=== PATIENT | male | born 1945 | race Caucasian/White ===

== ENCOUNTER → 2019-03-21 09:21 | Outpatient (CLI) | payer MEDICARE, OTHER, SELFPAY ==
--- NOTE | 2019-03-21 09:25 | DI.CT.S_ITS ---
PROCEDURE: CT CHEST ABD PEL W CON INDICATIONS: right testicular seminoma pT3 pNx pMx, right. TECHNIQUE: After the administration of oral and intravenous contrast, 5 mm thick sections acquired from the lung apices to the symphysis. 5 mm coronal and sagittal reformats were performed, with additional 7 mm coronal MIP reformats through the lungs. For radiation dose reduction, the following was used: automated exposure control, adjustment of mA and/or kV according to patient size. COMPARISON: CT abdomen pelvis 01/25/2019, 11/28/2015. FINDINGS: Image quality: Excellent. CHEST: Lungs and pleura: No acute airspace opacities. No mass or significant pulmonary nodule perigastric granuloma in the right middle lobe. No pleural effusions or pneumothorax. Central and peripheral airways appear patent and normal in caliber. Mediastinum: Heart size is normal. Three-vessel coronary artery calcifications. No pericardial effusion. No mediastinal or hilar adenopathy by size criteria. Thoracic aorta and central pulmonary arteries are normal in size. Esophagus is normal in caliber. No hiatal hernia. Chest wall: No axillary or supraclavicular adenopathy by size criteria. Thyroid gland is unremarkable. Cervical spine ACDF. ABDOMEN: Solid organs: Liver is normal in size and enhancement. Small hypodensity in segment 4 which is unchanged since 2016 and most likely represents a cyst or hemangioma. No suspicious focal lesion. Gallbladder is unremarkable. Biliary system is non dilated. Pancreas enhances normally. Spleen is normal in size and enhancement. No adrenal nodules. Kidneys demonstrate normal size and enhancement, without hydronephrosis. Peritoneum and bowel: Bowel loops demonstrate normal wall thickness and caliber. No free fluid or air. Nodes and vessels: -Aortocaval lymph node measuring 2 x 1.8 cm, (2/72), previously remeasured 1.4 x 1.2 cm. -There may be a nonenlarged lymph node immediately superior. Aorta and inferior vena cava are normal in size. Miscellaneous: No ventral hernias. PELVIS: Genitourinary: Bladder wall thickness is normal. Miscellaneous: There is a small volume of fluid in the right inguinal canal with surrounding enhancement. As measures approximately 4.8 x 2.5 cm, (coronal 4/20). Minimal inflammatory change in the subcutaneous tissues. This is at the site of presumed right orchiectomy. Bones: No suspicious bony lesions. No vertebral body compression fractures. IMPRESSION: 1. Enlarging aortocaval lymph node highly suspicious for metastatic disease. 2. Small fluid collection in the right inguinal canal with rim enhancement. This may be due to abscess or postoperative seroma. 3. No metastatic disease in the chest. Comment: Findings were discussed with Nora at [facility] on behalf of Adonis Fox MD at the time of dictation. Dictated by: Carlitos Almonte M.D. on 03/21/2019 at 10:31 Approved by: Carlitos Almonte M.D. on 03/21/2019 at 10:50
== END ==
PROVIDERS: PCP Family Medicine; Visit Provider Internal Medicine Hematology & Oncology
DX: C62.11 Malignant neoplasm of descended right testis (principal); R59.0 Localized enlarged lymph nodes
CPT/HCPCS: 71260; 74177; Q9967

== ENCOUNTER → 2019-04-20 06:27 | Outpatient (CLI) | payer MEDICARE, OTHER, SELFPAY ==
--- NOTE | 2019-04-20 06:28 | DI.ECHO.S_ITS ---
[facility] +---------+ : : [address] : : : : [id number] : : : : Phone: [phone]+ Echocardiogram Report + + :Name: TUNDE BELLO Study Date: 04/20/2019 Height: 69 in : :[facility] Weight: 178 lb : : Gender: Male BSA: 2.0 m2 : :: 1945 Age: 73 yrs BP: 152/74 mmHg: :Reason For Study: PRE CHEMO : : Performed By: [facility] Staff : :Referring: BETHANY BROWN : + + Interpretation Summary The left ventricle is normal in size. The ejection fraction is estimated to be 60-65%. The right ventricle is normal in size and function. There is moderate to severe mitral regurgitation. The IVC is of normal diameter and collapses greater than 50% with a sniff. This suggests a low right atrial pressure of 3 mm Hg. Procedure: A two-dimensional transthoracic echocardiogram with color flow and Doppler was performed. The study quality was technically adequate. There is no prior echocardiogram noted for this patient. The patient was in normal sinus rhythm during the exam. Left Ventricle: The left ventricle is normal in size. Proximal septal thickening is noted. There is no echo evidence for significant left ventricular outflow tract obstruction. There is no thrombus. Left ventricular systolic function is normal. The ejection fraction is estimated to be 60-65%. There are no focal wall motion abnormalities. MV E/A: 1.3 Med Peak E' Zach: 6.9 cm/sec E/E' med: 15.2. Right Ventricle: The right ventricle is normal in size and function. Atria: The left atrium is moderately dilated. Right atrial size is normal. The interatrial septum is intact with no evidence for an atrial septal defect. Mitral Valve: There is mild mitral annular calcification. The mitral valve leaflets appear borderline thickened, but open well. There is moderate to severe mitral regurgitation. Aortic Valve: The aortic valve is trileaflet. The aortic valve opens well. There is mild aortic valve sclerosis. There is no aortic valve stenosis. No aortic regurgitation is present. Tricuspid Valve: The tricuspid valve is normal in structure and function. There is trace tricuspid regurgitation. Pulmonary artery pressures cannot be estimated because of the lack of a measurable TR jet velocity. Pulmonic Valve: The pulmonic valve leaflets are thin and pliable; valve motion is normal. There is trace pulmonic regurgitation. Great Vessels: The aortic root is normal size. The dimensions of the ascending aorta are normal. The pulmonary artery is normal size. The IVC is of normal diameter and collapses greater than 50% with a sniff. This suggests a low right atrial pressure of 3 mm Hg. Pericardium/ Pleura There is no pericardial effusion. There is no pleural effusion. MMode/2D Measurements & Calculations LVIDd: 4.2 cm LVOT diam: 2.0 cm LVIDs: 2.8 cm Ao root diam: 3.5 cm FS: 35.1 % Aortic Jxn: 2.6 cm EPSS: 0.48 cm IVSd: 1.1 cm LVPWd: 1.0 cm LV landaverde. diameter/BSA (cm/m^2): 2.2 LV sys. diameter/BSA (cm/m^2): 1.4 LA A2 area: 23.0 cm2 RA long axis: 4.9 cm LA A4 area: 26.5 cm2 RA area: 16.1 cm2 LA length (vol): 6.2 cm RA vol: 45.0 ml LA vol: 84.1 ml RA : 22.9 ml/m2 LA vol index: 42.8 ml/m2 TAPSE: 1.9 cm Doppler Measurements & Calculations Ao V2 max: 118.6 cm/sec LVOT Max Zach: 96.7 cm/sec Ao V2 mean: 80.1 cm/sec LV V1 max P.7 mmHg Ao max P.6 mmHg LV V1 VTI: 25.4 cm Ao mean P.0 mmHg AMRCIAL(I,D): 3.0 cm2 Ao V2 VTI: 25.8 cm MARCIAL(V,D): 2.5 cm2 sev ratio: 0.98 MARCIAL indexed to BSA (cm^2/m^2): 1.5 MV E max zach: 104.9 cm/sec PA V2 max: 49.3 cm/sec MV A max zach: 80.2 cm/sec PA V2 mean: 39.3 cm/sec MV E/A: 1.3 PA mean P.68 mmHg Med Peak E' Zach: 6.9 cm/sec PA Accel Time: 0.13 sec E/E' med: 15.2 Lat Peak E' Zach: 9.6 cm/sec E/E' lat: 10.9 E/e' average: 13.0 MV dec time: 0.21 sec SV([facility]): 76.7 ml Reading Physician:06:14 PM
== END ==
PROVIDERS: PCP Family Medicine; Visit Provider Internal Medicine Hematology & Oncology
DX: Z01.818 Encounter for other preprocedural examination (principal); C62.11 Malignant neoplasm of descended right testis; I08.0 Rheumatic disorders of both mitral and aortic valves
CPT/HCPCS: 93306

== ENCOUNTER → 2019-04-24 13:05 | Day surgery (SDC) | payer MEDICARE, OTHER, SELFPAY | END | disposition home or self-care (01) | LOC: OR 13:09 | PROVIDERS: PCP Family Medicine; Visit Provider Specialist | DX: C62.91 Malignant neoplasm of right testis, unspecified whether descended or undescended (principal); Z53.9 Procedure and treatment not carried out, unspecified reason | CPT/HCPCS: 36561; J2405; J2704; J3010 ==

== ENCOUNTER 2019-04-26 10:39 | Day surgery (SDC) | payer MEDICARE, OTHER, SELFPAY ==
[2019-04-26] VITALS (7 sets, daily range): BP systolic 120–164; BP diastolic 69–84; PULSE 65–81; RESP 8–20; TEMP 36.1–36.3; O2SAT 96–100; BMI 25.0
--- NOTE | 2019-04-26 | DI.RAD.S_ITS ---
PROCEDURE: XR CHEST 1V INDICATIONS: port placement TECHNIQUE: One view of the chest was acquired. COMPARISON: None. FINDINGS: Surgical changes and devices: Left chest wall Port-A-Cath tip is in SVC. Lungs and pleura: Lungs are clear. No pleural effusions or pneumothorax. Mediastinum: Mediastinal contours appear normal. Heart size is enlarged. Bones and chest wall: No suspicious bony lesions. Overlying soft tissues appear unremarkable. IMPRESSION: Left chest wall Port-A-Cath tip is in SVC. No gross pneumothorax. Dictated by: Ac Greene M.D. on 04/26/2019 at 15:22 Approved by: Ac Greene M.D. on 04/26/2019 at 15:23
[2019-04-26] MEDS: LACTATED RINGERS 1,000 ML 100 ML IV (12:56)
--- NOTE | 2019-04-26 13:26 | PM.PREOP ---
Pre-operative Note Interval Note History & Physical reviewed/Exam performed by Physician: Yes Changes to H&P: No
--- NOTE | 2019-04-26 13:38 | SUR.OPER ---
Supine on padded OR bed, head on pillow, arms secured on padded arm boards at <90 degrees abduction, legs uncrossed, safety belt at thigh, tape over blanket over lower legs.
[2019-04-26] MEDS: CEFAZOLIN 2 GM/100 ML FROZ.PIGGY IV (14:00)
[2019-04-26] MEDS: BUPIVACAINE 0.25% W/ EPI (PF) 10 ML VIAL 20 ML INJ (14:16)
[2019-04-26] MEDS: HEPARIN 5,000 UNIT, SODIUM CHLORIDE 0.9% 50 ML IV (14:18)
--- NOTE | 2019-04-26 15:13 | PM.OP.1 ---
Operative Date/Time/Diagnoses Date of procedure: 04/26/19 Time of procedure: 15:13 Pre-op diagnosis: Testicular cancer Post-op diagnosis: same Procedure & Clinicians Procedure: portacath placement via left IJ, using US and flouro guidance Same procedure as scheduled: Yes Operative Notes Procedure in detail: Patient was placed supine on the operating room table and underwent general LMA anesthesia. The neck and chest were prepped and draped in the usual fashion except. The patient was positioned in Trendelenburg, and local anesthetic was infiltrated beneath the skin overlying the left IJ. The left neck was examined with ultrasound, and an appropriate position on the internal jugular vein was identified. The left IJ was accessed with a large-bore needle and syringe using simultaneous ultrasound guidance. Dark blood returned indicating venous access, and the guidewire was passed through the needle. Fluoroscopy was used to identify the position of the guidewire, which appeared appropriate. A 3 cm transverse incision was then made in the skin on the left chest wall and a 2 cm x 2 cm pocket was created inferior to the incision. The port was put together and flushed with heparinized saline. It was positioned in the pocket, and the tunneler was used to tunnel the catheter up to the jugular vein. A skin incision was made over top of the guide wire, and the dilator and introducer sheath were passed over the wire using fluoro guidance. The wire and dilator were then removed and the sheath was left in place. The catheter was cut to the appropriate length after evaluating its length using fluoro with the catheter position on the patient's chest. Once it was tapered to appropriate length the catheter was passed through the introducer and then the sheath was peeled away. Again using fluoro guidance, the catheter tip appeared to be in good position within the superior vena cava at the cavoatrial junction. The port was fixed to the chest wall using 3 0 silk suture. The skin was closed with 3 0 Vicryl and 4 0 Monocryl, and the skin incisions were sealed with Dermabond. The port was then accessed using a zuniga needle and syringe. I was able to draw back blood easily and flush with 5mL heparanized saline. This concluded the procedure and the patient was awakened from anesthesia and transferred to the postanesthesia care unit in stable condition. Needle sponge and instrument counts were correct x2 at the end of the case. The patient tolerated the procedure well and was transferred to the PACU in stable condition. In the PACU of follow-up chest x-ray was done which showed no pneumothorax and good positioning of the catheter. Complications: none Post-operative Condition: stable Disposition: PACU
--- NOTE | 2019-04-26 15:48 | SUR.PHASEI ---
Discharged patient home with [id number]. RX given for PO narcotic. Ice bag given for operative site. VSS at discharge.
== END 2019-04-26 15:56 | disposition home or self-care (01) ==
PROVIDERS: PCP Family Medicine; Visit Provider Surgery
PROC: (CPT 36561; principal; 2019-04-26 12:45)
DX: C62.91 Malignant neoplasm of right testis, unspecified whether descended or undescended (principal); Z45.2 Encounter for adjustment and management of vascular access device; I10 Essential (primary) hypertension; E03.9 Hypothyroidism, unspecified
CPT/HCPCS: 36561; 71045; 76000; C1788; J0690; J1644

== ENCOUNTER → 2019-05-01 12:09 | Outpatient (CLI) | payer MEDICARE, OTHER, SELFPAY ==
--- NOTE | 2019-05-05 08:34 | PM.PFT.1 ---
Pulmonary Function Test Referral & Results Date Patient Seen: 05/01/19 Requesting provider: Adonis Fox Indication: Cancer Results: The spirometry demonstrates an FVC of 2.68 L which is 62% of predicted. The FEV1 was measured at 2.66 L which is 84% of predicted. The FEV1/FVC ratio was 99 which is 136% of predicted. No bronchodilator was administered Lung volumes show an SVC of 3.87 L which is 85% of predicted. The diffusing capacity was measured at 22.15 which is 68% of predicted. No hemoglobin value was provided, so no correction for potential anemia could be made, if appropriate. The maximum voluntary ventilation was normal Interpretation: This study demonstrates mild obstructive lung disease based on slight reduction in FEV1 although this is not supported by shape of flow volume loop There also may be mild restrictive lung disease based on slight reduction SVC There is a more significant reduction in diffusing capacity (unless patient is anemic) is suggest more significant disease at the capillary alveolar level Overall this study seems to show some element of pulmonary vascular disease that evidence of any truly significant parenchymal disease
== END ==
PROVIDERS: PCP Family Medicine; Visit Provider Internal Medicine Hematology & Oncology
DX: Z01.818 Encounter for other preprocedural examination (principal)
CPT/HCPCS: 94060; 94726; 94729

== ENCOUNTER 2019-05-05 08:07 | Outpatient (RCR) | payer MEDICARE, OTHER, SELFPAY ==
[2019-05-05 08:15] VITALS: BP 141/66; PULSE 50; RESP 20; TEMP 36.3; O2SAT 100
[2019-05-05] MEDS: SODIUM CHLORIDE 0.9% 1,000 ML 500 ML IV (08:16)
[2019-05-05] MEDS: ONDANSETRON 16 MG in SODIUM CHLORIDE 0.9% 50 ML 232 ML IV (08:17)
[2019-05-05] MEDS: LORazepam 0.5 MG TABLET PO (08:39)
[2019-05-05] MEDS: MANNITOL IV (09:49)
[2019-05-05] MEDS: [UNRECOGNIZED DRUG - OTHER] IV (09:49)
[2019-05-05] MEDS: CISPLATIN IV (09:49)
[2019-05-05] MEDS: MAGNESIUM SULFATE IV (09:49)
[2019-05-05] MEDS: NORMAL SALINE IV (11:13)
[2019-05-05] MEDS: ETOPOSIDE IV (11:13)
== END 2019-05-23 13:36 ==
LOC: INF 08:07
PROVIDERS: PCP Family Medicine; Visit Provider Internal Medicine Hematology & Oncology
DX: Z01.818 Encounter for other preprocedural examination (principal); C62.11 Malignant neoplasm of descended right testis
CPT/HCPCS: J1100; J2405

== ENCOUNTER → 2019-05-15 09:32 | Outpatient (CLI) | payer MEDICARE, OTHER, SELFPAY ==
--- NOTE | 2019-05-15 09:34 | DI.CT.S_ITS ---
PROCEDURE: CT HEAD/BRAIN WO CON INDICATIONS: MULTIPLE FALLS TECHNIQUE: Noncontrast 4.5 mm thick angled axial sections acquired from the foramen magnum to the vertex, with coronal and sagittal reformats. For radiation dose reduction, the following was used: automated exposure control, adjustment of mA and/or kV according to patient size. COMPARISON: None. FINDINGS: Image quality: Excellent. CSF spaces: Basal cisterns are patent. No extra-axial fluid collections. The ventricles are symmetric in size and shape. Brain: No intracranial bleeds or masses. There is cerebral volume loss for age, with resultant ventricular and sulcal prominence. There are periventricular and deep white matter chronic small vessel ischemic changes. There is intracranial internal carotid artery atherosclerosis. Skull and face: Calvarium and visualized facial bones appear intact, without suspicious lesions. Sinuses: Visualized sinuses and mastoids are clear. IMPRESSION: No acute intracranial hemorrhage is seen. No acute intracranial process is seen. Note is made of age-appropriate brain parenchymal volume loss and chronic small vessel ischemic changes. Dictated by: Matt Kang M.D. on 05/15/2019 at 8:48 Approved by: Matt Kang M.D. on 05/15/2019 at 8:49
== END ==
PROVIDERS: PCP Family Medicine; Visit Provider Internal Medicine Hematology & Oncology
DX: R29.6 Repeated falls (principal); C62.11 Malignant neoplasm of descended right testis
CPT/HCPCS: 70450

== ENCOUNTER 2019-05-15 09:44 | Emergency (ER) | payer MEDICARE, OTHER, SELFPAY ==
[2019-05-15] VITALS (20 sets, daily range): BP systolic 76–139; BP diastolic 48–84; PULSE 69–151; RESP 13–24; TEMP 36.4; O2SAT 90–100
--- NOTE | 2019-05-15 10:01 | DI.RAD.S_ITS ---
PROCEDURE: XR CHEST 1V INDICATIONS: chest pain TECHNIQUE: One view of the chest was acquired. COMPARISON: [facility], CT, CT CHEST ABD PEL W CON, 03/21/2019, 10:08. [facility], CR, XR CHEST 1V, 04/26/2019, 15:04. FINDINGS: Surgical changes and devices: Left chest wall henrietta catheter, tip of which projects over the upper SVC. Lungs and pleura: Lungs are clear. No pleural effusions or pneumothorax. Body fold artifact projects over the left upper chest. Mediastinum: Mediastinal contours appear normal. Heart size is normal. Bones and chest wall: No suspicious bony lesions. Overlying soft tissues appear unremarkable. IMPRESSION: No acute process. Dictated by: Lakisha Moreno M.D. on 05/15/2019 at 10:52 Approved by: Lakisha Moreno M.D. on 05/15/2019 at 10:54
--- NOTE | 2019-05-15 10:03 | ED_ITS ---
HPI - Arrhythmia/Palpitations General Chief Complaint: Arrhythmia/Palpitations Stated Complaint: Having a hard time walking. 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 He was at the infusion oncology clinic for an infusion today when they noted his heart rate to be in the 150s and blood pressure in the 80s along with abnormal blood work. His creatinine is 5.1 it was previously normal, and a potassium at 2.6. He was dizzy and lightheaded over the weekend he almost passed out but he continues to drink fluids. He can't continues to urinate he has felt nauseous but no vomiting. He has about 6 episodes of diarrhea a day but he said it's not actually too bad. He gets short of breath with exertion which is not abnormal for him. Related Data Home Medications Medication Instructions Recorded Confirmed acetaminophen [Tylenol Extra 500 mg PO Q4H PRN 03/20/19 05/15/19 Strength] diphenhydramine-acetaminophen 1 tab PO BEDTIME PRN 03/20/19 05/15/19 [Tylenol PM Extra Strength] levothyroxine [Synthroid] 150 mcg PO DAILY 03/20/19 05/15/19 lisinopril 20 mg PO BID 03/20/19 05/15/19 loratadine 10 mg PO DAILY 03/20/19 05/15/19 multivitamin 1 cap PO DAILY 03/20/19 05/15/19 vitamin B complex 1 tab PO DAILY 03/20/19 05/15/19 atorvastatin 40 mg PO DAILY 04/20/19 05/15/19 Previous Rx's Medication Instructions Recorded docusate sodium 100 mg PO BID #20 cap 04/26/19 ondansetron HCl [Zofran] 4 mg PO Q6H 60 Days #240 tab 05/01/19 Allergies Allergy/AdvReac Type Severity Reaction Status Date / Time No Known Drug Allergies Allergy Verified 05/15/19 10:01 Review of Systems Review of Systems ROS Unobtainable: All systems reviewed & are unremarkable except as noted in HPI and below Constitutional Constitutional: Denies chills, Denies fever(s), Denies lethargy and Denies weakness Cardiovascular Cardiovascular: Reports rapid heart rate and Reports lightheadedness Gastrointestinal Gastrointestinal: Denies abdominal pain, Denies change in bowel habits, Denies diarrhea, Denies nausea and Denies vomiting Genitourinary Genitourinary: Reports as per HPI, Denies hematuria, Denies flank pain, Denies urinary incontinence and Denies urinary urgency Musculoskeletal Musculoskeletal: Denies back pain, Denies muscle weakness, Denies numbness and Denies tingling Integumentary/Breasts Skin/Breast: Denies pruritus, Denies erythema, Denies rash and Denies wounds Neurologic Neurologic: Denies numbness, Denies tingling and Denies weakness Patient History Medical History Hyperlipidemia (Acute) Hypertension (Acute) Hypothyroidism (Acute) Stroke (Acute) Testicular cancer (Acute) Surgical History History of neck surgery (Acute ~1986) Hx of unilateral orchiectomy (Acute 02/23/19) Family History Mother Alzheimer disease Father Heart disease Social History household members: other occupational status: previously employed Smoking Status: Former smoker alcohol intake: never substance use type: does not use Smoking Status: Former smoker alcohol intake frequency: 0-2 drinks per day Substance Use Type: does not use Exam Initial Vital Signs Initial Vital Signs: Vital Signs Temperature 97.6 F 05/15/19 09:45 Pulse Rate 151 H 05/15/19 09:45 Respiratory Rate 24 05/15/19 09:45 Blood Pressure 139/84 05/15/19 09:45 Pulse Oximetry 100 05/15/19 09:45 GENERAL: Chronically ill male and in no acute distress. HEENT: Head atraumatic,EOMI, pupils reactive, CARDIOVASCULAR: Tachycardic irregularly irregular RESPIRATORY: Breath sounds equal bilaterally, no wheezes rales or rhonchi. ABDOMEN: Soft, nontender. Normoactive bowel sounds all 4 quadrants. No guarding or rebound. EXTREMITIES: Normal range of motion, no clubbing or edema. Neurovascularly intact NEUROLOGICAL: Alert and oriented x4.Normal gait and speech. Cranial nerves II t hrough XII grossly intact. SKIN: Warm, dry, no laceration, no petechiae, no rashes or lesions. Course Orders Ordered: ED Orders 05/15/19 10:01 XR chest 1V Stat EKG-12 Lead Stat 05/15/19 10:09 Complete Blood Count AUTO DIFF Stat Comprehensive Metabolic Panel Stat Lipase Stat Magnesium Stat Partial Thromboplastin Time Stat Prothrombin Time INR Stat Troponin & CK Cardiac Panel Stat 05/15/19 13:35 Troponin I Stat 05/15/19 14:54 US renal complete Stat DILTIAZEM (Diltiazem 125 Mg/125 Ml-D5w) 125 mg in 125 mls @ 5 mls/hr IV TITRATE DAE; Protocol Last Titration: 05/15/19 16:22 Dose: 0 mg/hr, 0 mls/hr Documented by: Titration: 05/15/19 14:05 Dose: 0 mg/hr, 0 mls/hr Documented by: Admin: 05/15/19 11:32 Dose: 5 mg/hr, 5 mls/hr Documented by: COREY Discontinued Medications Aspirin (Aspirin Chew) 324 mg PO NOW ONE Stop: 05/15/19 11:14 Last Admin: 05/15/19 11:26 Dose: 324 mg Documented by: COREY Diltiazem HCl (Cardizem) 10 mg IV NOW ONE Stop: 05/15/19 10:15 Last Admin: 05/15/19 10:34 Dose: 10 mg Documented by: MARYELLEN Sodium Chloride (Normal Saline 0.9%) 1,000 mls @ 1,000 mls/hr IV BOLUS ONE Stop: 05/15/19 11:09 Last Infusion: 05/15/19 11:10 Dose: 0 mls/hr Documented by: Admin: 05/15/19 10:10 Dose: 1,000 mls/hr Documented by: MARYELLEN Potassium Chloride 40 meq/ (Sodium Chloride) 520 mls @ 130 mls/hr IV NOW ONE Stop: 05/15/19 15:11 Last Infusion: 05/15/19 16:19 Dose: 0 mls/hr Documented by: MARYELLEN Cosigned by: COREY Admin: 05/15/19 11:39 Dose: 130 mls/hr Documented by: COREY Cosigned by: TERRIE Sodium Chloride (Normal Saline 0.9%) 1,000 mls @ 150 mls/hr IV BOLUS ONE Stop: 05/15/19 18:04 Last Infusion: 05/15/19 16:23 Dose: 0 mls/hr Documented by: Admin: 05/15/19 11:27 Dose: 150 mls/hr Documented by: MARYELLEN Metoprolol Tartrate (Lopressor) 5 mg IV NOW ONE Stop: 05/15/19 14:42 Last Admin: 05/15/19 14:49 Dose: 5 mg Documented by: CPRUITT Consultations Consultation #1: Dr. Nicholson Time: 11:48 Vital Signs Vital signs: Vital Signs - 8 hr 05/15/19 10:45 05/15/19 10:55 05/15/19 11:10 Pulse Rate 116 H 117 H 124 H Respiratory Rate 18 20 15 Blood Pressure [Left Arm] 95/49 L 76/55 L 100/48 L Pulse Oximetry 99 99 05/15/19 11:25 05/15/19 11:55 05/15/19 12:05 Pulse Rate 69 110 H 110 H Respiratory Rate 20 17 17 Blood Pressure [Left Arm] 83/56 L 95/52 L 82/52 L Pulse Oximetry 100 100 100 05/15/19 12:15 05/15/19 12:30 05/15/19 13:10 Pulse Rate 115 H 119 H 120 H Respiratory Rate 18 18 17 Blood Pressure [Left Arm] 84/64 L 79/54 L 99/51 L Pulse Oximetry 94 94 99 05/15/19 14:48 05/15/19 14:57 05/15/19 15:05 Pulse Rate 116 H 111 H 107 H Respiratory Rate 15 13 14 Blood Pressure [Left Arm] 95/59 L 92/64 94/57 L Pulse Oximetry 100 100 96 05/15/19 16:00 Pulse Rate 107 H Respiratory Rate 16 Blood Pressure [Left Arm] 101/66 Pulse Oximetry 90 L MDM - Arrhythmia/Palpitations Lab Data Attestation: I reviewed the patient's lab results. Result diagrams: 05/15/19 10:09 05/15/19 10:09 Labs: Lab Results 05/15/19 05/15/19 05/15/19 Range/Units 10:09 10:09 10:09 WBC 2.5 L (4.5-11.0) X10^3/uL RBC 3.77 L (4.5-5.9) X10^6/uL Hgb 11.6 L (13.5-17.5) g/dL Hct 34.0 L (41-53) % MCV 90.1 (80-100) fL MCH 30.9 (26-34) PG MCHC 34.3 (30-36) % RDW 12.7 (11.6-14.8) % Plt Count 182 (150-400) X10^3/uL Neut % (Auto) Not Reportable Lymph % (Auto) Not Reportable Orange % (Auto) Not Reportable Eos % (Auto) Not Reportable Baso % (Auto) Not Reportable Lymph # (Auto) Not Reportable Orange # (Auto) Not Reportable Baso # (Auto) Not Reportable Total Counted 100 Seg Neutrophils % 33.0 L (38-70) % Band Neutrophils % 10.0 H (3-7) % Lymphocytes % (Manual) 16.0 L (25-45) % Atypical Lymphs % 2.0 H ( - 0) % Monocytes % (Manual) 35.0 H (2-11) % Metamyelocytes % 2.0 H (-0) % Myelocytes % 2.0 H (-0) % Neutrophils # (Manual) 1075 L (0703-8804) /uL RBC Morphology See below [employer] Cells 1+ H PT 15.7 H (10.1-12.7) SECONDS INR 1.4 H (0.9-1.3) APTT 27 (26.4-36.2) SECONDS Sodium 133 L (137-145) mmol/L Potassium 2.2 L* (3.4-5.1) mmol/L Chloride 100 (98-107) mmol/L Carbon Dioxide 15 L (22-32) mmol/L BUN 81 H (9-20) mg/dL Creatinine 4.70 H (0.66-1.25) mg/dL Estimated GFR 12.3 L (>60) mL/min BUN/Creatinine Ratio 17.2 (6-22) Glucose 121 H (80-110) mg/dL Calcium 8.1 L (8.4-10.2) mg/dL Magnesium (1.6-2.3) mg/dL Total Bilirubin 0.5 (0.2-1.3) mg/dL AST 43 (17-59) IU/L ALT 86 H (<50) IU/L Alkaline Phosphatase 72 (38-126) U/L Total Creatine Kinase 210 H (55-170) U/L CK-MB (CK-2) 10.80 H (<2.37) ng/mL CK-MB (CK-2) Rel Index 5.1 H (1.5-5.0) % Troponin I 0.272 H* (0.01-0.034) ng/mL Total Protein 5.6 L (6.3-8.2) g/dL Albumin 3.0 L (3.5-5.0) g/dL Globulin 2.6 (1.7-4.1) g/dL Albumin/Globulin Ratio 1.2 (1.0-2.8) Lipase 25 (23-300) U/L 05/15/19 05/15/19 Range/Units 10:09 13:35 WBC (4.5-11.0) X10^3/uL RBC (4.5-5.9) X10^6/uL Hgb (13.5-17.5) g/dL Hct (41-53) % MCV (80-100) fL MCH (26-34) PG MCHC (30-36) % RDW (11.6-14.8) % Plt Count (150-400) X10^3/uL Neut % (Auto) Lymph % (Auto) Orange % (Auto) Eos % (Auto) Baso % (Auto) Lymph # (Auto) Orange # (Auto) Baso # (Auto) Total Counted Seg Neutrophils % (38-70) % Band Neutrophils % (3-7) % Lymphocytes % (Manual) (25-45) % Atypical Lymphs % ( - 0) % Monocytes % (Manual) (2-11) % Metamyelocytes % (-0) % Myelocytes % (-0) % Neutrophils # (Manual) (3232-6675) /uL RBC Morphology Cristy Cells PT (10.1-12.7) SECONDS INR (0.9-1.3) APTT (26.4-36.2) SECONDS Sodium (137-145) mmol/L Potassium (3.4-5.1) mmol/L Chloride (98-107) mmol/L Carbon Dioxide (22-32) mmol/L BUN (9-20) mg/dL Creatinine (0.66-1.25) mg/dL Estimated GFR (>60) mL/min BUN/Creatinine Ratio (6-22) Glucose (80-110) mg/dL Calcium (8.4-10.2) mg/dL Magnesium 2.1 (1.6-2.3) mg/dL Total Bilirubin (0.2-1.3) mg/dL AST (17-59) IU/L ALT (<50) IU/L Alkaline Phosphatase (38-126) U/L Total Creatine Kinase (55-170) U/L CK-MB (CK-2) (<2.37) ng/mL CK-MB (CK-2) Rel Index (1.5-5.0) % Troponin I 0.210 H* (0.01-0.034) ng/mL Total Protein (6.3-8.2) g/dL Albumin (3.5-5.0) g/dL Globulin (1.7-4.1) g/dL Albumin/Globulin Ratio (1.0-2.8) Lipase (23-300) U/L Imaging Data Chest x-ray: Radiologist's Impresson: PROCEDURE: XR CHEST 1V INDICATIONS: chest pain TECHNIQUE: One view of the chest was acquired. COMPARISON: [facility], CT, CT CHEST ABD PEL W CON, 03/21/2019, 10:08. [facility], CR, XR CHEST 1V, 04/26/2019, 15:04. FINDINGS: Surgical changes and devices: Left chest wall henrietta catheter, tip of which projects over the upper SVC. Lungs and pleura: Lungs are clear. No pleural effusions or pneumothorax. Body fold artifact projects over the left upper chest. Mediastinum: Mediastinal contours appear normal. Heart size is normal. Bones and chest wall: No suspicious bony lesions. Overlying soft tissues appe ar unremarkable. IMPRESSION: No acute process. Dictated by: Lakisha Moreno M.D. on 05/15/2019 at 10:52 CT scan - head: My Impression: Outpatient CT head Radiologist's Impresson: [address] [address] [address] Scan Report Signed Patient: [place] Jr WMR#: [id number] : 1946Acct:[id number] Age/Sex: 73 / MDate of Service: 05/15/19 Loc: CT Accession Number: [id number] Procedure: CT head/brain wo con Ordering Provider: Adonis Fox MD PROCEDURE: CT HEAD/BRAIN WO CON INDICATIONS: MULTIPLE FALLS TECHNIQUE: Noncontrast 4.5 mm thick angled axial sections acquired from the foramen magnum to the vertex, with coronal and sagittal reformats. For radiation dose reduction, the following was used: automated exposure control, adjustment of mA and/or kV according to patient size. COMPARISON: None. FINDINGS: Image quality: Excellent. CSF spaces: Basal cisterns are patent. No extra-axial fluid collections. The ventricles are symmetric in size and shape. Brain: No intracranial bleeds or masses. There is cerebral volume loss for age, with resultant ventricular and sulcal prominence. There are periventricular and deep white matter chronic small vessel ischemic changes. There is intracranial internal carotid artery atherosclerosis. Skull and face: Calvarium and visualized facial bones appear intact, without suspicious lesions. Sinuses: Visualized sinuses and mastoids are clear. IMPRESSION: No acute intracranial hemorrhage is seen. No acute intracranial process is seen. Note is made of age-appropriate brain parenchymal volume loss and chronic small vessel ischemic changes. Dictated by: Matt Kang M.D. on 05/15/2019 at 8:48 ECG Data Attestation: I personally reviewed and interpreted this ECG as follows: Prior ECG tracings: not available for review Interpretation: Atrial fibrillation rate [address] elevation depression or T- wave inversion no priors to compare MDM Narrative Medical decision making narrative: Patient is noted to have acute kidney injury with significant increasing creatinine although it has improved a little with some IV fluids. Potassium still seems to be low at 2.2 he is in new onset AFib with RVR with low blood pressure. Blood pressure does improve with IV fluids and heart rate control slightly. Due to patient's significant increase in creatinine will need to be transferred to facility with his nephrology available if needed. Troponin is also noted to be elevated this is likely due to AFib with RVR and acute kidney injury. Patient denies chest pain. He is given an aspirin. Repeat troponin has decreased some. Dr. nicholson at [facility] has accepted patient, Critical Care Time Critical Care Time Critical Care Time: Yes Total Critical Care Time: 45 Attestation: The high probability of a clinically significant, sudden or life threatening deterioration of the [cardiovascular] system(s) required my full and direct attention, intervention and personal management. The aggregate critical care time was [45] minutes. This time is in addition to time spent performing reported procedures but includes the following: [x] Data Review and interpretation [x] Patient assessment and monitoring of vital signs [x] Documentation [x] Medication orders and management Discharge Plan Departure Patient Disposition: [facility]fer [facility] Prescriptions: No Action lisinopril 20 mg Tablet 20 mg PO BID RF: 0 acetaminophen [Tylenol Extra Strength] 500 mg Tablet 500 mg PO Q4H PRN (Reason: Pain (Scale Score 1-3)) RF: 0 levothyroxine [Synthroid] 150 mcg Tablet 150 mcg PO DAILY RF: 0 vitamin B complex Tablet 1 tab PO DAILY RF: 0 diphenhydramine-acetaminophen [Tylenol PM Extra Strength] 25-500 mg Tablet 1 tab PO BEDTIME PRN (Reason: Insomnia) RF: 0 multivitamin Capsule 1 cap PO DAILY RF: 0 loratadine 10 mg Tablet 10 mg PO DAILY RF: 0 ondansetron HCl [Zofran] 4 mg Tablet 4 mg PO Q6H 60 Days Qty: 240 RF: 3 atorvastatin 40 mg Tablet 40 mg PO DAILY RF: 0 docusate sodium 100 mg capsule 100 mg PO BID Qty: 20 RF: 0
[2019-05-15] MEDS: SODIUM CHLORIDE 0.9% 1,000 ML 1000 ML IV (10:10)
[2019-05-15 10:22] LABS: Hemoglobin 11.6 g/dL (13.5-17.5); Mean Corpuscular HGB Conc 34.3 % (30-36); Mean Corpuscular Hemoglobin 30.9 PG (26-34); Mean Corpuscular Volume 90.1 fL (80-100); Platelet Count 182 X10^3/uL (150-400); Red Blood Cell Count 3.77 X10^6/uL (4.5-5.9); Red Cell Distribution Width 12.7 % (11.6-14.8); White Blood Cell Count 2.5 X10^3/uL (4.5-11.0)
[2019-05-15 10:29] LABS: Add Manual Diff / Slide Review YES
[2019-05-15 10:30] LABS: INR 1.4 (0.9-1.3); Prothrombin Time 15.7 SECONDS (10.1-12.7)
[2019-05-15 10:32] LABS: PTT Partial Thromboplastin Tim 27 SECONDS (26.4-36.2)
[2019-05-15] MEDS: dilTIAZem 5 MG/ML SDV 10 MG IV (10:34)
[2019-05-15 10:36] LABS: Magnesium 2.1 mg/dL (1.6-2.3)
[2019-05-15 10:41] LABS: Alanine Aminotransferase 86 IU/L (<50); Albumin Globulin Ratio 1.2 (1.0-2.8); Alkaline Phosphatase 72 U/L (38-126); Aspartate Aminotransferase 43 IU/L (17-59); BUN Creatinine Ratio 17.2 (6-22); Bilirubin Total 0.5 mg/dL (0.2-1.3); Blood Urea Nitrogen 81 mg/dL (9-20); Calcium 8.1 mg/dL (8.4-10.2); Carbon Dioxide 15 mmol/L (22-32); Chloride 100 mmol/L (98-107); Creatine Kinase 210 U/L (55-170); Estimated Glomerular Filt Rate 12.3 mL/min (>60); Globulin 2.6 g/dL (1.7-4.1); Glucose 121 mg/dL (80-110); HEMOLYSIS < 15 (0-50); Lipase 25 U/L (23-300); Sodium 133 mmol/L (137-145); Total Protein 5.6 g/dL (6.3-8.2)
[2019-05-15 10:56] LABS: CKMB % Relative Index 5.1 % (1.5-5.0)
[2019-05-15 11:12] LABS: Neutrophils Absolute Manual 1075 /uL (3000-5900); Total Cells Counted 100
[2019-05-15 11:13] LABS: Burr Cells 1+; Potassium 2.2 mmol/L (3.4-5.1); Troponin I 0.272 ng/mL (0.01-0.034)
[2019-05-15] MEDS: ASPIRIN 81 MG CHEW TAB 324 MG PO (11:26)
[2019-05-15] MEDS: SODIUM CHLORIDE 0.9% 1,000 ML 150 ML IV (11:27)
[2019-05-15] MEDS: DILTIAZEM 125 MG/125 ML PIGGYBACK IV (11:32)
[2019-05-15] MEDS: POTASSIUM CHLORIDE 40 MEQ in SODIUM CHLORIDE 0.9% 500 ML 130 ML IV (11:39)
[2019-05-15] MEDS: METOPROLOL TARTRATE 5 MG/5 ML INJ IV (14:49)
--- NOTE | 2019-05-15 14:54 | DI.US.S_ITS ---
PROCEDURE: US RENAL COMPLETE INDICATIONS: RENAL FAILURE TECHNIQUE: Real-time scanning was performed of the kidneys and bladder, with image documentation. COMPARISON: [facility], CT, CT CHEST ABD PEL W CON, 03/21/2019, 10:08. [facility], CT, CT ABDOMEN PELVIS WITH CONTRAST, 01/25/2019, 8:42. FINDINGS: Kidneys: Kidneys are normal in size. Right kidney measures 9.7 cm long; left kidney measures 10.7 cm long. Right renal cortical thickness is 1.0 cm; left renal cortical thickness is 1.4 cm. mild increased echogenicity of the kidneys is present. No hydronephrosis or shadowing nephrolithiasis. No suspicious solid mass lesions. Bladder: Pre-void bladder volume is 450 mL. The patient was unable to void at the time of this exam. Thickening and slight irregularity of the wall of the urinary bladder is present. The prostate measures at least 3.1 x 3.1 x 4.7 cm. Bilateral ureteral jets were visualized. Miscellaneous: No free pelvic fluid. IMPRESSION: 1. No hydronephrosis or shadowing nephrolithiasis. 2. Increased echogenicity of the kidneys with mild cortical thinning is suggestive of chronic medical renal disease and clinical correlation is recommended. 3. Distended bladder. The patient was unable to void at the time of the exam. Dictated by: David Cleary M.D. on 05/15/2019 at 15:26 Approved by: David lCeary M.D. on 05/15/2019 at 15:29
--- NOTE | 2019-05-15 16:22 | PC.NURSE ---
Report called to Erin SANTA at [facility].
== END 2019-05-15 16:39 | disposition short-term general hospital (02) ==
PROVIDERS: Emergency Provider Emergency Medicine; PCP Family Medicine
DX: N17.9 Acute kidney failure, unspecified (principal); I48.20 Chronic atrial fibrillation, unspecified; I95.9 Hypotension, unspecified; E87.6 Hypokalemia; R29.6 Repeated falls; C62.11 Malignant neoplasm of descended right testis; R42 Dizziness and giddiness
CPT/HCPCS: 36415; 70450; 71045; 76770; 80053; 82550; 82553; 83690; 83735; 84484; 85025; 85610; 85730; 93005; 96361; 96365; 96366; 96368; 96375; 99284; 99291; 99292; J3480

== ENCOUNTER → 2019-05-29 10:13 | Outpatient (CLI) | payer MEDICARE, OTHER, SELFPAY ==
--- NOTE | 2019-05-29 11:03 | DI.US.S_ITS ---
PROCEDURE: US PERIPH VENOUS LOW EXTREM LT INDICATIONS: LEFT LEG SWELLING TECHNIQUE: Real-time imaging, as well as color and pulse Doppler interrogation, were performed of the lower extremity deep veins from the inguinal ligament to the popliteal fossa. COMPARISON: None. FINDINGS: The common femoral, femoral and popliteal veins are normally compressible, and free of intraluminal thrombus. Color and pulse Doppler demonstrate normal phasic intraluminal flow. There is normal augmentation response to distal compression maneuver. Subcutaneous edema about the left lower leg is present. No drainable or loculated fluid collections are evident on the provided images. IMPRESSION: No evidence of left lower extremity deep vein thrombosis. Dictated by: David Cleary M.D. on 05/29/2019 at 11:53 Approved by: David Cleary M.D. on 05/29/2019 at 11:54
== END ==
PROVIDERS: PCP Family Medicine; Visit Provider Internal Medicine Hematology & Oncology
DX: M79.89 Other specified soft tissue disorders (principal); C62.11 Malignant neoplasm of descended right testis
CPT/HCPCS: 93971

== ENCOUNTER → 2019-06-13 13:22 | Outpatient (CLI) | payer MEDICARE, OTHER, SELFPAY ==
--- NOTE | 2019-06-13 13:24 | DI.CT.S_ITS ---
PROCEDURE: CT CHEST WO CON INDICATIONS: hypoxia, on bleomycin treatment, testicular cancer TECHNIQUE: Noncontrast 5 mm thick sections acquired from the pulmonary apices to the posterior costophrenic angles. 1 mm lung window, 5 mm thick coronal and sagittal and 7 mm axial MIP reformats were then acquired. For radiation dose reduction, the following was used: automated exposure control, adjustment of mA and/or kV according to patient size. COMPARISON: [facility], CT, CT CHEST ABD PEL W CON, 03/21/2019, 10:08. FINDINGS: Image quality: Diagnostic. Lungs and pleura: There has been interval development of patchy subpleural airspace disease throughout the lungs, which is predominantly seen within the bilateral lung bases. No larger pulmonary consolidation is evident. Mild bronchiectasis is noted. There is no honeycombing. No effusions or pneumothorax is evident. No lung mass or definite pulmonary nodule is appreciated. Mediastinum: Heart size is enlarged. No pericardial effusion. No mediastinal adenopathy by size criteria. Thoracic aorta and central pulmonary arteries are normal in size. Coronary and aortic atherosclerosis is present. No thoracic aneurysm is identified. There is a left-sided Port-A-Cath central line identified with the tip positioned within the mid superior vena cava. Mild prominence of the wall of the esophagus is present. There is a small moderate-sized hiatal hernia. Bones and chest wall: No suspicious bony lesions. A T12 compression deformity appears grossly unchanged since the prior exam. Prominent degenerative changes of the spine are evident. No axillary or supraclavicular adenopathy by size criteria. Thyroid gland is not adequately evaluated on CT, but does not appear to be enlarged. Abdomen: Included portions of the upper abdomen are essentially unremarkable. Perinephric edema about the upper portions of the kidneys probably senescent. IMPRESSION: 1. Patchy subpleural airspace disease throughout the lungs has developed in the interim, which could potentially represent interval development of an atypical form of pneumonia. However, this appearance is suspicious for either developing organizing pneumonia or pulmonary fibrotic changes, which may be related to bleomycin treatment. Pulmonology consultation may be helpful. Followup CT imaging in 3 months is also recommended. 2. No effusion or pneumothorax. 3. Cardiomegaly without overt heart failure. 4. Small to moderate-sized hiatal hernia. Mild prominence of the wall of the esophagus may be related to chronic reflux. Please correlate clinically. Dictated by: David Cleary M.D. on 06/13/2019 at 12:53 Approved by: David Cleary M.D. on 06/13/2019 at 12:59
== END ==
PROVIDERS: PCP Family Medicine; Visit Provider Internal Medicine Hematology & Oncology
DX: C62.11 Malignant neoplasm of descended right testis (principal); R09.02 Hypoxemia; I51.7 Cardiomegaly; K44.9 Diaphragmatic hernia without obstruction or gangrene; I70.0 Atherosclerosis of aorta; I25.10 Atherosclerotic heart disease of native coronary artery without angina pectoris
CPT/HCPCS: 71250

== ENCOUNTER → 2019-06-15 09:00 | Oncology outpatient (ONC) | payer MEDICARE, OTHER, SELFPAY ==
--- NOTE | 2019-03-20 08:53 | ONC.CONS ---
History of Present Illness - Data of Consult Patient: new to practice Consult date: 03/20/19 Requesting Physician: Dr. De Lamas MD Primary Care Provider: Yaakov Carl MD - Consult Narrative Reason for consult: Right testicular seminoma Narrative: Alexander Zambrano is a 73 year old male. He himself first noticed a painless bump in his right testicle one week before seeing Dr. Aaron Mesa a [facility]. On 01/20/2019, scrotal ultrasound a heterogeneous echogenicity shrunken appearing testis on the right measuring up to 3.2 cm, large right scrotal hydrocele, lobular mass in the right scrotum measuing up to 5.4 cm with heterogenous internal echogenicity. On 01/25/2019, he underwent CT abdomen and pelvis that showed an irregular right scrotal mass with large right hydrocele, interval single 1 cm short axis precaval lymph node, but no other adenopathy or solid visceral metastasis. Mild hepatic steatosis noted. a 1 cm hypodensity in segment 4a of the liver compatible with cyst or hemangioma, and incidental findings of severe atherosclerosis and mild colonic diverticulosis. On 02/13/2019 labs showed AFP 1.8 ng/mL (ref: < 6.1), LDH 220, HCG 7.67 mIU/mL (ref: 0-3.1) CXR on 02/13/2019 showed no acute cardiopulmonary abnormality. Feb 23, 2019, De Mckeon performed inguinal radical right orchiectomy. he final pathology showed seminoma, 7.2 x 5.5 x 3.8 cm, unifocal, tumor invading the tunica albuginea and tunica vaginitis, tumor invading the epididymis, tumor invading spermatic cord, all margins negative, lymphovascular invasion negative, no lymph node identified, and the pathological staging was pT3 pNx. Post-operatively, he has been having persistent drainage from the right scrotum skin break. He admits to good energy. Good appetite. He is complaining of numbness of both bottom of the feet, which is an old problem and he believes it is caused by exposure to [employer] [place]. No pain problems. No Shortness of breath. No cough. No nausea and no vomiting. No chest pain. No stomach pain. No diarrhea, no constipation. De Lamas MD Patient reports pain?: No Home Medications and Allergies Home Medications Medication Instructions Recorded Confirmed Type acetaminophen [Tylenol Extra 500 mg PO Q4H PRN 03/20/19 03/20/19 History Strength] diphenhydramine-acetaminophen 1 tab PO BEDTIME PRN 03/20/19 03/20/19 History [Tylenol PM Extra Strength] docusate sodium [Colace] 100 mg PO TID 03/20/19 03/20/19 History levothyroxine [Synthroid] 150 mcg PO DAILY 03/20/19 03/20/19 History lisinopril 20 mg PO BID 03/20/19 03/20/19 History loratadine 10 mg PO DAILY 03/20/19 03/20/19 History multivitamin 1 cap PO DAILY 03/20/19 03/20/19 History vitamin B complex 1 tab PO DAILY 03/20/19 03/20/19 History Medical History - Medical, Surgical, Family History Medical History: Medical History (Last Updated 03/20/19 @ 09:16 by Adonis Fox MD) Hyperlipidemia Hypertension Hypothyroidism Surgical History: Surgical History (Last Updated 03/20/19 @ 09:16 by Adonis Fox MD) History of neck surgery Onset Date: ~2014 Family History: Family History (Last Updated 03/20/19 @ 09:17 by Adonis Fox MD) Mother Alzheimer disease - Social History Smoking Status: Former smoker Quit Date: 11/14/66 Substance Use Type: does not use Alcohol Intake: former (quited 2014) Review of Systems All systems PM: reviewed and no additional remarkable complaints except as stated Exam Vital signs: Last Vital Signs Temp 98.2 F 03/20/19 09:12 Pulse 73 03/20/19 09:12 Resp 18 03/20/19 09:12 BP 151/81 H 03/20/19 09:12 Pulse Ox 100 03/20/19 09:12 - Constitutional positive no acute distress, positive average body habitus, positive cooperative - Routine HEENT Exam Head: Present: normocephalic, atraumatic Eye: Present: EOMI, PERRL, normal accommodation. Absent: conjunctival icterus ENT: Present: mucous membranes moist - Routine Neck Exam Present: supple. Absent: lymphadenopathy, thyromegaly - Routine Chest/Breast/Axilla Exam Axillae: Absent: lymphadenopathy - Routine Respiratory Exam Present: Clear to auscultation bilaterally. Absent: wheezes - Routine Cardiovascular Exam Present: RRR, S1, S2. Absent: murmur, gallop, rubs - Routine Abdominal Exam Present: soft. Absent: tenderness, distended, organomegaly - Routine Extremities Exam Absent: edema - Routine Neurological Exam Present: alert, oriented X3, CN II-XII intact. Absent: sensory deficit, motor deficit - Routine Psychiatric Exam Present: normal affect Results - Labs Laboratory Last Values WBC 7.7 X10^3/uL (4.5-11.0) 03/20/19 10:00 RBC 4.06 X10^6/uL (4.5-5.9) L 03/20/19 10:00 Hgb 12.7 g/dL (13.5-17.5) L 03/20/19 10:00 Hct 37.6 % (41-53) L 03/20/19 10:00 MCV 92.7 fL (80-100) 03/20/19 10:00 MCH 31.2 PG (26-34) 03/20/19 10:00 MCHC 33.7 % (30-36) 03/20/19 10:00 RDW 13.3 % (11.6-14.8) 03/20/19 10:00 Plt Count 333 X10^3/uL (150-400) 03/20/19 10:00 Neut % (Auto) 63.5 % (50-75) 03/20/19 10:00 Lymph % (Auto) 24.6 % (25-40) L 03/20/19 10:00 [place] % (Auto) 5.6 % (3-14) 03/20/19 10:00 Eos % (Auto) 5.2 % (2-4) H 03/20/19 10:00 Baso % (Auto) 1.1 % (0-2) 03/20/19 10:00 Neut # (Auto) 4900 /uL (5719-6016) 03/20/19 10:00 Lymph # (Auto) 1900 /uL (8312-6828) 03/20/19 10:00 Jay # (Auto) 400 /uL (0-900) 03/20/19 10:00 Eos # (Auto) 400 /uL (0-450) 03/20/19 10:00 Baso # (Auto) 100 /uL (0-100) 03/20/19 10:00 Sodium 139 mmol/L (137-145) 03/20/19 10:00 Potassium 4.6 mmol/L (3.4-5.1) 03/20/19 10:00 Chloride 103 mmol/L (98-107) 03/20/19 10:00 Carbon Dioxide 27 mmol/L (22-32) 03/20/19 10:00 BUN 20 mg/dL (9-20) 03/20/19 10:00 Creatinine 0.90 mg/dL (0.66-1.25) 03/20/19 10:00 Estimated GFR > 60.0 mL/min (>60) 03/20/19 10:00 BUN/Creatinine Ratio 22.2 (6-22) H 03/20/19 10:00 Glucose 99 mg/dL (80-110) 03/20/19 10:00 Calcium 9.7 mg/dL (8.4-10.2) 03/20/19 10:00 Total Bilirubin 0.5 mg/dL (0.2-1.3) 03/20/19 10:00 AST 32 IU/L (17-59) 03/20/19 10:00 ALT 27 IU/L (<50) 03/20/19 10:00 Alkaline Phosphatase 89 U/L (38-126) 03/20/19 10:00 Lactate Dehydrogenase 422 U/L (313-618) 03/20/19 10:00 Total Protein 7.5 g/dL (6.3-8.2) 03/20/19 10:00 Albumin 4.4 g/dL (3.5-5.0) 03/20/19 10:00 Globulin 3.1 g/dL (1.7-4.1) 03/20/19 10:00 Albumin/Globulin Ratio 1.4 (1.0-2.8) 03/20/19 10:00 HCG, Quant < 2.39 mIU/mL (-2.40) 03/20/19 10:00 Assessment and Plan (1) Seminoma of descended right testis Overview: 73 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 Preoperative beta HCG 7.67, AFP 1.8 and LDH 220. Assessment: Postoperatively, patient has not had a repeat CT scan yet. I talked with the patient I will first repeat CT scan and tumor markers. Then, I will talk with him about the stages. Most likely patient has a stage IB pure seminoma. Options include observation or 1 cycle of carboplatin. Plan: 1. CBC, CMP, LDH, BHCG, AFP 2. CT CAP w/contrast 3. RTC in one week
[2019-03-20 09:12] VITALS: BP 151/81; PULSE 73; RESP 18; TEMP 36.8; O2SAT 100
--- NOTE | 2019-03-20 09:45 | ONC.MSW ---
Description: New Pt Intro: f/f visit Activity: Met with pt to introduce myself in person as the BUILDING CODE ADMINISTRATOR/MARGIE, offer services card and establish rapport. Explained availability of ongoing assistance, support and availability to address any ongoing concerns/questions that he may have. No immediate needs were identified at this time. Plan: Continue to monitor for adjustment to diagnosis and treatment plan.
[2019-03-20 10:10] LABS: Add Manual Diff / Slide Review NO; Basophils Absolute Auto 100 /uL (0-100); Basophils Percent Auto 1.1 % (0-2); Eosinophils Absolute Auto 400 /uL (0-450); Eosinophils Percent Auto 5.2 % (2-4); Hematocrit 37.6 % (41-53); Hemoglobin 12.7 g/dL (13.5-17.5); Lymphocytes Absolute Auto 1900 /uL (1100-4500); Lymphocytes Percent Auto 24.6 % (25-40); Mean Corpuscular HGB Conc 33.7 % (30-36); Mean Corpuscular Hemoglobin 31.2 PG (26-34); Mean Corpuscular Volume 92.7 fL (80-100); Monocytes Absolute Auto 400 /uL (0-900); Monocytes Percent Auto 5.6 % (3-14); Neutrophils Absolute Auto 4900 /uL (1500-7000); Neutrophils Percent Auto 63.5 % (50-75); Platelet Count 333 X10^3/uL (150-400); Red Blood Cell Count 4.06 X10^6/uL (4.5-5.9); Red Cell Distribution Width 13.3 % (11.6-14.8); White Blood Cell Count 7.7 X10^3/uL (4.5-11.0)
[2019-03-20 10:28] LABS: Alanine Aminotransferase 27 IU/L (<50); Albumin 4.4 g/dL (3.5-5.0); Albumin Globulin Ratio 1.4 (1.0-2.8); Alkaline Phosphatase 89 U/L (38-126); Aspartate Aminotransferase 32 IU/L (17-59); BUN Creatinine Ratio 22.2 (6-22); Bilirubin Total 0.5 mg/dL (0.2-1.3); Blood Urea Nitrogen 20 mg/dL (9-20); Calcium 9.7 mg/dL (8.4-10.2); Carbon Dioxide 27 mmol/L (22-32); Chloride 103 mmol/L (98-107); Estimated Glomerular Filt Rate > 60.0 mL/min (>60); Globulin 3.1 g/dL (1.7-4.1); Glucose 99 mg/dL (80-110); HEMOLYSIS < 15 (0-50); Lactate Dehydrogenase 422 U/L (313-618); Potassium 4.6 mmol/L (3.4-5.1); Sodium 139 mmol/L (137-145); Total Protein 7.5 g/dL (6.3-8.2)
[2019-03-20 10:44] LABS: HCG Quantitative /Beta subunit < 2.39 mIU/mL (-2.40)
[2019-03-22 15:17] LABS: Alpha Fetoprotein 1.5 ng/mL (< 6.1)
[2019-04-10 13:42] VITALS: BP 136/79; PULSE 80; RESP 18; TEMP 36.6; O2SAT 100
--- NOTE | 2019-04-10 13:53 | ONC.PN ---
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 He himself first noticed a painless bump in his right testicle one week before seeing Dr. Aaron Mesa a [facility]. On 01/20/2019, scrotal ultrasound a heterogeneous echogenicity shrunken appearing testis on the right measuring up to 3.2 cm, large right scrotal hydrocele, lobular mass in the right scrotum measuing up to 5.4 cm with heterogenous internal echogenicity. On 01/25/2019, he underwent CT abdomen and pelvis that showed an irregular right scrotal mass with large right hydrocele, interval single 1 cm short axis precaval lymph node, but no other adenopathy or solid visceral metastasis. Mild hepatic steatosis noted. a 1 cm hypodensity in segment 4a of the liver compatible with cyst or hemangioma, and incidental findings of severe atherosclerosis and mild colonic diverticulosis. On 02/13/2019 labs showed AFP 1.8 ng/mL (ref: < 6.1), LDH 220, HCG 7.67 mIU/mL (ref: 0-3.1) CXR on 02/13/2019 showed no acute cardiopulmonary abnormality. Feb 23, 2019, De Mckeon performed inguinal radical right orchiectomy. he final pathology showed seminoma, 7.2 x 5.5 x 3.8 cm, unifocal, tumor invading the tunica albuginea and tunica vaginitis, tumor invading the epididymis, tumor invading spermatic cord, all margins negative, lymphovascular invasion negative, no lymph node identified, and the pathological staging was pT3 pNx. Interim Events: No Shortness of breath. No cough. No nausea and no vomiting. No chest pain. No stomach pain. No diarrhea, no constipation. He underwent CT CAP on 03/21/2019. The scan showed enlarging aortocaval lymph node highly suspicious for metastatic disease, small fluid collection in the right inguinal canal with rim enhancement, and no metastatic disease in the chest. - Patient Self-Reported Symptoms SR respiratory issues: Cough Home Medications and Allergies Home Medications Medication Instructions Recorded Confirmed Type acetaminophen [Tylenol Extra 500 mg PO Q4H PRN 03/20/19 03/20/19 History Strength] diphenhydramine-acetaminophen 1 tab PO BEDTIME PRN 03/20/19 03/20/19 History [Tylenol PM Extra Strength] docusate sodium [Colace] 100 mg PO TID 03/20/19 03/20/19 History levothyroxine [Synthroid] 150 mcg PO DAILY 03/20/19 03/20/19 History lisinopril 20 mg PO BID 03/20/19 03/20/19 History loratadine 10 mg PO DAILY 03/20/19 03/20/19 History multivitamin 1 cap PO DAILY 03/20/19 03/20/19 History vitamin B complex 1 tab PO DAILY 03/20/19 03/20/19 History Exam Vital signs: Vital Signs Temp Pulse Resp BP Pulse Ox 04/10/19 13:42 97.8 F 80 18 136/79 100 Intake and Output 04/09/19 04/10/19 04/10/19 23:59 07:59 15:59 Other: Weight 80 kg Patient Weight 04/10/19 23:59 Weight 80 kg Results - Labs Laboratory Last Values WBC 7.7 X10^3/uL (4.5-11.0) 03/20/19 10:00 RBC 4.06 X10^6/uL (4.5-5.9) L 03/20/19 10:00 Hgb 12.7 g/dL (13.5-17.5) L 03/20/19 10:00 Hct 37.6 % (41-53) L 03/20/19 10:00 MCV 92.7 fL (80-100) 03/20/19 10:00 MCH 31.2 PG (26-34) 03/20/19 10:00 MCHC 33.7 % (30-36) 03/20/19 10:00 RDW 13.3 % (11.6-14.8) 03/20/19 10:00 Plt Count 333 X10^3/uL (150-400) 03/20/19 10:00 Neut % (Auto) 63.5 % (50-75) 03/20/19 10:00 Lymph % (Auto) 24.6 % (25-40) L 03/20/19 10:00 [place] % (Auto) 5.6 % (3-14) 03/20/19 10:00 Eos % (Auto) 5.2 % (2-4) H 03/20/19 10:00 Baso % (Auto) 1.1 % (0-2) 03/20/19 10:00 Neut # (Auto) 4900 /uL (4945-6167) 03/20/19 10:00 Lymph # (Auto) 1900 /uL (1885-1279) 03/20/19 10:00 [place] # (Auto) 400 /uL (0-900) 03/20/19 10:00 Eos # (Auto) 400 /uL (0-450) 03/20/19 10:00 Baso # (Auto) 100 /uL (0-100) 03/20/19 10:00 Sodium 139 mmol/L (137-145) 03/20/19 10:00 Potassium 4.6 mmol/L (3.4-5.1) 03/20/19 10:00 Chloride 103 mmol/L (98-107) 03/20/19 10:00 Carbon Dioxide 27 mmol/L (22-32) 03/20/19 10:00 BUN 20 mg/dL (9-20) 03/20/19 10:00 Creatinine 0.90 mg/dL (0.66-1.25) 03/20/19 10:00 Estimated GFR > 60.0 mL/min (>60) 03/20/19 10:00 BUN/Creatinine Ratio 22.2 (6-22) H 03/20/19 10:00 Glucose 99 mg/dL (80-110) 03/20/19 10:00 Calcium 9.7 mg/dL (8.4-10.2) 03/20/19 10:00 Total Bilirubin 0.5 mg/dL (0.2-1.3) 03/20/19 10:00 AST 32 IU/L (17-59) 03/20/19 10:00 ALT 27 IU/L (<50) 03/20/19 10:00 Alkaline Phosphatase 89 U/L (38-126) 03/20/19 10:00 Lactate Dehydrogenase 422 U/L (313-618) 03/20/19 10:00 Total Protein 7.5 g/dL (6.3-8.2) 03/20/19 10:00 Albumin 4.4 g/dL (3.5-5.0) 03/20/19 10:00 Globulin 3.1 g/dL (1.7-4.1) 03/20/19 10:00 Albumin/Globulin Ratio 1.4 (1.0-2.8) 03/20/19 10:00 Alpha Fetoprotein 1.5 ng/mL (< 6.1) 03/20/19 10:00 HCG, Quant < 2.39 mIU/mL (-2.40) 03/20/19 10:00 Assessment and Plan (1) Seminoma of descended right testis Overview: 73 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 Preoperative beta HCG 7.67, AFP 1.[address] scan showed enlarging aortocaval lymph nodes highly suspicious for involvement of seminoma. His disease staging was pT3 cN1 (stage IIA). Assessment: I reviewed the CT scan results with the patient. It showed enlargement of the aortocaval lymph nodes highly suspicious for neoplastic metastasis. This case was discussed at our monthly tumor Board. The tumor board recommended adjuvant therapy for this patient given the increase in the aortocaval lymph nodes. Based on NCCN guidelines, I discussed with the patient that there are 2 options: chemotherapy with BEP x3 versus radiation therapy. I discussed the pros and cons of both of them. First I talked about the chemotherapy with bleomycin etoposide and cisplatin. I talked about the possibility of complications including bone marrow suppression, hair loss, kidney damage, neuropathy, pulmonary damage, etc. I also talked about potential side effects of radiation therapy including intestinal radiation induced damage is etc. Patient decided that he would like to go for chemotherapy. Then I talked with him about the the port placement. Patient voiced understanding. I have tentatively schedule the chemotherapy to be started on 05/01/2019. Plan: 1. Surgical Referral for port placement 2. Echocardiogram 3. PFT with DLCO 3. Tentatively BEP x3 to be started 05/01/2019
--- NOTE | 2019-04-19 15:35 | PC.NURSE ---
Chemotherapy Education: Pt provided written information on all topics discussed. Written materials printed from www.[facility].com Pt was given an overview of cancer and mechanism of action of cancer cells, that cancer is caused by cells that are dividing rapidly, and out of control. Traditional chemotherapy works by targeting the fast dividing cells and killing them. Chemotherapy affecting healthy cells dividing quickly causes many of the side effects (hair follicles, bone marrow, mucus membranes). Overview of blood cell functions of white cells to fight infection, red cells to carry oxygen, and platelets to stop bleeding was discussed, and that when bone marrow is affected by chemo, there is a decrease in production of these cells. Home care of the patient following chemotherapy was discussed. Body fluids will be contaminated for 48 hours following treatment, and any body fluids handled by caregivers should be handled wearing gloves, surfaces need to be cleaned with soap and water, any soiled linens or clothing need to be washed separately in hot water, toilet lid should be closed when flushing, person cleaning the toilet should wear gloves. How chemotherapy is administered by the RN?s in the clinic, that orders are double checked by pharmacy and checked again by two RN?s prior to administration. Nurses wear protective gear to prevent exposure to them of the chemotherapy agents which can also cause cancer. Cancer center information discussed and written hand out provided listing on-call oncologist available weekends and after hours triage R.N. hours and infusion room guide. New patient folder given to pt, which includes clinic names, phone numbers, clinic information, calendar, cancer glossary, and list of resources. Handout on advanced directives Common side effects of chemotherapy were discussed with self care tips for prevention of complications. Information also provided in writing. These included: Low blood counts (anemia, thrombocytopenia, neutropenia) Hair loss (alopecia) Nausea and vomiting Decreased appetite Loss of fertility Diarrhea Mouth sores Constipation Peripheral neuropathy Chemo brain/cognitive changes Fatigue Instructions on when to call your healthcare team or on-call physician immediately: Fever of 100.4 or higher, chills, any signs of infection Shortness of breath, wheezing, difficulty breathing, closing of throat, swelling of face, hives (signs of possible allergic reaction) Chest pain, fast heart beat or feelings of a different heart rhythm Swelling of an extremity with or without pain signs of stroke Instructions on when to call your healthcare team within the next 24 hours Nausea that interferes with ability to eat and unrelieved with prescribed medication Diarrhea (4-6 episodes in 24 hour period). Unusual bleeding or bruising Black or tarry stools, or blood in your stools Blood in the urine pain or burning with urination Extreme fatigue (unable to perform self-care activities) Mouth sores or sore areas in your mouth Bad headache Dizziness or lightheadedness Large weight gain over a short period of time General self-care tips while undergoing treatment discussed were as follows. Written materials were provided covering in detail and additional self care tips. Drink at least 2-3 quarts (8-10 glasses) of no-caffeinated beverages daily unless you are instructed otherwise and empty your bladder frequently Report any concerning symptoms to your healthcare team Avoid crowds and sick people, wash your hands frequently Use a soft bristled toothbrush, rinse three times a day with 1 tsp baking soda or 1 tsp salt mixed with warm water Avoid any mouthwashes or oral and skin products containing alcohol or fragrances Use electric razors to avoid cutting yourself Avoid contact sports or activities that could cause head injury or bleeding Avoid sun exposure, wear SPF 15 or higher, wear protective clothing Get plenty of rest, meter your activities Maintain good nutrition Avoid alcoholic beverages Attend your scheduled appointments and lab draws Treatment regimen reviewed and medications were discussed with attention to specific side effects and self care for the pt?s treatment regimen. Pt encouraged to keep a list of questions that may arise after this teaching session and bring back to next clinic visit to address. All pt's questions answered at this time. Pt verbalizes understanding of treatment plan.
--- NOTE | 2019-04-24 08:58 | PC.NURSE ---
Patient called requesting more clarification of the type of drugs he will be getting, the length of treatment and the days of treatment.Patient informed per orders panel, schedule and Dr's report and encouraged to call back if more questions.
--- NOTE | 2019-05-01 08:36 | ONC.PN ---
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 He himself first noticed a painless bump in his right testicle one week before seeing Dr. Aaron Mesa a [facility]. On 01/20/2019, scrotal ultrasound a heterogeneous echogenicity shrunken appearing testis on the right measuring up to 3.2 cm, large right scrotal hydrocele, lobular mass in the right scrotum measuing up to 5.4 cm with heterogenous internal echogenicity. On 01/25/2019, he underwent CT abdomen and pelvis that showed an irregular right scrotal mass with large right hydrocele, interval single 1 cm short axis precaval lymph node, but no other adenopathy or solid visceral metastasis. Mild hepatic steatosis noted. a 1 cm hypodensity in segment 4a of the liver compatible with cyst or hemangioma, and incidental findings of severe atherosclerosis and mild colonic diverticulosis. On 02/13/2019 labs showed AFP 1.8 ng/mL (ref: < 6.1), LDH 220, HCG 7.67 mIU/mL (ref: 0-3.1) CXR on 02/13/2019 showed no acute cardiopulmonary abnormality. Feb 23, 2019, De Mckeon performed inguinal radical right orchiectomy. he final pathology showed seminoma, 7.2 x 5.5 x 3.8 cm, unifocal, tumor invading the tunica albuginea and tunica vaginitis, tumor invading the epididymis, tumor invading spermatic cord, all margins negative, lymphovascular invasion negative, no lymph node identified, and the pathological staging was pT3 pNx. He underwent CT CAP on 03/21/2019. The scan showed enlarging aortocaval lymph node highly suspicious for metastatic disease, small fluid collection in the right inguinal canal with rim enhancement, and no metastatic disease in the chest. TUMOR BOARD discussion deemed that the aortocaval lymph node is highly suspicious for metastasis. Adjuvant chemotherapy is recommended. Interim Events: No Shortness of breath. No cough. No nausea and no vomiting. No chest pain. No stomach pain. No diarrhea, no constipation. He presents here today for initiation of chemotherapy with BEP. - Patient Self-Reported Symptoms SR respiratory issues: Cough - Additional ROS All systems PM: reviewed and no additional remarkable complaints except as stated Home Medications and Allergies Home Medications Medication Instructions Recorded Confirmed Type acetaminophen [Tylenol Extra 500 mg PO Q4H PRN 03/20/19 05/01/19 History Strength] diphenhydramine-acetaminophen 1 tab PO BEDTIME PRN 03/20/19 05/01/19 History [Tylenol PM Extra Strength] docusate sodium [Colace] 100 mg PO TID 03/20/19 05/01/19 History levothyroxine [Synthroid] 150 mcg PO DAILY 03/20/19 05/01/19 History lisinopril 20 mg PO BID 03/20/19 05/01/19 History loratadine 10 mg PO DAILY 03/20/19 05/01/19 History multivitamin 1 cap PO DAILY 03/20/19 05/01/19 History vitamin B complex 1 tab PO DAILY 03/20/19 05/01/19 History atorvastatin 40 mg PO DAILY 04/20/19 05/01/19 History docusate sodium 100 mg PO BID #20 cap 04/26/19 05/01/19 Rx oxycodone 5 mg PO Q8H PRN #10 tab 04/26/19 05/01/19 Rx ondansetron HCl [Zofran] 4 mg PO Q6H 60 Days #240 tab 05/01/19 Rx Allergies Allergy/AdvReac Type Severity Reaction Status Date / Time No Known Drug Allergies Allergy Verified 04/26/19 12:57 Exam Vital signs: Last Vital Signs Temp 97.9 F 05/01/19 09:00 Pulse 69 05/01/19 09:00 Resp 16 05/01/19 09:00 BP 147/68 H 05/01/19 09:00 Pulse Ox 98 05/01/19 09:00 ECOG 1 - Constitutional positive no acute distress, positive average body habitus, positive cooperative - Routine HEENT Exam Head: Present: normocephalic, atraumatic Eye: Present: EOMI, PERRL, normal accommodation. Absent: conjunctival icterus ENT: Present: mucous membranes moist - Routine Neck Exam Present: supple. Absent: lymphadenopathy - Routine Chest/Breast/Axilla Exam Axillae: Absent: lymphadenopathy - Routine Respiratory Exam Present: Clear to auscultation bilaterally. Absent: wheezes - Routine Cardiovascular Exam Present: RRR, S1, S2. Absent: murmur, gallop, rubs - Routine Abdominal Exam Present: soft. Absent: tenderness, distended, organomegaly - Routine Extremities Exam Absent: edema - Routine Skin Exam Present: intact - Routine Neurological Exam Present: alert, oriented X3, CN II-XII intact, normal reflexes, normal tone, vision grossly intact, hearing grossly intact, normal speech. Absent: sensory deficit, motor deficit - Routine Psychiatric Exam Present: normal affect Results - Labs Laboratory Last Values WBC 7.7 X10^3/uL (4.5-11.0) 03/20/19 10:00 RBC 4.06 X10^6/uL (4.5-5.9) L 03/20/19 10:00 Hgb 12.7 g/dL (13.5-17.5) L 03/20/19 10:00 Hct 37.6 % (41-53) L 03/20/19 10:00 MCV 92.7 fL (80-100) 03/20/19 10:00 MCH 31.2 PG (26-34) 03/20/19 10:00 MCHC 33.7 % (30-36) 03/20/19 10:00 RDW 13.3 % (11.6-14.8) 03/20/19 10:00 Plt Count 333 X10^3/uL (150-400) 03/20/19 10:00 Neut % (Auto) 63.5 % (50-75) 03/20/19 10:00 Lymph % (Auto) 24.6 % (25-40) L 03/20/19 10:00 Gage % (Auto) 5.6 % (3-14) 03/20/19 10:00 Eos % (Auto) 5.2 % (2-4) H 03/20/19 10:00 Baso % (Auto) 1.1 % (0-2) 03/20/19 10:00 Neut # (Auto) 4900 /uL (9805-5350) 03/20/19 10:00 Lymph # (Auto) 1900 /uL (4666-9376) 03/20/19 10:00 Gage # (Auto) 400 /uL (0-900) 03/20/19 10:00 Eos # (Auto) 400 /uL (0-450) 03/20/19 10:00 Baso # (Auto) 100 /uL (0-100) 03/20/19 10:00 Sodium 139 mmol/L (137-145) 03/20/19 10:00 Potassium 4.6 mmol/L (3.4-5.1) 03/20/19 10:00 Chloride 103 mmol/L (98-107) 03/20/19 10:00 Carbon Dioxide 27 mmol/L (22-32) 03/20/19 10:00 BUN 20 mg/dL (9-20) 03/20/19 10:00 Creatinine 0.90 mg/dL (0.66-1.25) 03/20/19 10:00 Estimated GFR > 60.0 mL/min (>60) 03/20/19 10:00 BUN/Creatinine Ratio 22.2 (6-22) H 03/20/19 10:00 Glucose 99 mg/dL (80-110) 03/20/19 10:00 Calcium 9.7 mg/dL (8.4-10.2) 03/20/19 10:00 Total Bilirubin 0.5 mg/dL (0.2-1.3) 03/20/19 10:00 AST 32 IU/L (17-59) 03/20/19 10:00 ALT 27 IU/L (<50) 03/20/19 10:00 Alkaline Phosphatase 89 U/L (38-126) 03/20/19 10:00 Lactate Dehydrogenase 422 U/L (313-618) 03/20/19 10:00 Total Protein 7.5 g/dL (6.3-8.2) 03/20/19 10:00 Albumin 4.4 g/dL (3.5-5.0) 03/20/19 10:00 Globulin 3.1 g/dL (1.7-4.1) 03/20/19 10:00 Albumin/Globulin Ratio 1.4 (1.0-2.8) 03/20/19 10:00 Alpha Fetoprotein 1.5 ng/mL (< 6.1) 03/20/19 10:00 HCG, Quant < 2.39 mIU/mL (-2.40) 03/20/19 10:00 Assessment and Plan (1) Seminoma of descended right testis Overview: 73 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 Preoperative beta HCG 7.67, AFP 1.[address] scan showed enlarging aortocaval lymph nodes highly suspicious for involvement of seminoma. His disease staging was pT3 cN1 (stage IIA). Assessment: I reviewed all the lab tests with the patient. However patient has not had the pulmonary function test with DLCO done yet. We called the lab and scheduled a stat tests. I explained to the patient that one of the three medications is bleomycin. Bleomycin is known to cause pulmonary toxicity including pneumonitis and pulmonary fibrosis etc. It is important to obtain a baseline pulmonary function test against which we can compare with during the treatment with bleomycin. Patient himself said that he stopped smoking more than 35 years ago. 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 He does not think he has any abnormal pulmonary function. Plan: 1. Stat PFT DLCO 2. Ok to proceed to cycle 1 BEP 3. Weekly CBC, CMP 4. RTC on 05/22/2019 for C2# BEP 5. Instructed him to call for any concerns or questions.
[2019-05-01 08:44] LABS: Add Manual Diff / Slide Review NO; Basophils Absolute Auto 100 /uL (0-100); Basophils Percent Auto 1.2 % (0-2); Eosinophils Absolute Auto 400 /uL (0-450); Eosinophils Percent Auto 6.1 % (2-4); Hematocrit 35.8 % (41-53); Hemoglobin 12.3 g/dL (13.5-17.5); Lymphocytes Absolute Auto 1900 /uL (1100-4500); Mean Corpuscular HGB Conc 34.5 % (30-36); Mean Corpuscular Hemoglobin 31.9 PG (26-34); Mean Corpuscular Volume 92.4 fL (80-100); Monocytes Absolute Auto 700 /uL (0-900); Neutrophils Absolute Auto 3000 /uL (1500-7000); Neutrophils Percent Auto 49.7 % (50-75); Platelet Count 273 X10^3/uL (150-400); Red Blood Cell Count 3.87 X10^6/uL (4.5-5.9); Red Cell Distribution Width 13.5 % (11.6-14.8)
[2019-05-01 08:53] LABS: Alanine Aminotransferase 17 IU/L (<50); Albumin 4.2 g/dL (3.5-5.0); Albumin Globulin Ratio 1.4 (1.0-2.8); Alkaline Phosphatase 85 U/L (38-126); Aspartate Aminotransferase 33 IU/L (17-59); BUN Creatinine Ratio 16.4 (6-22); Bilirubin Total 0.6 mg/dL (0.2-1.3); Blood Urea Nitrogen 18 mg/dL (9-20); Calcium 9.3 mg/dL (8.4-10.2); Carbon Dioxide 27 mmol/L (22-32); Chloride 105 mmol/L (98-107); Estimated Glomerular Filt Rate > 60.0 mL/min (>60); Glucose 101 mg/dL (80-110); Potassium 4.5 mmol/L (3.4-5.1); Sodium 140 mmol/L (137-145); Total Protein 7.2 g/dL (6.3-8.2)
[2019-05-01 08:56] LABS: HEMOLYSIS 52 (0-50)
[2019-05-01 09:00] VITALS: BP 147/68; PULSE 69; RESP 16; TEMP 36.6; O2SAT 98
[2019-05-01] MEDS: ONDANSETRON 16 MG in SODIUM CHLORIDE 0.9% 50 ML 232 ML IV (10:10)
[2019-05-01] MEDS: ETOPOSIDE IV (10:36)
[2019-05-01] MEDS: NORMAL SALINE IV (10:36)
[2019-05-01] MEDS: FOSAPREPITANT 150 MG in SODIUM CHLORIDE 0.9% 150 ML 300 ML IV (13:22)
[2019-05-01] MEDS: SODIUM CHLORIDE 0.9% 1,000 ML 500 ML IV (14:08)
[2019-05-01] MEDS: LORazepam 0.5 MG TABLET PO (14:10)
[2019-05-01] MEDS: MANNITOL IV (14:21)
[2019-05-01] MEDS: CISPLATIN IV (14:21)
[2019-05-01] MEDS: [UNRECOGNIZED DRUG - OTHER] IV (14:21)
[2019-05-01] MEDS: MAGNESIUM SULFATE IV (14:21)
[2019-05-02] MEDS: ACETAMINOPHEN 325 MG TABLET 650 MG PO (09:43)
[2019-05-02] MEDS: LORazepam 0.5 MG TABLET PO (09:43)
[2019-05-02] MEDS: diphenhydrAMINE 25 MG TABLET PO (09:43)
[2019-05-02 09:45] VITALS: BP 133/72; PULSE 83; RESP 14; TEMP 36.4; O2SAT 96
[2019-05-02] MEDS: SODIUM CHLORIDE 0.9% 1,000 ML 500 ML IV (09:47)
[2019-05-02] MEDS: ONDANSETRON 16 MG in SODIUM CHLORIDE 0.9% 50 ML 232 ML IV (10:08)
[2019-05-02] MEDS: MAGNESIUM SULFATE IV (11:13)
[2019-05-02] MEDS: MANNITOL IV (11:13)
[2019-05-02] MEDS: [UNRECOGNIZED DRUG - OTHER] IV (11:13)
[2019-05-02] MEDS: CISPLATIN IV (11:13)
--- NOTE | 2019-05-02 11:59 | PC.NURSE ---
Constipation: Patient complaining of less frequent stools. Patient states that it has been 2 days since last BM. Patient reports taking Miralax daily to help without much success. Patient states that stool has also been more green in color and smaller in size. Patient given prune juice cocktail during this infusion. Patient here daily this week for infusions and will report any further changes.
[2019-05-02] MEDS: NORMAL SALINE IV (12:30)
[2019-05-02] MEDS: ETOPOSIDE IV (12:30)
[2019-05-02] MEDS: BLEOMYCIN IV (13:53)
[2019-05-02] MEDS: SODIUM CHLORIDE 0.9% IV (13:53)
[2019-05-03] MEDS: LORazepam 0.5 MG TABLET PO (08:53)
[2019-05-03] MEDS: SODIUM CHLORIDE 0.9% 1,000 ML 500 ML IV (09:00)
[2019-05-03] MEDS: ONDANSETRON 16 MG in SODIUM CHLORIDE 0.9% 50 ML 232 ML IV (09:12)
[2019-05-03] MEDS: MAGNESIUM SULFATE IV (09:58)
[2019-05-03] MEDS: MANNITOL IV (09:58)
[2019-05-03] MEDS: [UNRECOGNIZED DRUG - OTHER] IV (09:58)
[2019-05-03] MEDS: CISPLATIN IV (09:58)
[2019-05-03] MEDS: NORMAL SALINE IV (11:27)
[2019-05-03] MEDS: ETOPOSIDE IV (11:27)
[2019-05-04] MEDS: LORazepam 0.5 MG TABLET PO (08:59)
[2019-05-04] MEDS: SODIUM CHLORIDE 0.9% 1,000 ML 500 ML IV (08:59)
[2019-05-04 09:18] VITALS: BP 142/70; PULSE 73; RESP 16; TEMP 36.7
[2019-05-04] MEDS: ONDANSETRON 16 MG in SODIUM CHLORIDE 0.9% 50 ML 232 ML IV (09:22)
[2019-05-04] MEDS: MAGNESIUM SULFATE IV (10:24)
[2019-05-04] MEDS: MANNITOL IV (10:24)
[2019-05-04] MEDS: [UNRECOGNIZED DRUG - OTHER] IV (10:24)
[2019-05-04] MEDS: CISPLATIN IV (10:24)
[2019-05-04] MEDS: NORMAL SALINE IV (11:38)
[2019-05-04] MEDS: ETOPOSIDE IV (11:38)
--- NOTE | 2019-05-05 12:18 | PC.NURSE ---
Patient on acute care floor for chemotherapy infusion. Patient feeling well pre infusion with no problems throughout. See vitals and onc assess.
[2019-05-08 08:48] LABS: Add Manual Diff / Slide Review NO; Basophils Absolute Auto 0 /uL (0-100); Basophils Percent Auto 0.4 % (0-2); Eosinophils Absolute Auto 0 /uL (0-450); Eosinophils Percent Auto 0.3 % (2-4); Hematocrit 35.1 % (41-53); Lymphocytes Absolute Auto 800 /uL (1100-4500); Lymphocytes Percent Auto 11.4 % (25-40); Mean Corpuscular HGB Conc 34.2 % (30-36); Mean Corpuscular Hemoglobin 31.4 PG (26-34); Mean Corpuscular Volume 91.8 fL (80-100); Monocytes Absolute Auto 0 /uL (0-900); Monocytes Percent Auto 0.3 % (3-14); Neutrophils Absolute Auto 6300 /uL (1500-7000); Neutrophils Percent Auto 87.6 % (50-75); Platelet Count 170 X10^3/uL (150-400); Red Blood Cell Count 3.82 X10^6/uL (4.5-5.9); Red Cell Distribution Width 13.1 % (11.6-14.8); White Blood Cell Count 7.1 X10^3/uL (4.5-11.0)
[2019-05-08 08:51] VITALS: BP 123/66; PULSE 61; RESP 16; TEMP 36.4; O2SAT 100
[2019-05-08 09:03] LABS: Alanine Aminotransferase 24 IU/L (<50); Albumin 3.5 g/dL (3.5-5.0); Albumin Globulin Ratio 1.3 (1.0-2.8); Alkaline Phosphatase 69 U/L (38-126); Aspartate Aminotransferase 24 IU/L (17-59); BUN Creatinine Ratio 22.7 (6-22); Blood Urea Nitrogen 25 mg/dL (9-20); Calcium 8.5 mg/dL (8.4-10.2); Carbon Dioxide 26 mmol/L (22-32); Chloride 103 mmol/L (98-107); Estimated Glomerular Filt Rate > 60.0 mL/min (>60); Globulin 2.6 g/dL (1.7-4.1); Glucose 102 mg/dL (80-110); HEMOLYSIS < 15 (0-50); Potassium 4.2 mmol/L (3.4-5.1); Sodium 135 mmol/L (137-145); Total Protein 6.1 g/dL (6.3-8.2)
[2019-05-08] MEDS: ACETAMINOPHEN 325 MG TABLET 650 MG PO (09:12)
[2019-05-08] MEDS: diphenhydrAMINE 25 MG TABLET PO (09:13)
[2019-05-08] MEDS: DEXAMETHASONE 10 MG/ML VIAL 8 MG IV (09:17)
[2019-05-08] MEDS: SODIUM CHLORIDE 0.9% 100 ML 21 ML IV (09:17)
[2019-05-08] MEDS: ONDANSETRON 8 MG in SODIUM CHLORIDE 0.9% 50 ML 216 ML IV (09:40)
[2019-05-08] MEDS: BLEOMYCIN IV (10:29)
[2019-05-08] MEDS: SODIUM CHLORIDE 0.9% IV (10:29)
[2019-05-15] MEDS: SODIUM CHLORIDE 0.9% 1,000 ML 1000 ML IV (08:30)
[2019-05-15 08:58] LABS: Hematocrit 35.9 % (41-53); Hemoglobin 12.4 g/dL (13.5-17.5); Mean Corpuscular HGB Conc 34.6 % (30-36); Mean Corpuscular Volume 89.6 fL (80-100); Platelet Count 213 X10^3/uL (150-400); Red Cell Distribution Width 12.6 % (11.6-14.8); White Blood Cell Count 2.8 X10^3/uL (4.5-11.0)
[2019-05-15 08:59] LABS: Add Manual Diff / Slide Review YES
[2019-05-15 09:03] VITALS: BP 129/59; PULSE 98; RESP 18; TEMP 36.5
[2019-05-15 09:09] LABS: Alanine Aminotransferase 90 IU/L (<50); Albumin 3.4 g/dL (3.5-5.0); Albumin Globulin Ratio 1.3 (1.0-2.8); Alkaline Phosphatase 81 U/L (38-126); Aspartate Aminotransferase 52 IU/L (17-59); BUN Creatinine Ratio 15.7 (6-22); Bilirubin Total 0.6 mg/dL (0.2-1.3); Blood Urea Nitrogen 80 mg/dL (9-20); Calcium 8.7 mg/dL (8.4-10.2); Carbon Dioxide 14 mmol/L (22-32); Chloride 96 mmol/L (98-107); Estimated Glomerular Filt Rate 11.2 mL/min (>60); Globulin 2.7 g/dL (1.7-4.1); Glucose 154 mg/dL (80-110); HEMOLYSIS < 15 (0-50); Sodium 132 mmol/L (137-145); Total Protein 6.1 g/dL (6.3-8.2)
[2019-05-15 09:27] LABS: Potassium 2.6 mmol/L (3.4-5.1)
[2019-05-15 09:35] LABS: Neutrophils Absolute Manual 1092 /uL (3000-5900); Total Cells Counted 100
[2019-05-15 09:36] LABS: Burr Cells 2+
--- NOTE | 2019-05-15 11:00 | PC.NURSE ---
Addendum entered by Zuly Montano R.N. 05/15/19 11:09: pt stated he had N/V 2 hrs after falling the first time. Original Note: pt arrived to infusion clinic, pale, glassy stare with tremors. states, I'm not doing well. pt left in wheel chair to access port; 2 person transfer to recliner. pt states he has fallen at home x6, hitting the back of his head. states he hasn't eaten or drinking much since thrusday. labs drawn. head CT ordered. NS 1000ml infusing over 1 hour. pt taken to ED after head CT. pt's sister with pt. report given to Tyesha SANTA in ED. 2nd liter left with ED staff.
--- NOTE | 2019-05-18 16:13 | PC.NURSE ---
PATIENT PHONE CHECK; patient reports doing much better, no dizziness or falls, he is on metoprolol since hospitilization at [facility], eating and drinking well. He was encouraged to continue drinking lots of water and reminded of F/U appt on 05/22/19 of which he was aware.
[2019-05-22 08:44] VITALS: BP 120/66; PULSE 64; RESP 16; TEMP 36.4; O2SAT 97
--- NOTE | 2019-05-22 08:45 | P.PNONC_ITS ---
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 He himself first noticed a painless bump in his right testicle one week before seeing Dr. Aaron Mesa a [facility]. On 01/20/2019, scrotal ultrasound a heterogeneous echogenicity shrunken appearing testis on the right measuring up to 3.2 cm, large right scrotal hydrocele, lobular mass in the right scrotum measuing up to 5.4 cm with heterogenous internal echogenicity. On 01/25/2019, he underwent CT abdomen and pelvis that showed an irregular right scrotal mass with large right hydrocele, interval single 1 cm short axis precaval lymph node, but no other adenopathy or solid visceral metastasis. Mild hepatic steatosis noted. a 1 cm hypodensity in segment 4a of the liver compatible with cyst or hemangioma, and incidental findings of severe atherosclerosis and mild colonic diverticulosis. On 02/13/2019 labs showed AFP 1.8 ng/mL (ref: < 6.1), LDH 220, HCG 7.67 mIU/mL (ref: 0-3.1) CXR on 02/13/2019 showed no acute cardiopulmonary abnormality. Feb 23, 2019, De Mckeon performed inguinal radical right orchiectomy. he final pathology showed seminoma, 7.2 x 5.5 x 3.8 cm, unifocal, tumor invading the tunica albuginea and tunica vaginitis, tumor invading the epididymis, tumor invading spermatic cord, all margins negative, lymphovascular invasion negative, no lymph node identified, and the pathological staging was pT3 pNx. He underwent CT CAP on 03/21/2019. The scan showed enlarging aortocaval lymph node highly suspicious for metastatic disease, small fluid collection in the right inguinal canal with rim enhancement, and no metastatic disease in the chest. TUMOR BOARD discussion deemed that the aortocaval lymph node is highly suspicious for metastasis. Adjuvant chemotherapy is recommended. Interim Events: During his previous visit, patient was found to have acute kidney failure with serum creatinine level of 4.7. In addition patient was found to have a potassium level of 2.2. Therefore patient was sent to emergency room and received IV fluid resusitation. He was also found to have new onset Afib with RVR. He was transferred to [facility]. Patient was given intravenous potassium supplementation as well as fluid resuscitation. Patient has made significant improvement and was discharged from the hospital 2 days later. On discharge from the hospital, patient's serum creatinine level has improved to 1.41. For the past several days patient has been drinking fluids consistently. Patient said that he has felt a lot better with the fluid hydration. Patient denies any fever or chills. Patient denies nausea or vomiting. He denies abdominal pain. Patient does have some constipation. Pain denies any lower extremity edema. He presents here today for cycle 2 BEP - Patient Self-Reported Symptoms SR respiratory issues: Cough - Additional ROS All systems PM: reviewed and no additional remarkable complaints except as stated Home Medications and Allergies Home Medications Medication Instructions Recorded Confirmed Type acetaminophen [Tylenol Extra 500 mg PO Q4H PRN 03/20/19 05/15/19 History Strength] diphenhydramine-acetaminophen 1 tab PO BEDTIME PRN 03/20/19 05/15/19 History [Tylenol PM Extra Strength] levothyroxine [Synthroid] 150 mcg PO DAILY 03/20/19 05/15/19 History lisinopril 20 mg PO BID 03/20/19 05/15/19 History loratadine 10 mg PO DAILY 03/20/19 05/15/19 History multivitamin 1 cap PO DAILY 03/20/19 05/15/19 History vitamin B complex 1 tab PO DAILY 03/20/19 05/15/19 History atorvastatin 40 mg PO DAILY 04/20/19 05/15/19 History docusate sodium 100 mg PO BID #20 cap 04/26/19 05/15/19 Rx ondansetron HCl [Zofran] 4 mg PO Q6H 60 Days #240 tab 05/01/19 05/15/19 Rx Allergies Allergy/AdvReac Type Severity Reaction Status Date / Time No Known Drug Allergies Allergy Verified 05/15/19 10:01 Exam Vital signs: Vital Signs Temp Pulse Resp BP Pulse Ox 05/22/19 08:44 97.6 F 64 16 120/66 97 Narrative: Gen: WDWN, NAD, pleasant and cooperative. HEENT: NCAT, EOMI, PERRLA, anicteric sclera. Neck: Supple, No palpable thyromegaly or lymphadenopathy. Respiratory: CTAB, no wheezes audible. No JVD Cardiovascular: RRR, S1 and S2 normal, no M/G/R. Abdomen: Soft, NTND, BS normal, no palpable organomegaly Extremities: No LE pitting edema. Lymphatic: no palpable lymph nodes in the neck, axillae, or groins. Neurological: AOx3, CN II-XII grossly intact. No focal motor or sensory deficit. Psychiatric: Good judgment and insight; normal affect; normal thought process; cooperative, no depression, no anxiety. Results - Labs Laboratory Last Values WBC 13.1 X10^3/uL (4.5-11.0) H 05/22/19 08:40 RBC 2.95 X10^6/uL (4.5-5.9) L 05/22/19 08:40 Hgb 9.3 g/dL (13.5-17.5) L 05/22/19 08:40 Hct 26.5 % (41-53) L 05/22/19 08:40 MCV 89.8 fL (80-100) 05/22/19 08:40 MCH 31.4 PG (26-34) 05/22/19 08:40 MCHC 35.0 % (30-36) 05/22/19 08:40 RDW 13.5 % (11.6-14.8) 05/22/19 08:40 Plt Count 598 X10^3/uL (150-400) H 05/22/19 08:40 Neut % (Auto) Not Reportable 05/22/19 08:40 Lymph % (Auto) Not Reportable 05/22/19 08:40 [place] % (Auto) Not Reportable 05/22/19 08:40 Eos % (Auto) Not Reportable 05/22/19 08:40 Baso % (Auto) Not Reportable 05/22/19 08:40 Neut # (Auto) 6300 /uL (5310-9321) 05/08/19 08:35 Lymph # (Auto) Not Reportable 05/22/19 08:40 [place] # (Auto) Not Reportable 05/22/19 08:40 Eos # (Auto) 0 /uL (0-450) 05/08/19 08:35 Baso # (Auto) Not Reportable 05/22/19 08:40 Total Counted 100 05/22/19 08:40 Seg Neutrophils % 68.0 % (38-70) 05/22/19 08:40 Band Neutrophils % 5.0 % (3-7) 05/22/19 08:40 Lymphocytes % (Manual) 9.0 % (25-45) L 05/22/19 08:40 Atypical Lymphs % 4.0 % (-0) H 05/22/19 08:40 Monocytes % (Manual) 12.0 % (2-11) H 05/22/19 08:40 Basophils % (Manual) 1.0 % (0-1) 05/22/19 08:40 Metamyelocytes % 1.0 % (-0) H 05/22/19 08:40 Neutrophils # (Manual) 9563 /uL (5259-0488) H 05/22/19 08:40 RBC Morphology Normal morphology 05/22/19 08:40 [place] Cells 2+ H 05/15/19 08:55 Sodium 138 mmol/L (137-145) 05/22/19 08:40 Potassium 3.8 mmol/L (3.4-5.1) D 05/22/19 08:40 Chloride 104 mmol/L (98-107) 05/22/19 08:40 Carbon Dioxide 30 mmol/L (22-32) 05/22/19 08:40 BUN 12 mg/dL (9-20) 05/22/19 08:40 Creatinine 1.20 mg/dL (0.66-1.25) 05/22/19 08:40 Estimated GFR 59.3 mL/min (>60) L 05/22/19 08:40 BUN/Creatinine Ratio 10.0 (6-22) 05/22/19 08:40 Glucose 96 mg/dL (80-110) 05/22/19 08:40 Calcium 8.4 mg/dL (8.4-10.2) 05/22/19 08:40 Total Bilirubin 0.2 mg/dL (0.2-1.3) 05/22/19 08:40 AST 29 IU/L (17-59) 05/22/19 08:40 ALT 25 IU/L (<50) 05/22/19 08:40 Alkaline Phosphatase 79 U/L (38-126) 05/22/19 08:40 Lactate Dehydrogenase 635 U/L (313-618) H 05/22/19 08:40 Total Protein 5.3 g/dL (6.3-8.2) L 05/22/19 08:40 Albumin 3.0 g/dL (3.5-5.0) L 05/22/19 08:40 Globulin 2.3 g/dL (1.7-4.1) 05/22/19 08:40 Albumin/Globulin Ratio 1.3 (1.0-2.8) 05/22/19 08:40 Alpha Fetoprotein 1.5 ng/mL (< 6.1) 03/20/19 10:00 HCG, Quant < 2.39 mIU/mL (-2.40) 05/22/19 08:40 Assessment and Plan (1) Seminoma of descended right testis Overview: 73 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 Preoperative beta HCG 7.67, AFP 1.[address] scan showed enlarging aortocaval lymph nodes highly suspicious for involvement of seminoma. His disease staging was pT3 cN1 (stage IIA). Assessment: I reviewed all the lab tests with the patient. His serum Cr has normalized with hydration. Clinically, he has felt a lot better. Plan: 1. Ok to proceed to cycle 2 BEP 2. NS 1000 cc iv daily x 5 days 3. Weekly CBC, CMP 4. RTC on 05/29/2019 for C3# BEP 5. Instructed him to call for any concerns or questions.
[2019-05-22 08:58] LABS: Add Manual Diff / Slide Review YES; Hematocrit 26.5 % (41-53); Hemoglobin 9.3 g/dL (13.5-17.5); Mean Corpuscular Hemoglobin 31.4 PG (26-34); Mean Corpuscular Volume 89.8 fL (80-100); Platelet Count 598 X10^3/uL (150-400); Red Blood Cell Count 2.95 X10^6/uL (4.5-5.9); Red Cell Distribution Width 13.5 % (11.6-14.8); White Blood Cell Count 13.1 X10^3/uL (4.5-11.0)
[2019-05-22 09:01] LABS: Alanine Aminotransferase 25 IU/L (<50); Albumin Globulin Ratio 1.3 (1.0-2.8); Alkaline Phosphatase 79 U/L (38-126); Aspartate Aminotransferase 29 IU/L (17-59); Bilirubin Total 0.2 mg/dL (0.2-1.3); Blood Urea Nitrogen 12 mg/dL (9-20); Calcium 8.4 mg/dL (8.4-10.2); Carbon Dioxide 30 mmol/L (22-32); Chloride 104 mmol/L (98-107); Estimated Glomerular Filt Rate 59.3 mL/min (>60); Globulin 2.3 g/dL (1.7-4.1); Glucose 96 mg/dL (80-110); HEMOLYSIS < 15 (0-50); Potassium 3.8 mmol/L (3.4-5.1); Sodium 138 mmol/L (137-145); Total Protein 5.3 g/dL (6.3-8.2)
[2019-05-22 09:02] LABS: Lactate Dehydrogenase 635 U/L (313-618)
[2019-05-22 09:14] LABS: Neutrophils Absolute Manual 9563 /uL (3000-5900); RBC Morphology Normal Morphology; Total Cells Counted 100
[2019-05-22 09:18] LABS: HCG Quantitative /Beta subunit < 2.39 mIU/mL (-2.40)
[2019-05-22] MEDS: SODIUM CHLORIDE 0.9% 1,000 ML 500 ML IV (09:40)
[2019-05-22] MEDS: diphenhydrAMINE 25 MG TABLET PO (09:41)
[2019-05-22] MEDS: LORazepam 0.5 MG TABLET PO (09:41)
[2019-05-22] MEDS: ONDANSETRON 16 MG in SODIUM CHLORIDE 0.9% 50 ML 232 ML IV (10:26)
[2019-05-22] MEDS: FOSAPREPITANT 150 MG in SODIUM CHLORIDE 0.9% 150 ML 300 ML IV (10:48)
[2019-05-22] MEDS: CISPLATIN IV (11:35)
[2019-05-22] MEDS: MANNITOL IV (11:35)
[2019-05-22] MEDS: MAGNESIUM SULFATE IV (11:35)
[2019-05-22] MEDS: [UNRECOGNIZED DRUG - OTHER] IV (11:35)
[2019-05-22] MEDS: ETOPOSIDE 200 MG in NORMAL SALINE (CHEMO IV) 500ML 500 ML 510 ML IV (12:48)
[2019-05-22] MEDS: BLEOMYCIN IV (14:08)
[2019-05-22] MEDS: SODIUM CHLORIDE 0.9% IV (14:08)
[2019-05-23 09:00] VITALS: BP 106/60; PULSE 75; RESP 16; TEMP 36.3; O2SAT 98
[2019-05-23] MEDS: SODIUM CHLORIDE 0.9% 1,000 ML 500 ML IV (09:25)
[2019-05-23] MEDS: LORazepam 0.5 MG TABLET PO (09:26)
[2019-05-23] MEDS: ONDANSETRON 16 MG in SODIUM CHLORIDE 0.9% 50 ML 232 ML IV (10:09)
[2019-05-23] MEDS: MAGNESIUM SULFATE IV (11:04)
[2019-05-23] MEDS: CISPLATIN IV (11:04)
[2019-05-23] MEDS: MANNITOL IV (11:04)
[2019-05-23] MEDS: [UNRECOGNIZED DRUG - OTHER] IV (11:04)
[2019-05-23] MEDS: ETOPOSIDE 200 MG in NORMAL SALINE (CHEMO IV) 500ML 500 ML 510 ML IV (12:19)
[2019-05-24 08:37] VITALS: BP 126/68; PULSE 66; RESP 16; TEMP 35.8; O2SAT 100
[2019-05-24 08:40] VITALS: TEMP 36.3
[2019-05-24] MEDS: LORazepam 0.5 MG TABLET PO (08:49)
[2019-05-24] MEDS: SODIUM CHLORIDE 0.9% 1,000 ML 500 ML IV (08:50)
[2019-05-24] MEDS: ONDANSETRON 16 MG in SODIUM CHLORIDE 0.9% 50 ML 232 ML IV (09:34)
[2019-05-24] MEDS: MANNITOL IV (10:26)
[2019-05-24] MEDS: [UNRECOGNIZED DRUG - OTHER] IV (10:26)
[2019-05-24] MEDS: MAGNESIUM SULFATE IV (10:26)
[2019-05-24] MEDS: CISPLATIN IV (10:26)
[2019-05-24] MEDS: ETOPOSIDE 200 MG in NORMAL SALINE (CHEMO IV) 500ML 500 ML 510 ML IV (11:34)
[2019-05-25 09:02] VITALS: BP 139/63; PULSE 60; RESP 16; O2SAT 97
[2019-05-25 09:06] VITALS: TEMP 36.5
[2019-05-25 09:30] LABS: Add Manual Diff / Slide Review NO; Basophils Absolute Auto 0 /uL (0-100); Basophils Percent Auto 0.1 % (0-2); Eosinophils Absolute Auto 0 /uL (0-450); Hematocrit 25.2 % (41-53); Hemoglobin 8.8 g/dL (13.5-17.5); Lymphocytes Absolute Auto 500 /uL (1100-4500); Mean Corpuscular HGB Conc 34.9 % (30-36); Mean Corpuscular Hemoglobin 31.8 PG (26-34); Mean Corpuscular Volume 91.1 fL (80-100); Monocytes Absolute Auto 200 /uL (0-900); Monocytes Percent Auto 2.1 % (3-14); Neutrophils Absolute Auto 9200 /uL (1500-7000); Neutrophils Percent Auto 92.8 % (50-75); Platelet Count 645 X10^3/uL (150-400); Red Blood Cell Count 2.76 X10^6/uL (4.5-5.9); Red Cell Distribution Width 14.1 % (11.6-14.8); White Blood Cell Count 9.9 X10^3/uL (4.5-11.0)
[2019-05-25 09:45] LABS: Alanine Aminotransferase 20 IU/L (<50); Albumin 2.8 g/dL (3.5-5.0); Albumin Globulin Ratio 1.3 (1.0-2.8); Alkaline Phosphatase 70 U/L (38-126); Aspartate Aminotransferase 26 IU/L (17-59); BUN Creatinine Ratio 22.3 (6-22); Bilirubin Total 0.2 mg/dL (0.2-1.3); Blood Urea Nitrogen 29 mg/dL (9-20); Calcium 8.3 mg/dL (8.4-10.2); Carbon Dioxide 23 mmol/L (22-32); Chloride 104 mmol/L (98-107); Estimated Glomerular Filt Rate 54.1 mL/min (>60); Globulin 2.1 g/dL (1.7-4.1); Glucose 98 mg/dL (80-110); HEMOLYSIS < 15 (0-50); Potassium 4.8 mmol/L (3.4-5.1); Sodium 133 mmol/L (137-145); Total Protein 4.9 g/dL (6.3-8.2)
[2019-05-25] MEDS: SODIUM CHLORIDE 0.9% 1,000 ML 500 ML IV (10:37)
[2019-05-25] MEDS: LORazepam 0.5 MG TABLET PO (10:40)
[2019-05-25] MEDS: ONDANSETRON 16 MG in SODIUM CHLORIDE 0.9% 50 ML 232 ML IV (10:54)
[2019-05-25] MEDS: MAGNESIUM SULFATE IV (12:27)
[2019-05-25] MEDS: MANNITOL IV (12:27)
[2019-05-25] MEDS: [UNRECOGNIZED DRUG - OTHER] IV (12:27)
[2019-05-25] MEDS: CISPLATIN IV (12:27)
[2019-05-25] MEDS: ETOPOSIDE IV (14:21)
[2019-05-25] MEDS: NORMAL SALINE IV (14:21)
[2019-05-26 09:04] LABS: Alanine Aminotransferase 19 IU/L (<50); Albumin 2.7 g/dL (3.5-5.0); Albumin Globulin Ratio 1.2 (1.0-2.8); Alkaline Phosphatase 66 U/L (38-126); Aspartate Aminotransferase 27 IU/L (17-59); BUN Creatinine Ratio 21.5 (6-22); Bilirubin Total 0.3 mg/dL (0.2-1.3); Blood Urea Nitrogen 28 mg/dL (9-20); Calcium 8.2 mg/dL (8.4-10.2); Carbon Dioxide 24 mmol/L (22-32); Chloride 104 mmol/L (98-107); Estimated Glomerular Filt Rate 54.1 mL/min (>60); Globulin 2.2 g/dL (1.7-4.1); Glucose 93 mg/dL (80-110); HEMOLYSIS < 15 (0-50); Potassium 4.7 mmol/L (3.4-5.1); Sodium 134 mmol/L (137-145); Total Protein 4.9 g/dL (6.3-8.2)
[2019-05-26 09:17] VITALS: BP 125/67; PULSE 59; RESP 16
--- NOTE | 2019-05-26 09:20 | PC.NURSE ---
Addendum entered by Zuly Montano R.N. 05/26/19 10:51: cisplatin and etoposide doses checked. NS order changed from 1000ml to 500ml. Original Note: creatinine 1.3 this morning. LLE edema increased compared to yesterday. 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 waiting to hear back.
[2019-05-26] MEDS: SODIUM CHLORIDE 0.9% 500 ML 1000 ML IV (10:27)
[2019-05-26] MEDS: ONDANSETRON 16 MG in SODIUM CHLORIDE 0.9% 50 ML 232 ML IV (10:49)
[2019-05-26] MEDS: LORazepam 0.5 MG TABLET PO (11:00)
--- NOTE | 2019-05-26 11:13 | PC.NURSE ---
prescription: Dr. Fox stated pt should have lasix prescription. Med not on pt's med list or ambulatory orders. pt given paper prescription for furosemide 40mg PO x 3days per T.O Dr. Fox.
[2019-05-26] MEDS: CISPLATIN IV (11:34)
[2019-05-26] MEDS: [UNRECOGNIZED DRUG - OTHER] IV (11:34)
[2019-05-26] MEDS: MAGNESIUM SULFATE IV (11:34)
[2019-05-26] MEDS: MANNITOL IV (11:34)
[2019-05-26] MEDS: ETOPOSIDE IV (13:08)
[2019-05-26] MEDS: NORMAL SALINE IV (13:08)
[2019-05-26] MEDS: FUROSEMIDE 20 MG/2 ML VIAL IV (14:16)
[2019-05-29 08:49] LABS: Add Manual Diff / Slide Review NO; Basophils Absolute Auto 0 /uL (0-100); Basophils Percent Auto 0.3 % (0-2); Eosinophils Absolute Auto 0 /uL (0-450); Eosinophils Percent Auto 0.2 % (2-4); Hematocrit 28.9 % (41-53); Hemoglobin 9.9 g/dL (13.5-17.5); Lymphocytes Absolute Auto 500 /uL (1100-4500); Lymphocytes Percent Auto 9.2 % (25-40); Mean Corpuscular HGB Conc 34.2 % (30-36); Mean Corpuscular Hemoglobin 30.9 PG (26-34); Mean Corpuscular Volume 90.4 fL (80-100); Monocytes Absolute Auto 0 /uL (0-900); Monocytes Percent Auto 0.3 % (3-14); Neutrophils Absolute Auto 4800 /uL (1500-7000); Platelet Count 477 X10^3/uL (150-400); Red Cell Distribution Width 13.3 % (11.6-14.8); White Blood Cell Count 5.4 X10^3/uL (4.5-11.0)
[2019-05-29 08:51] VITALS: BP 121/61; PULSE 69; RESP 16; TEMP 35.5; O2SAT 96
[2019-05-29 09:27] LABS: Alanine Aminotransferase 17 IU/L (<50); Albumin Globulin Ratio 1.3 (1.0-2.8); Alkaline Phosphatase 67 U/L (38-126); Aspartate Aminotransferase 28 IU/L (17-59); BUN Creatinine Ratio 18.3 (6-22); Bilirubin Total 0.3 mg/dL (0.2-1.3); Blood Urea Nitrogen 22 mg/dL (9-20); Calcium 8.1 mg/dL (8.4-10.2); Carbon Dioxide 32 mmol/L (22-32); Chloride 93 mmol/L (98-107); Estimated Glomerular Filt Rate 59.3 mL/min (>60); Globulin 2.4 g/dL (1.7-4.1); Glucose 118 mg/dL (80-110); HEMOLYSIS < 15 (0-50); Potassium 3.3 mmol/L (3.4-5.1); Sodium 133 mmol/L (137-145); Total Protein 5.4 g/dL (6.3-8.2)
--- NOTE | 2019-05-29 09:50 | P.PNONC_ITS ---
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 He himself first noticed a painless bump in his right testicle one week before seeing Dr. Aaron Mesa a [facility]. On 01/20/2019, scrotal ultrasound a heterogeneous echogenicity shrunken appearing testis on the right measuring up to 3.2 cm, large right scrotal hydrocele, lobular mass in the right scrotum measuing up to 5.4 cm with heterogenous internal echogenicity. On 01/25/2019, he underwent CT abdomen and pelvis that showed an irregular right scrotal mass with large right hydrocele, interval single 1 cm short axis precaval lymph node, but no other adenopathy or solid visceral metastasis. Mild hepatic steatosis noted. a 1 cm hypodensity in segment 4a of the liver compatible with cyst or hemangioma, and incidental findings of severe atherosclerosis and mild colonic diverticulosis. On 02/13/2019 labs showed AFP 1.8 ng/mL (ref: < 6.1), LDH 220, HCG 7.67 mIU/mL (ref: 0-3.1) CXR on 02/13/2019 showed no acute cardiopulmonary abnormality. Feb 23, 2019, De Mckeon performed inguinal radical right orchiectomy. he final pathology showed seminoma, 7.2 x 5.5 x 3.8 cm, unifocal, tumor invading the tunica albuginea and tunica vaginitis, tumor invading the epididymis, tumor invading spermatic cord, all margins negative, lymphovascular invasion negative, no lymph node identified, and the pathological staging was pT3 pNx. He underwent CT CAP on 03/21/2019. The scan showed enlarging aortocaval lymph node highly suspicious for metastatic disease, small fluid collection in the right inguinal canal with rim enhancement, and no metastatic disease in the chest. TUMOR BOARD discussion deemed that the aortocaval lymph node is highly suspicious for metastasis. Adjuvant chemotherapy is recommended. He was started on BEP on 04/16/2019 Interim Events: He presents here today for cycle 2 day 8 bleomycin. Over the past 3 days, patient has been taking Lasix 40 mg once a day lower extremity swelling. Patient said that the swelling the lower extremities has improved. However he noticed that the left leg is still significantly swelling. He denies any shortness of breath. He denies any chest pain. No other new events. - Patient Self-Reported Symptoms SR respiratory issues: Cough - Additional ROS All systems PM: reviewed and no additional remarkable complaints except as stated Home Medications and Allergies Home Medications Medication Instructions Recorded Confirmed Type acetaminophen [Tylenol Extra 1,000 mg PO QAM 03/20/19 05/25/19 History Strength] diphenhydramine-acetaminophen 2 tab PO BEDTIME PRN 03/20/19 05/25/19 History [Tylenol PM Extra Strength] levothyroxine [Synthroid] 150 mcg PO DAILY 03/20/19 05/15/19 History loratadine 10 mg PO DAILY 03/20/19 05/15/19 History multivitamin 1 cap PO DAILY 03/20/19 05/15/19 History vitamin B complex 1 tab PO DAILY 03/20/19 05/15/19 History atorvastatin 40 mg PO DAILY 04/20/19 05/15/19 History ondansetron HCl [Zofran] 4 mg PO Q6H 60 Days #240 tab 05/01/19 05/15/19 Rx Adult Low Dose Aspirin 328 mg PO QAM 05/25/19 05/25/19 History metoprolol succinate 1 tab QAM 05/25/19 05/25/19 History potassium chloride 20 meq PO DAILY #7 ea 05/29/19 Rx Allergies Allergy/AdvReac Type Severity Reaction Status Date / Time No Known Drug Allergies Allergy Verified 05/15/19 10:01 Exam Vital signs: Last Vital Signs Temp 96 F L 05/29/19 08:51 Pulse 69 05/29/19 08:51 Resp 16 05/29/19 08:51 BP 121/61 05/29/19 08:51 Pulse Ox 96 05/29/19 08:51 ECOG 1 Narrative: Gen: WDWN, NAD, pleasant and cooperative. HEENT: NCAT, EOMI, PERRLA, anicteric sclera. Neck: Supple, No palpable thyromegaly or lymphadenopathy. Respiratory: CTAB, no wheezes audible. No JVD Cardiovascular: RRR, S1 and S2 normal, no M/G/R. Abdomen: Soft, NTND, BS normal, no palpable organomegaly Extremities: 2+ pitting edema of his left lower leg; 0-1+ on the right side. Lymphatic: no palpable lymph nodes in the neck, axillae, or groins. Neurological: AOx3, CN II-XII grossly intact. No focal motor or sensory deficit. Psychiatric: Good judgment and insight; normal affect; normal thought process; cooperative, no depression, no anxiety. Results - Labs Laboratory Last Values WBC 5.4 X10^3/uL (4.5-11.0) 05/29/19 08:40 RBC 3.20 X10^6/uL (4.5-5.9) L 05/29/19 08:40 Hgb 9.9 g/dL (13.5-17.5) L 05/29/19 08:40 Hct 28.9 % (41-53) L 05/29/19 08:40 MCV 90.4 fL (80-100) 05/29/19 08:40 MCH 30.9 PG (26-34) 05/29/19 08:40 MCHC 34.2 % (30-36) 05/29/19 08:40 RDW 13.3 % (11.6-14.8) 05/29/19 08:40 Plt Count 477 X10^3/uL (150-400) H 05/29/19 08:40 Neut % (Auto) 90.0 % (50-75) H 05/29/19 08:40 Lymph % (Auto) 9.2 % (25-40) L 05/29/19 08:40 [place] % (Auto) 0.3 % (3-14) L 05/29/19 08:40 Eos % (Auto) 0.2 % (2-4) L 05/29/19 08:40 Baso % (Auto) 0.3 % (0-2) 05/29/19 08:40 Neut # (Auto) 4800 /uL (9797-1587) 05/29/19 08:40 Lymph # (Auto) 500 /uL (9602-2703) L 05/29/19 08:40 [place] # (Auto) 0 /uL (0-900) 05/29/19 08:40 Eos # (Auto) 0 /uL (0-450) 05/29/19 08:40 Baso # (Auto) 0 /uL (0-100) 05/29/19 08:40 Total Counted 100 05/22/19 08:40 Seg Neutrophils % 68.0 % (38-70) 05/22/19 08:40 Band Neutrophils % 5.0 % (3-7) 05/22/19 08:40 Lymphocytes % (Manual) 9.0 % (25-45) L 05/22/19 08:40 Atypical Lymphs % 4.0 % (-0) H 05/22/19 08:40 Monocytes % (Manual) 12.0 % (2-11) H 05/22/19 08:40 Basophils % (Manual) 1.0 % (0-1) 05/22/19 08:40 Metamyelocytes % 1.0 % (-0) H 05/22/19 08:40 Neutrophils # (Manual) 9563 /uL (1469-0269) H 05/22/19 08:40 RBC Morphology Normal morphology 05/22/19 08:40 [place] Cells 2+ H 05/15/19 08:55 Sodium 133 mmol/L (137-145) L 05/29/19 08:40 Potassium 3.3 mmol/L (3.4-5.1) L D 05/29/19 08:40 Chloride 93 mmol/L (98-107) L 05/29/19 08:40 Carbon Dioxide 32 mmol/L (22-32) 05/29/19 08:40 BUN 22 mg/dL (9-20) H 05/29/19 08:40 Creatinine 1.20 mg/dL (0.66-1.25) 05/29/19 08:40 Estimated GFR 59.3 mL/min (>60) L 05/29/19 08:40 BUN/Creatinine Ratio 18.3 (6-22) 05/29/19 08:40 Glucose 118 mg/dL (80-110) H 05/29/19 08:40 Calcium 8.1 mg/dL (8.4-10.2) L 05/29/19 08:40 Magnesium 2.0 mg/dL (1.6-2.3) 05/25/19 09:15 Total Bilirubin 0.3 mg/dL (0.2-1.3) 05/29/19 08:40 AST 28 IU/L (17-59) 05/29/19 08:40 ALT 17 IU/L (<50) 05/29/19 08:40 Alkaline Phosphatase 67 U/L (38-126) 05/29/19 08:40 Lactate Dehydrogenase 635 U/L (313-618) H 05/22/19 08:40 Total Protein 5.4 g/dL (6.3-8.2) L 05/29/19 08:40 Albumin 3.0 g/dL (3.5-5.0) L 05/29/19 08:40 Globulin 2.4 g/dL (1.7-4.1) 05/29/19 08:40 Albumin/Globulin Ratio 1.3 (1.0-2.8) 05/29/19 08:40 Alpha Fetoprotein 3.0 ng/mL (< 6.1) 05/22/19 08:40 HCG, Quant < 2.39 mIU/mL (-2.40) 05/22/19 08:40 Assessment and Plan (1) Seminoma of descended right testis Overview: 73 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 Preoperative beta HCG 7.67, AFP 1.[address] Post[address] CT scan showed enlarging aortocaval lymph nodes highly suspicious for involvement of seminoma. His disease staging was pT3 cN1 (stage IIA). Assessment: I reviewed the lab tests with the patient. The serum creatinine level has improved to 1.2. However patient has significant left-sided lower extremity edema. I talked with him that I would obtain a stat Doppler study to evaluate possible deep venous thrombosis. Plan: 1. Ok to proceed to cycle 2 day 8 Bleomycin 2. Left leg Doppler to evaluate possible DVT 3. RTC on 06/05/2019 for C2 day 15 Bleomycin, CBC, CMP 4. Instructed him to call for any concerns or questions.
[2019-05-29] MEDS: POTASSIUM CHLORIDE 10 MEQ in SODIUM CHLORIDE 0.9% 100 ML 105 ML IV (11:08)
[2019-05-29] MEDS: SODIUM CHLORIDE 0.9% 100 ML 30 ML IV (11:10)
--- NOTE | 2019-05-29 12:44 | PC.NURSE ---
DVT NEGATIVE: Call received from [facility] stating ultrasound negative for DVT.
--- NOTE | 2019-05-29 13:35 | PC.NURSE ---
[facility] RX FAXED IN TO [facility]
[2019-05-29] MEDS: diphenhydrAMINE 25 MG TABLET PO (13:59)
[2019-05-29] MEDS: ACETAMINOPHEN 325 MG TABLET 650 MG PO (13:59)
[2019-05-29] MEDS: DEXAMETHASONE 10 MG/ML VIAL 8 MG IV (14:00)
[2019-05-29] MEDS: ONDANSETRON 8 MG in SODIUM CHLORIDE 0.9% 50 ML 216 ML IV (14:03)
[2019-05-29] MEDS: SODIUM CHLORIDE 0.9% IV (14:28)
[2019-05-29] MEDS: BLEOMYCIN IV (14:28)
--- NOTE | 2019-05-31 16:29 | PC.NURSE ---
CHECKUP DAY 10 OF CYCLE: PER TELEPHONE PATIENT STATES TO BE DOING WELL, EATING AND DRINKING AND ELIMINATING WELL. HE HAS HEAT AND ENOUGH FOOD TO GET THROUGH THE SNOWSTORM. HE WILL BE IN ON 06/05 FOR FU AND BLEO.
[2019-06-05 09:01] LABS: Hematocrit 24.1 % (41-53); Hemoglobin 8.6 g/dL (13.5-17.5); Mean Corpuscular HGB Conc 35.8 % (30-36); Mean Corpuscular Hemoglobin 31.3 PG (26-34); Mean Corpuscular Volume 87.4 fL (80-100); Platelet Count 117 X10^3/uL (150-400); Red Blood Cell Count 2.75 X10^6/uL (4.5-5.9); Red Cell Distribution Width 12.7 % (11.6-14.8)
[2019-06-05 09:05] LABS: White Blood Cell Count 0.8 X10^3/uL (4.5-11.0)
[2019-06-05 09:06] LABS: Add Manual Diff / Slide Review YES
[2019-06-05] MEDS: SODIUM CHLORIDE 0.9% 1,000 ML 1000 ML IV (09:10)
[2019-06-05 09:18] LABS: Alanine Aminotransferase 15 IU/L (<50); Albumin 2.9 g/dL (3.5-5.0); Alkaline Phosphatase 81 U/L (38-126); Aspartate Aminotransferase 23 IU/L (17-59); Bilirubin Total 0.3 mg/dL (0.2-1.3); Blood Urea Nitrogen 15 mg/dL (9-20); Calcium 7.6 mg/dL (8.4-10.2); Carbon Dioxide 27 mmol/L (22-32); Chloride 95 mmol/L (98-107); Estimated Glomerular Filt Rate > 60.0 mL/min (>60); Globulin 2.8 g/dL (1.7-4.1); Glucose 117 mg/dL (80-110); HEMOLYSIS < 15 (0-50); Sodium 129 mmol/L (137-145); Total Protein 5.7 g/dL (6.3-8.2)
[2019-06-05 09:20] VITALS: BP 92/51; PULSE 92; RESP 16; TEMP 36.9; O2SAT 97
--- NOTE | 2019-06-05 09:23 | PC.NURSE ---
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 Pt unable to eat or drink in last 48 hours, and had no appetite. Pt also reported having loose stool the last 48 hours. Pt BP 84/56, notified of all symptoms and 1L NS bolus ordered.
[2019-06-05 09:26] LABS: Potassium 2.8 mmol/L (3.4-5.1)
[2019-06-05 09:43] VITALS: BP 98/53; PULSE 72
[2019-06-05 09:44] LABS: Neutrophils Absolute Manual 96 /uL (3000-5900); Polychromasia 1+; Total Cells Counted 50
[2019-06-05] MEDS: POTASSIUM CHLORIDE 20 MEQ in SODIUM CHLORIDE 0.9% 250 ML 130 ML IV (10:16)
[2019-06-05] MEDS: SODIUM CHLORIDE 0.9% 50 ML 1000 ML IV ×2 (10:20→14:00)
[2019-06-05] MEDS: levoFLOXacin 500 MG/100 ML PIGGYBACK 100 MG IV (12:37)
[2019-06-05] MEDS: MAGNESIUM SULFATE 4 GM/100 ML PIGGYBACK IV (13:57)
[2019-06-05 15:28] VITALS: BP 100/58; PULSE 75; RESP 16; O2SAT 98
--- NOTE | 2019-06-05 15:28 | PC.NURSE ---
ATIVAN RX GIVEN TO PATIENT TO USE FOR N/V AND WAS INFORMED TO COAT MAKER COMPAZINE TO ALSO HELP WITH N/V. HE WAS INFORMED TO TRY COMPAZINE PRESCRIBED FIRST AND TO ADD ATIVAN IF NEEDING MORE RELIEF. HE WAS ADVISED THAT ATIVAN CAN MAKE HIM DROWSY SO BETTER TO START WITH A DOSE BEFORE BEDTIME. ALSO INFORMED HIM TO COAT MAKER THE RX FOR LEVAQUIN TO TAKE PROPHYLACTICALLY FOR LOW WBC FOR 10 DAYS DAILY. ALL PRESCRIPTIONS CALLED TO [facility]. HE WAS ENCOURAGED TO CALL IN AND SPEAK WITH TRIAGE IF ANY CONCERNS OR QUESTIONS AND TO CONTINUE DRINKING PLENTY OF FLUIDS. PATIENT KNOWS TO COME TOMORROW FOR LABS TO MONITOR HE RECEIVED 3L NS TODAY WELL K+ AND MG RIDERS.
[2019-06-05 16:22] VITALS: BP 125/76; PULSE 79; RESP 15; O2SAT 95
[2019-06-06 09:57] VITALS: BP 107/61; PULSE 103; RESP 18; TEMP 36.4; O2SAT 98
--- NOTE | 2019-06-06 09:57 | PC.NURSE ---
Pt states, I feel better, still shaky and weak though. arrived via wheel chair.
[2019-06-06 10:08] LABS: Hematocrit 24.1 % (41-53); Hemoglobin 8.6 g/dL (13.5-17.5); Mean Corpuscular HGB Conc 35.8 % (30-36); Mean Corpuscular Hemoglobin 31.5 PG (26-34); Platelet Count 164 X10^3/uL (150-400); Red Blood Cell Count 2.74 X10^6/uL (4.5-5.9)
[2019-06-06 10:09] LABS: Add Manual Diff / Slide Review YES; White Blood Cell Count 1.7 X10^3/uL (4.5-11.0)
[2019-06-06 10:18] LABS: Alanine Aminotransferase 15 IU/L (<50); Albumin 2.8 g/dL (3.5-5.0); Albumin Globulin Ratio 1.1 (1.0-2.8); Alkaline Phosphatase 85 U/L (38-126); Aspartate Aminotransferase 23 IU/L (17-59); Bilirubin Total 0.2 mg/dL (0.2-1.3); Blood Urea Nitrogen 10 mg/dL (9-20); Carbon Dioxide 25 mmol/L (22-32); Chloride 101 mmol/L (98-107); Estimated Glomerular Filt Rate > 60.0 mL/min (>60); Globulin 2.6 g/dL (1.7-4.1); Glucose 100 mg/dL (80-110); HEMOLYSIS < 15 (0-50); Magnesium 1.6 mg/dL (1.6-2.3); Potassium 3.1 mmol/L (3.4-5.1); Sodium 134 mmol/L (137-145); Total Protein 5.4 g/dL (6.3-8.2)
[2019-06-06 10:35] LABS: Anisocytosis 2+; Neutrophils Absolute Manual 374 /uL (3000-5900); Total Cells Counted 50
[2019-06-06] MEDS: POTASSIUM CHLORIDE 20 MEQ in SODIUM CHLORIDE 0.9% 250 ML 130 ML IV (11:28)
[2019-06-06] MEDS: SODIUM CHLORIDE 0.9% 50 ML 1000 ML IV (11:30)
[2019-06-06] MEDS: MAGNESIUM SULFATE 1 GM in DEXTROSE 5 % IN WATER 100 ML 102 ML IV (12:54)
[2019-06-12 09:24] VITALS: BP 113/62; PULSE 77; RESP 18; TEMP 36.3; O2SAT 96
[2019-06-12 09:24] LABS: Hemoglobin 8.8 g/dL (13.5-17.5); Mean Corpuscular HGB Conc 34.1 % (30-36); Mean Corpuscular Hemoglobin 30.4 PG (26-34); Mean Corpuscular Volume 89.2 fL (80-100); Platelet Count 599 X10^3/uL (150-400); Red Blood Cell Count 2.91 X10^6/uL (4.5-5.9); Red Cell Distribution Width 13.6 % (11.6-14.8); White Blood Cell Count 12.9 X10^3/uL (4.5-11.0)
[2019-06-12 09:25] LABS: Add Manual Diff / Slide Review YES
[2019-06-12 09:35] LABS: Alanine Aminotransferase 14 IU/L (<50); Albumin 2.8 g/dL (3.5-5.0); Albumin Globulin Ratio 0.9 (1.0-2.8); Alkaline Phosphatase 104 U/L (38-126); Aspartate Aminotransferase 45 IU/L (17-59); Bilirubin Total 0.2 mg/dL (0.2-1.3); Blood Urea Nitrogen 13 mg/dL (9-20); Calcium 8.3 mg/dL (8.4-10.2); Carbon Dioxide 29 mmol/L (22-32); Chloride 100 mmol/L (98-107); Estimated Glomerular Filt Rate > 60.0 mL/min (>60); Globulin 3.2 g/dL (1.7-4.1); Glucose 114 mg/dL (80-110); HEMOLYSIS < 15 (0-50); Potassium 3.3 mmol/L (3.4-5.1); Sodium 136 mmol/L (137-145)
[2019-06-12 09:57] LABS: Neutrophils Absolute Manual 8385 /uL (3000-5900); Total Cells Counted 100
[2019-06-12 09:59] LABS: Anisocytosis 2+; Platelet Estimate Increased on smear; Polychromasia 1+
[2019-06-12] MEDS: SODIUM CHLORIDE 0.9% 1,000 ML 500 ML IV (10:21)
[2019-06-12] MEDS: diphenhydrAMINE 25 MG TABLET PO (11:08)
[2019-06-12] MEDS: ACETAMINOPHEN 325 MG TABLET 650 MG PO (11:09)
[2019-06-12] MEDS: LORazepam 0.5 MG TABLET PO (11:10)
[2019-06-12] MEDS: FOSAPREPITANT 150 MG in SODIUM CHLORIDE 0.9% 150 ML 300 ML IV (12:07)
[2019-06-12] MEDS: ONDANSETRON 16 MG in SODIUM CHLORIDE 0.9% 50 ML 232 ML IV (12:26)
--- NOTE | 2019-06-12 13:11 | P.PNONC_ITS ---
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 He himself first noticed a painless bump in his right testicle one week before seeing Dr. Aaron Mesa a [facility]. On 01/20/2019, scrotal ultrasound a heterogeneous echogenicity shrunken appearing testis on the right measuring up to 3.2 cm, large right scrotal hydrocele, lobular mass in the right scrotum measuing up to 5.4 cm with heterogenous internal echogenicity. On 01/25/2019, he underwent CT abdomen and pelvis that showed an irregular right scrotal mass with large right hydrocele, interval single 1 cm short axis precaval lymph node, but no other adenopathy or solid visceral metastasis. Mild hepatic steatosis noted. a 1 cm hypodensity in segment 4a of the liver compatible with cyst or hemangioma, and incidental findings of severe atherosclerosis and mild colonic diverticulosis. On 02/13/2019 labs showed AFP 1.8 ng/mL (ref: < 6.1), LDH 220, HCG 7.67 mIU/mL (ref: 0-3.1) CXR on 02/13/2019 showed no acute cardiopulmonary abnormality. Feb 23, 2019, De Mckeon performed inguinal radical right orchiectomy. he final pathology showed seminoma, 7.2 x 5.5 x 3.8 cm, unifocal, tumor invading the tunica albuginea and tunica vaginitis, tumor invading the epididymis, tumor invading spermatic cord, all margins negative, lymphovascular invasion negative, no lymph node identified, and the pathological staging was pT3 pNx. He underwent CT CAP on 03/21/2019. The scan showed enlarging aortocaval lymph node highly suspicious for metastatic disease, small fluid collection in the right inguinal canal with rim enhancement, and no metastatic disease in the chest. TUMOR BOARD discussion deemed that the aortocaval lymph node is highly suspicious for metastasis. Adjuvant chemotherapy is recommended. He was started on BEP on 04/16/2019 Interim Events: Patient presents here today for resuming chemotherapy cycle 3# BEP. He is complaining fatigue. He denies fever or chills. He is having some nausea at home. He denies any shortness of breath or chest pain. Denies abdominal pain diarrhea or constipation. - Patient Self-Reported Symptoms SR respiratory issues: Cough - Additional ROS All systems PM: reviewed and no additional remarkable complaints except as stated Home Medications and Allergies Home Medications Medication Instructions Recorded Confirmed Type acetaminophen [Tylenol Extra 1,000 mg PO QAM 03/20/19 06/12/19 History Strength] diphenhydramine-acetaminophen 2 tab PO BEDTIME PRN 03/20/19 06/12/19 History [Tylenol PM Extra Strength] levothyroxine [Synthroid] 150 mcg PO DAILY 03/20/19 06/12/19 History loratadine 10 mg PO DAILY 03/20/19 06/12/19 History multivitamin 1 cap PO DAILY 03/20/19 06/12/19 History vitamin B complex 1 tab PO DAILY 03/20/19 06/12/19 History atorvastatin 40 mg PO DAILY 04/20/19 06/12/19 History ondansetron HCl [Zofran] 4 mg PO Q6H 60 Days #240 tab 05/01/19 06/12/19 Rx Adult Low Dose Aspirin 328 mg PO QAM 05/25/19 06/12/19 History metoprolol succinate 1 tab QAM 05/25/19 06/12/19 History potassium chloride 20 meq PO DAILY #7 ea 05/29/19 06/12/19 Rx levofloxacin [Levaquin] 500 mg PO DAILY 10 Days #10 tab 06/05/19 06/12/19 Rx lorazepam [Ativan] 0.5 mg PO Q6H PRN #60 tab 06/05/19 06/12/19 Rx prochlorperazine maleate 10 mg PO Q6H PRN #90 tab 06/05/19 06/12/19 Rx [Compazine] Allergies Allergy/AdvReac Type Severity Reaction Status Date / Time No Known Drug Allergies Allergy Verified 05/15/19 10:01 Exam Vital signs: Vital Signs Temp Pulse Resp BP Pulse Ox 06/12/19 09:24 97.4 F L 77 18 113/62 96 Intake and Output 06/11/19 06/12/19 06/12/19 23:59 07:59 15:59 Intake Total 261 / 261 Balance 261 / 261 Intake: IV 261 / 261 Fosaprepitant 150 mg In Sodium 150 / 150 Chloride 0.9% 150 ml @ 300 mls/ hr IV PRECHEM [facility] Rx#:[id number] Ondansetron 16 mg In Sodium 58 / 58 Chloride 0.9% 50 ml @ 232 mls/ hr IV PRECHEM [facility] Rx#:[id number] dexAMETHasone 12 mg In Sodium 53 / 53 Chloride 0.9% 50 ml @ 212 mls/ hr IV PRECHEM [facility] Rx#:[id number] Other: Weight 70.8 kg Patient Weight 06/12/19 23:59 Weight 70.8 kg Narrative: Gen: WDWN, NAD, pleasant and cooperative. HEENT: NCAT, EOMI, PERRLA, anicteric sclera. Neck: Supple, No palpable thyromegaly or lymphadenopathy. Respiratory: CTAB, no wheezes audible. No JVD Cardiovascular: RRR, S1 and S2 normal, no M/G/R. Abdomen: Soft, NTND, BS normal, no palpable organomegaly Extremities: no pitting edema of lowe extremities. Lymphatic: no palpable lymph nodes in the neck, axillae, or groins. Neurological: AOx3, CN II-XII grossly intact. No focal motor or sensory deficit. Psychiatric: Good judgment and insight; normal affect; normal thought process; cooperative, no depression, no anxiety. Results - Labs Laboratory Last Values WBC 12.9 X10^3/uL (4.5-11.0) H 06/12/19 09:15 RBC 2.91 X10^6/uL (4.5-5.9) L 06/12/19 09:15 Hgb 8.8 g/dL (13.5-17.5) L 06/12/19 09:15 Hct 26.0 % (41-53) L 06/12/19 09:15 MCV 89.2 fL (80-100) 06/12/19 09:15 MCH 30.4 PG (26-34) 06/12/19 09:15 MCHC 34.1 % (30-36) 06/12/19 09:15 RDW 13.6 % (11.6-14.8) 06/12/19 09:15 Plt Count 599 X10^3/uL (150-400) H 06/12/19 09:15 Neut % (Auto) Not Reportable 06/12/19 09:15 Lymph % (Auto) Not Reportable 06/12/19 09:15 [place] % (Auto) Not Reportable 06/12/19 09:15 Eos % (Auto) Not Reportable 06/12/19 09:15 Baso % (Auto) Not Reportable 06/12/19 09:15 Neut # (Auto) 4800 /uL (3500-6907) 05/29/19 08:40 Lymph # (Auto) Not Reportable 06/12/19 09:15 [place] # (Auto) Not Reportable 06/12/19 09:15 Eos # (Auto) 0 /uL (0-450) 05/29/19 08:40 Baso # (Auto) Not Reportable 06/12/19 09:15 Total Counted 100 06/12/19 09:15 Seg Neutrophils % 57.0 % (38-70) 06/12/19 09:15 Band Neutrophils % 8.0 % (3-7) H 06/12/19 09:15 Lymphocytes % (Manual) 10.0 % (25-45) L 06/12/19 09:15 Atypical Lymphs % 1.0 % (-0) H 06/12/19 09:15 Monocytes % (Manual) 19.0 % (2-11) H 06/12/19 09:15 Eosinophils % (Manual) 2.0 % (2-4) 06/06/19 10:00 Basophils % (Manual) 1.0 % (0-1) 05/22/19 08:40 Metamyelocytes % 2.0 % (-0) H 06/12/19 09:15 Myelocytes % 3.0 % (-0) H 06/12/19 09:15 Neutrophils # (Manual) 8385 /uL (7264-4125) H 06/12/19 09:15 Platelet Estimate Increased on smear 06/12/19 09:15 RBC Morphology See below 06/12/19 09:15 Polychromasia 1+ H 06/12/19 09:15 Anisocytosis 2+ H 06/12/19 09:15 [place] Cells 2+ H 05/15/19 08:55 Sodium 136 mmol/L (137-145) L 06/12/19 09:15 Potassium 3.3 mmol/L (3.4-5.1) L 06/12/19 09:15 Chloride 100 mmol/L (98-107) 06/12/19 09:15 Carbon Dioxide 29 mmol/L (22-32) 06/12/19 09:15 BUN 13 mg/dL (9-20) 06/12/19 09:15 Creatinine 1.00 mg/dL (0.66-1.25) 06/12/19 09:15 Estimated GFR > 60.0 mL/min (>60) 06/12/19 09:15 BUN/Creatinine Ratio 13.0 (6-22) 06/12/19 09:15 Glucose 114 mg/dL (80-110) H 06/12/19 09:15 Calcium 8.3 mg/dL (8.4-10.2) L 06/12/19 09:15 Magnesium 1.6 mg/dL (1.6-2.3) 06/06/19 10:00 Total Bilirubin 0.2 mg/dL (0.2-1.3) 06/12/19 09:15 AST 45 IU/L (17-59) 06/12/19 09:15 ALT 14 IU/L (<50) 06/12/19 09:15 Alkaline Phosphatase 104 U/L (38-126) 06/12/19 09:15 Lactate Dehydrogenase 635 U/L (313-618) H 05/22/19 08:40 Total Protein 6.0 g/dL (6.3-8.2) L 06/12/19 09:15 Albumin 2.8 g/dL (3.5-5.0) L 06/12/19 09:15 Globulin 3.2 g/dL (1.7-4.1) 06/12/19 09:15 Albumin/Globulin Ratio 0.9 (1.0-2.8) L 06/12/19 09:15 Alpha Fetoprotein 3.0 ng/mL (< 6.1) 05/22/19 08:40 HCG, Quant < 2.39 mIU/mL (-2.40) 05/22/19 08:40 Assessment and Plan (1) Seminoma of descended right testis Overview: 73 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 Preoperative beta HCG 7.67, AFP 1.[address] scan showed enlarging aortocaval lymph nodes highly suspicious for involvement of seminoma. His disease staging was pT3 cN1 (stage IIA). Assessment: I reviewed the lab tests with the patient. The serum creatinine level has improved to 1.0. No lower extremity swelling. I will proceed with scheduled chemotherapy cycle 3# BEP. I talked with the patient that for the next 3 weeks, I have scheduled him to come back every morning to our clinic to get the vitals checked. I will get lab check including CBC and CMP with magnesium on Wednesday and . We'll give fluids on an as needed basis. Patient voiced understanding. Plan: 1. Ok to proceed to cycle 3# BEP 2. RTC on 06/19/2019 for C3 day 8 Bleomycin, CBC, CMP 4. Instructed him to call for any concerns or questions.
[2019-06-12] MEDS: [UNRECOGNIZED DRUG - OTHER] IV (13:17)
[2019-06-12] MEDS: MAGNESIUM SULFATE IV (13:17)
[2019-06-12] MEDS: CISPLATIN IV (13:17)
[2019-06-12] MEDS: MANNITOL IV (13:17)
[2019-06-12] MEDS: NORMAL SALINE IV (14:38)
[2019-06-12] MEDS: ETOPOSIDE IV (14:38)
[2019-06-12] MEDS: SODIUM CHLORIDE 0.9% IV (15:50)
[2019-06-12] MEDS: BLEOMYCIN IV (15:50)
[2019-06-13 08:57] VITALS: BP 100/60; PULSE 85; RESP 18; TEMP 36.4; O2SAT 95
[2019-06-13 08:58] VITALS: BP 74/46; PULSE 113
[2019-06-13] MEDS: SODIUM CHLORIDE 0.9% 50 ML 1000 ML IV (09:15)
[2019-06-13 10:23] VITALS: BP 104/63; PULSE 80
[2019-06-13 10:24] VITALS: BP 103/52; PULSE 93
[2019-06-13] MEDS: LORazepam 0.5 MG TABLET PO (10:52)
[2019-06-13] MEDS: ONDANSETRON 16 MG in SODIUM CHLORIDE 0.9% 50 ML 232 ML IV (11:24)
--- NOTE | 2019-06-13 11:42 | PC.NURSE ---
Addendum entered by Cyndie Savage R.N. 06/13/19 12:12: BP PARAMETERS: FOLLOWING ORDER WRITTEN PER VO DR BROWN AND AMENDED BY PILAR OMER RN Original Note: RN VISITS/PARAMETERS//LABS: PER DR BROWN PATIENT SHOULD RETURN TO CLINIC EVERYDAY WE ARE OPEN THROUGH 06/29 FOR A NURSE VISIT. 1 L. NS SHOULD BE ADMINISTERED FOR AN ORTHOSTATIC BP DROP OF SYSTOLIC 15 OR MORE AND DIASTOLIC 10 OR MORE. IF NO ORTHOSTATIC DROP BUT BP LESS THAN 90/50 THEN GIVE 1 L. NS.
[2019-06-13] MEDS: SODIUM CHLORIDE 0.9% 1,000 ML 500 ML IV (12:00)
--- NOTE | 2019-06-13 12:23 | PC.NURSE ---
EXTRA LABS DURING CHEMO: PER DR. BROWN PATIENT TO HAVE CBC/CMP DRAWN MONDAYS AND THURSDAYS THROUGH 06/29, ORDERS ENTERED ON ORDERS PANEL EXCEPT FOR 06/29.
--- NOTE | 2019-06-13 12:32 | PC.NURSE ---
HYPOTENSION Upon arrival to clinic patient's seated BP was 100/60. Patient reported dizziness and shortness of breath while standing. Standing BP taken and was 74/46. Triage nurse Akil., RN and MD notified of symptoms. Ordered 1L NS bolus. After bolus seated BP 104/63, standing 103/52. Patient to return to clinic each day this week for director product safety and fluids as needed.
[2019-06-13 13:25] VITALS: BP 123/62; PULSE 91; O2SAT 94
--- NOTE | 2019-06-13 13:27 | PC.NURSE ---
O2 saturation dropped to 88%. Increased to 94% with deep breathing. MD notified, fine crackles heard on auscultation.
--- NOTE | 2019-06-13 13:32 | PC.NURSE ---
Addendum entered by Zuly Montano R.N. 06/13/19 13:36: Cisplatin on hold until after CT Original Note: pt taken to CT for STAT chest CT without contrast. O2 sat 84% and increases to 94% after several deep breaths. fine inspiratory crackles B/L bases. pt denies SOB or difficulty taking breath. reports wuzziness with standing. BP 129/69. Dr. Fox notified and assessed.
--- NOTE | 2019-06-13 14:29 | ONC.MSW ---
*Provided Last Chemo Card.
--- NOTE | 2019-06-13 15:52 | ONC.MSW ---
Description: Referral to Palliative Care Activity: Met with pt to discuss his questions re: in-home services. Discussed the Palliative Care Program available through [facility], due to his wanting something similiar to Home Health, but he doesn't need Home Health, and he's not ready/doesn't yet qualify for hospice. Discussed the goals of palliative care, which he felt matched his goals and needs at this time. [facility] [employer] faxed referral and clinicals to [facility].
[2019-06-14 09:05] VITALS: BP 113/61; PULSE 83; RESP 16; TEMP 36.4; O2SAT 88
[2019-06-14 09:10] VITALS: BP 100/56
[2019-06-14 09:11] VITALS: PULSE 70; RESP 16; O2SAT 95
--- NOTE | 2019-06-14 09:13 | PC.NURSE ---
Low O2 Sats and BP BP while seated was 113/61. Dropped to 100/56 when standing. Patient reported feeling dizzy. O2 sats were 88% when sitting, encouraged to take deep breaths, increased to 92%. When standing saturation dropped down to 77%. Notified triage nurse Roseline, RN. O2 sats increased to 96% on 2L O2.
[2019-06-14 09:55] LABS: Hematocrit 24.1 % (41-53); Hemoglobin 8.2 g/dL (13.5-17.5); Mean Corpuscular HGB Conc 33.9 % (30-36); Mean Corpuscular Hemoglobin 30.2 PG (26-34); Mean Corpuscular Volume 89.1 fL (80-100); Platelet Count 591 X10^3/uL (150-400); Red Blood Cell Count 2.71 X10^6/uL (4.5-5.9); Red Cell Distribution Width 13.8 % (11.6-14.8); White Blood Cell Count 26.2 X10^3/uL (4.5-11.0)
[2019-06-14 09:59] LABS: Add Manual Diff / Slide Review YES
[2019-06-14 10:08] LABS: Alanine Aminotransferase 16 IU/L (<50); Albumin 2.8 g/dL (3.5-5.0); Albumin Globulin Ratio 0.9 (1.0-2.8); Alkaline Phosphatase 91 U/L (38-126); Aspartate Aminotransferase 38 IU/L (17-59); BUN Creatinine Ratio 25.8 (6-22); Bilirubin Total 0.3 mg/dL (0.2-1.3); Blood Urea Nitrogen 31 mg/dL (9-20); Calcium 8.7 mg/dL (8.4-10.2); Carbon Dioxide 22 mmol/L (22-32); Chloride 103 mmol/L (98-107); Estimated Glomerular Filt Rate 59.3 mL/min (>60); Glucose 127 mg/dL (80-110); HEMOLYSIS < 15 (0-50); Magnesium 1.9 mg/dL (1.6-2.3); Potassium 4.5 mmol/L (3.4-5.1); Sodium 136 mmol/L (137-145); Total Protein 5.8 g/dL (6.3-8.2)
--- NOTE | 2019-06-14 10:35 | PC.NURSE ---
Cold symptoms Pt reports that he has been having a varying intensity of cold symptoms with sore throat for the past few days. Yesterday reported he was feeling better, but today is feeling more hoarse. Lung sounds diminished bilaterally with fine crackles at posterior bases. Triage nurse Roesline RN and aware.
[2019-06-14 10:44] LABS: Neutrophils Absolute Manual 24890 /uL (3000-5900); Total Cells Counted 100
[2019-06-14 10:45] LABS: Anisocytosis 1+
[2019-06-14 10:46] LABS: Platelet Estimate Increased on smear
[2019-06-14] MEDS: SODIUM CHLORIDE 0.9% 500 ML 333 ML IV (11:03)
--- NOTE | 2019-06-14 11:13 | PC.NURSE ---
PT reports SOB with minimal exertion. CT completed yesterday and Dr. Fox reviewed and DC'd Chemo r/t to poss inflammation r/t Bleomycin. Pt presents today in clinic c/o sore throat for 3days unchanged in severity. Afebrile. Sats 88% on RA, increased to 95% w/ 2LNC w/i minutes. Order placed for RT home O2 eval. Dr. London out to see pt; RX called into [facility] for prednisone and ABX. LS unchanged from yesterday per RN, TP. Orthostatic hypotension noted, 500mls NS ordered per Dr. London. Attempted pt on RA for approx 15mins, sats declined 70% according to RN, TP. O2 replaced, sats incresaed to 94%. RT evaluating pt at this time.
[2019-06-14 11:25] VITALS: BP 118/61; PULSE 97
[2019-06-14 11:27] VITALS: BP 99/61; PULSE 102
--- NOTE | 2019-06-14 13:06 | P.PNONC_ITS ---
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 He himself first noticed a painless bump in his right testicle one week before seeing Dr. Aaron Mesa a [facility]. On 01/20/2019, scrotal ultrasound a heterogeneous echogenicity shrunken appearing testis on the right measuring up to 3.2 cm, large right scrotal hydrocele, lobular mass in the right scrotum measuing up to 5.4 cm with heterogenous internal echogenicity. On 01/25/2019, he underwent CT abdomen and pelvis that showed an irregular right scrotal mass with large right hydrocele, interval single 1 cm short axis precaval lymph node, but no other adenopathy or solid visceral metastasis. Mild hepatic steatosis noted. a 1 cm hypodensity in segment 4a of the liver compatible with cyst or hemangioma, and incidental findings of severe atherosclerosis and mild colonic diverticulosis. On 02/13/2019 labs showed AFP 1.8 ng/mL (ref: < 6.1), LDH 220, HCG 7.67 mIU/mL (ref: 0-3.1) CXR on 02/13/2019 showed no acute cardiopulmonary abnormality. Feb 23, 2019, De Mckeon performed inguinal radical right orchiectomy. he final pathology showed seminoma, 7.2 x 5.5 x 3.8 cm, unifocal, tumor invading the tunica albuginea and tunica vaginitis, tumor invading the epididymis, tumor invading spermatic cord, all margins negative, lymphovascular invasion negative, no lymph node identified, and the pathological staging was pT3 pNx. He underwent CT CAP on 03/21/2019. The scan showed enlarging aortocaval lymph node highly suspicious for metastatic disease, small fluid collection in the right inguinal canal with rim enhancement, and no metastatic disease in the chest. TUMOR BOARD discussion deemed that the aortocaval lymph node is highly suspicious for metastasis. Adjuvant chemotherapy is recommended. He was started on BEP on 04/16/2019 Interim Events: Patient started cycle 3. Of BEP on June 12 2019. When he presented yesterday for day 2 he was increasingly short of breath and his chemotherapy was canceled was suggested to come back today for re-evaluation by nursing staff I was asked to evaluate the patient due to persistent weakness, shortness of breath and hypoxia most likely believed to be due to bleomycin CT chest of yesterday shows bilateral peripheral interstitial changes - Patient Self-Reported Symptoms SR Constitution: Fatigue/Malaise SR ears, nose, mouth, throat issues: Hoarseness SR respiratory issues: Cough, Shortness of breath Home Medications and Allergies Home Medications Medication Instructions Recorded Confirmed Type acetaminophen [Tylenol Extra 1,000 mg PO QAM 03/20/19 06/12/19 History Strength] diphenhydramine-acetaminophen 2 tab PO BEDTIME PRN 03/20/19 06/12/19 History [Tylenol PM Extra Strength] levothyroxine [Synthroid] 150 mcg PO DAILY 03/20/19 06/12/19 History loratadine 10 mg PO DAILY 03/20/19 06/12/19 History multivitamin 1 cap PO DAILY 03/20/19 06/12/19 History vitamin B complex 1 tab PO DAILY 03/20/19 06/12/19 History atorvastatin 40 mg PO DAILY 04/20/19 06/12/19 History ondansetron HCl [Zofran] 4 mg PO Q6H 60 Days #240 tab 05/01/19 06/12/19 Rx Adult Low Dose Aspirin 328 mg PO QAM 05/25/19 06/12/19 History metoprolol succinate 1 tab QAM 05/25/19 06/12/19 History potassium chloride 20 meq PO DAILY #7 ea 05/29/19 06/12/19 Rx levofloxacin [Levaquin] 500 mg PO DAILY 10 Days #10 tab 06/05/19 06/12/19 Rx lorazepam [Ativan] 0.5 mg PO Q6H PRN #60 tab 06/05/19 06/12/19 Rx prochlorperazine maleate 10 mg PO Q6H PRN #90 tab 06/05/19 06/12/19 Rx [Compazine] Allergies Allergy/AdvReac Type Severity Reaction Status Date / Time No Known Drug Allergies Allergy Verified 05/15/19 10:01 Exam Vital signs: Vital Signs Temp Pulse Resp BP Pulse Ox 06/14/19 11:27 102 H 99/61 06/14/19 11:25 97 H 118/61 06/14/19 09:11 70 16 95 06/14/19 09:10 100/56 L 01/29/20 09:05 97.5 F L 83 16 113/61 88 L 06/13/19 13:25 91 H 123/62 94 - Constitutional positive mild distress, negative diaphoretic, negative agitated - Routine HEENT Exam ENT: Present: mucous membranes moist Comments: No exudate or mucositis - Routine Chest/Breast/Axilla Exam Axillae: Absent: lymphadenopathy - Routine Respiratory Exam Present: crackles - Routine Cardiovascular Exam Present: RRR - Routine Abdominal Exam Present: soft Results - Labs Laboratory Last Values WBC 26.2 X10^3/uL (4.5-11.0) H 06/14/19 09:43 RBC 2.71 X10^6/uL (4.5-5.9) L 06/14/19 09:43 Hgb 8.2 g/dL (13.5-17.5) L 06/14/19 09:43 Hct 24.1 % (41-53) L 06/14/19 09:43 MCV 89.1 fL (80-100) 06/14/19 09:43 MCH 30.2 PG (26-34) 06/14/19 09:43 MCHC 33.9 % (30-36) 06/14/19 09:43 RDW 13.8 % (11.6-14.8) 06/14/19 09:43 Plt Count 591 X10^3/uL (150-400) H 06/14/19 09:43 Neut % (Auto) Not Reportable 06/14/19 09:43 Lymph % (Auto) Not Reportable 06/14/19 09:43 [place] % (Auto) Not Reportable 06/14/19 09:43 Eos % (Auto) Not Reportable 06/14/19 09:43 Baso % (Auto) Not Reportable 06/14/19 09:43 Neut # (Auto) 4800 /uL (8879-4276) 05/29/19 08:40 Lymph # (Auto) Not Reportable 06/14/19 09:43 [place] # (Auto) Not Reportable 06/14/19 09:43 Eos # (Auto) 0 /uL (0-450) 05/29/19 08:40 Baso # (Auto) Not Reportable 06/14/19 09:43 Total Counted 100 06/14/19 09:43 Seg Neutrophils % 90.0 % (38-70) H 06/14/19 09:43 Band Neutrophils % 5.0 % (3-7) 06/14/19 09:43 Lymphocytes % (Manual) 1.0 % (25-45) L 06/14/19 09:43 Atypical Lymphs % 1.0 % (-0) H 06/12/19 09:15 Monocytes % (Manual) 4.0 % (2-11) 06/14/19 09:43 Eosinophils % (Manual) 2.0 % (2-4) 06/06/19 10:00 Basophils % (Manual) 1.0 % (0-1) 05/22/19 08:40 Metamyelocytes % 2.0 % (-0) H 06/12/19 09:15 Myelocytes % 3.0 % (-0) H 06/12/19 09:15 Neutrophils # (Manual) 05933 /uL (2641-4225) H 06/14/19 09:43 Platelet Estimate Increased on smear 06/14/19 09:43 RBC Morphology See below 06/14/19 09:43 Polychromasia 1+ H 06/12/19 09:15 Anisocytosis 1+ H 06/14/19 09:43 [place] Cells 2+ H 05/15/19 08:55 Sodium 136 mmol/L (137-145) L 06/14/19 09:43 Potassium 4.5 mmol/L (3.4-5.1) D 06/14/19 09:43 Chloride 103 mmol/L (98-107) 06/14/19 09:43 Carbon Dioxide 22 mmol/L (22-32) 06/14/19 09:43 BUN 31 mg/dL (9-20) H 06/14/19 09:43 Creatinine 1.20 mg/dL (0.66-1.25) 06/14/19 09:43 Estimated GFR 59.3 mL/min (>60) L 06/14/19 09:43 BUN/Creatinine Ratio 25.8 (6-22) H 06/14/19 09:43 Glucose 127 mg/dL (80-110) H 06/14/19 09:43 Calcium 8.7 mg/dL (8.4-10.2) 06/14/19 09:43 Magnesium 1.9 mg/dL (1.6-2.3) 06/14/19 09:43 Total Bilirubin 0.3 mg/dL (0.2-1.3) 06/14/19 09:43 AST 38 IU/L (17-59) 06/14/19 09:43 ALT 16 IU/L (<50) 06/14/19 09:43 Alkaline Phosphatase 91 U/L (38-126) 06/14/19 09:43 Lactate Dehydrogenase 635 U/L (313-618) H 05/22/19 08:40 Total Protein 5.8 g/dL (6.3-8.2) L 06/14/19 09:43 Albumin 2.8 g/dL (3.5-5.0) L 06/14/19 09:43 Globulin 3.0 g/dL (1.7-4.1) 06/14/19 09:43 Albumin/Globulin Ratio 0.9 (1.0-2.8) L 06/14/19 09:43 Alpha Fetoprotein 3.0 ng/mL (< 6.1) 05/22/19 08:40 HCG, Quant < 2.39 mIU/mL (-2.40) 05/22/19 08:40 Assessment and Plan (1) Seminoma of descended right testis Overview: 73 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 Preoperative beta HCG 7.67, AFP 1.[address] scan showed enlarging aortocaval lymph nodes highly suspicious for involvement of seminoma. His disease staging was pT3 cN1 (stage IIA). Assessment: Patient seen in the infusion room due to weakness, shortness of breath, relatively low blood pressure, mild orthostatics symptoms, cough and room air hypoxia, no chest pain or pleurisy On exam he did not appear in any serious distress and was not diaphoretic and non febrile. He had just started day 1 of cycle 3 of BEP on June 12. Treatment was counseled on June 13 because of shortness of breath. CT chest without contrast of yesterday reviewed showing interstitial changes in the periphery Overall concern about pulmonary toxicity of bleomycin. However at the same [place] [id number] with slight left shift which is somewhat more than 1 would expect from dexamethasone he received with day 1 of chemotherapy. For this reason we again counseled his chemotherapy to date. Normal saline 500 cc IV Initiate prednisone 20 mg once daily for 5 days to control possible drug-induced pneumonitis. Empiric initiation of azithromycin for possibility of coexisting upper respiratory infection with a five-day standard course of Z-Micheal Home oxygen initiated with a portable oxygen, since patient had an O2 sat of 88% on room air at rest, it dropped to 79% with walking. It improved to 94% with O2. PT eval performed recommended 4 L per nasal cannula which was ordered Patient with come back tomorrow for evaluation by doctor Ruddy (2) Hypoxia Current visit: Yes Status: Acute (3) Drug-induced interstitial lung disorders, unspecified Current visit: Yes Status: Acute
[2019-06-15 09:37] VITALS: BP 113/60; PULSE 103; RESP 16; TEMP 36.3; O2SAT 90
[2019-06-15 09:40] VITALS: BP 100/67; PULSE 131; RESP 16; O2SAT 84
--- NOTE | 2019-06-15 09:53 | PC.NURSE ---
pt reports low back pain 4 out of 10 from fall this morning. states he got up from a chair and fell backwards onto his bottom. standing for orthostatic VS, pt reports wuzziness and feeling of passing out. O2 sat drops from 90% to 84% when pt stands from sitting.
--- NOTE | 2019-06-15 10:03 | PC.NURSE ---
LOW SATS ON 4L OXYGEN, PER ORDER DR BROWN PATIENT BROUGHT TO ER IN WHEELCHAIR ON 4LOXYGEN AFTER ACCESS OF PORT. HE IS ACCOMPANIED BY HIS [id number].
--- NOTE | 2019-06-15 10:24 | PC.NURSE ---
Addendum entered by Davide Gr R.N. 06/15/19 10:29: TP, RN listened to patients lungs and also reported new onset of exp ronchi present with BLE insp. crackles. Original Note: Pt reported to clinic today that he fell at home while transferring. Caregiver reported he was on the floor about 20 minutes before she got there. Orthostatic vital signs were obtained. sittin/60, P-103, O2-90% standin/67, P-131 O2-84% Pt reported feeling dizzy while standing for VS and had to sit down on 4L nasal canula. Dr. Gandhi notified and recommended bringing the pt to ER. RB, RN gave report to ED nurse and pt was broughto the ED via w/c with caregiver Danica present. Pt was AOx4 and agreeable to the ED recommendation.
--- NOTE | 2019-07-18 13:46 | ONC.MSW ---
*Sent bereavement card.
== END ==
PROVIDERS: PCP Internal Medicine; Visit Provider Internal Medicine Hematology & Oncology
DX: C62.11 Malignant neoplasm of descended right testis (principal)
CPT/HCPCS: 36415; 36591; 70450; 71045; 76770; 80053; 82105; 82550; 82553; 82962; 83615; 83690; 83735; 84484; 84702; 85025; 85610; 85730; 93005; 93971; 94060; 94618; 94726; 94729; 96360; 96361; 96365; 96366; 96367; 96368; 96372; 96374; 96375; 96409; 96411; 96413; 96415; 96417; 99204; 99214; 99215; 99291; J1100; J1453; J1940; J1956; J2150; J2405; J3475; J3480; J9040; J9060; J9181

== ENCOUNTER 2019-06-15 09:59 | Inpatient (IN) | payer MEDICARE, OTHER, SELFPAY ==
[2019-06-15] VITALS (15 sets, daily range): BP systolic 120–163; BP diastolic 65–89; PULSE 67–96; RESP 15–29; TEMP 36.3–36.8; O2SAT 84–99; BMI 25.1; BMI 24.3
--- NOTE | 2019-06-15 10:13 | DI.RAD.S_ITS ---
PROCEDURE: XR CHEST 2V INDICATIONS: shortness of breath TECHNIQUE: 2 views of the chest were acquired. COMPARISON: [facility], CT, CT CHEST WO CON, 06/13/2019, 13:28. [facility], CR, XR CHEST 1V, 05/15/2019, 10:18. [facility], CR, XR CHEST 1V, 04/26/2019, 15:04. FINDINGS: Surgical changes and devices: Left-sided port with the catheter tip in the lower third of the SVC. Lungs and pleura: Lower lobe predominant ill-defined opacity bilaterally. No pleural effusions or pneumothorax. Mediastinum: Mediastinal contours are normal. Heart size is normal. Bones and chest wall: No suspicious bony abnormalities. Soft tissues appear unremarkable. ACDF. IMPRESSION: Lower lobe predominant ill-defined airspace opacity. This may represent multifocal pneumonia, aspiration, atelectasis, with likely superimposed emphysematous change. Dictated by: Carlitos Almonte M.D. on 06/15/2019 at 10:48 Approved by: Carlitos Almonte M.D. on 06/15/2019 at 10:51
[2019-06-15 10:25] LABS: Add Manual Diff / Slide Review NO; Basophils Absolute Auto 0 /uL (0-100); Basophils Percent Auto 0.2 % (0-2); Eosinophils Absolute Auto 0 /uL (0-450); Hematocrit 24.6 % (41-53); Hemoglobin 8.5 g/dL (13.5-17.5); Lymphocytes Absolute Auto 400 /uL (1100-4500); Lymphocytes Percent Auto 2.4 % (25-40); Mean Corpuscular HGB Conc 34.5 % (30-36); Mean Corpuscular Hemoglobin 30.7 PG (26-34); Monocytes Absolute Auto 600 /uL (0-900); Monocytes Percent Auto 3.5 % (3-14); Neutrophils Absolute Auto 16300 /uL (1500-7000); Neutrophils Percent Auto 93.9 % (50-75); Platelet Count 489 X10^3/uL (150-400); Red Blood Cell Count 2.77 X10^6/uL (4.5-5.9); Red Cell Distribution Width 13.9 % (11.6-14.8); White Blood Cell Count 17.3 X10^3/uL (4.5-11.0)
[2019-06-15 10:38] LABS: Alanine Aminotransferase 18 IU/L (<50); Albumin 2.8 g/dL (3.5-5.0); Alkaline Phosphatase 93 U/L (38-126); Aspartate Aminotransferase 50 IU/L (17-59); BUN Creatinine Ratio 31.1 (6-22); Bilirubin Total 0.3 mg/dL (0.2-1.3); Blood Urea Nitrogen 28 mg/dL (9-20); Calcium 8.6 mg/dL (8.4-10.2); Carbon Dioxide 24 mmol/L (22-32); Chloride 102 mmol/L (98-107); Estimated Glomerular Filt Rate > 60.0 mL/min (>60); Globulin 2.9 g/dL (1.7-4.1); Glucose 131 mg/dL (80-110); HEMOLYSIS < 15 (0-50); Potassium 4.3 mmol/L (3.4-5.1); Sodium 135 mmol/L (137-145); Total Protein 5.7 g/dL (6.3-8.2)
[2019-06-15 10:39] LABS: Lactate (Lactic Acid) 3.4 mmol/L (0.7-2.1)
[2019-06-15 12:22] LABS: Reflexed Lactate in 2 Hours Y
--- NOTE | 2019-06-15 12:26 | DI.CT.S_ITS ---
PROCEDURE: CT ANGIO CHEST PE PROTOCOL INDICATIONS: Hypoxia TECHNIQUE: After the administration of intravenous contrast, 2 mm thick sections acquired from the pulmonary apices to the posterior costophrenic angles. 3-dimensional maximum intensity projection (MIP) coronal and sagittal reformats were then acquired through the thorax. For radiation dose reduction, the following was used: automated exposure control, adjustment of mA and/or kV according to patient size. COMPARISON: [facility], CT, CT CHEST WO CON, 06/13/2019, 13:28. [facility], CT, CT CHEST ABD PEL W CON, 03/21/2019, 10:08. FINDINGS: Image quality: Excellent. Pulmonary arteries: Pulmonary arteries are normal in size, and demonstrate no intraluminal filling defects to suggest central pulmonary embolism. Lungs and pleura: There continue to be patchy areas of groundglass attenuation that is more pronounced within the bilateral lung bases, which has significantly increased in the interim. Areas of subpleural consolidation are identified. Intralobular septal thickening appears to be present. There is developing bronchiectasis. This appearance has progressed since the most recent examination from 06/13/19 and is completely new since the exam from 03/21/19. Mediastinum: Heart size is enlarged, without pericardial effusion. Coronary artery atherosclerosis is present. Multiple borderline prominent lymph nodes are identified within the hilar and mediastinal regions. The dominant lymph node is located within a right tracheobronchial region and measures up to approximately 1.0 cm in short axis, which is unchanged since previous exams. Thoracic aorta is normal in caliber and enhancement. There is moderate thickening of the wall of the esophagus with an associated moderate-sized hiatal hernia. A left-sided Port-A-Cath central line is again identified. Bones and chest wall: No suspicious bony lesions. Ribs and thoracic spine appear intact throughout. A T12 compression deformity appears unchanged. Thyroid gland is not enlarged or adequately evaluated. No axillary or supraclavicular adenopathy. Abdomen: Included portions of the upper abdomen are grossly unremarkable. However, there may be a very small diverticulum involving the 2nd portion of the duodenum. IMPRESSION: 1. No evidence of pulmonary emboli. 2. Abnormal groundglass attenuation and air space disease within the lungs has increased in the past 2 days and demonstrates increasing degree of areas of consolidation. While this appearance remains most suspicious for a developing organizing pneumonia or pulmonary fibrotic changes related to bleomycin treatment or other external factors, a superimposed infectious process or pulmonary edema cannot be excluded. 3. Cardiomegaly. 4. Wall thickening of the esophagus with an associated moderate-sized hiatal hernia. 5. Borderline prominent mediastinal and hilar lymph nodes are likely reactive to the process involving the lungs. Dictated by: David Cleary M.D. on 06/15/2019 at 14:05 Approved by: David Cleary M.D. on 06/15/2019 at 14:12
[2019-06-15] MEDS: SODIUM CHLORIDE 0.9% 1,000 ML 1000 ML IV (12:34)
[2019-06-15 12:35] LABS: Procalcitonin 0.15 ng/mL (<0.5)
--- NOTE | 2019-06-15 12:58 | ED.SOB ---
HPI - SOB/Dyspnea <Maribell PenaJUSTINE - Last Filed: 06/15/19 22:33> General Chief Complaint: Shortness of Breath/Dyspnea Stated Complaint: low saturation Time Seen by Provider: 06/15/19 12:04 Source: patient Mode of arrival: Wheelchair History of Present Illness HPI Narrative: 73yo male who is a former smoker, with a history of testicular cancer (last chemo was 4 days ago, patient had surgery February 2019), presents to the emergency department for worsening shortness of breath. [facility] for repeat laboratory work, he was noted to have low oxygen saturation. Patient and stated when he was seen in the clinic his oxygen saturation was in the low 80s with ambulation. Patient was discharged home on prednisone, Levaquin, and home oxygen after a CT scan showing possible atypical pneumonia. Patient states he has taken 2 doses of his antibiotic yesterday and 1 dose this morning, he has had 2 doses of the steroid. However, he continues to complain of worsening shortness of breath, dizziness this morning, and weakness. Patient denies any fevers, nausea, vomiting, diarrhea, abdominal pain, chest pain, or other concerns. [id number] reports that she was told that his body may not be able to handle another treatment of chemo and that they may discontinue treatment unless his follow-up scan shows decreasing tumors. Patient denies recent history of a DVT or PE. He denies taking any blood thinners. Patient is currently arrives on 4L nasal cannula. Related Data Home Medications Medication Instructions Recorded Confirmed acetaminophen [Tylenol Extra 1,000 mg PO QAM 03/20/19 06/15/19 Strength] diphenhydramine-acetaminophen 2 tab PO BEDTIME PRN 03/20/19 06/15/19 [Tylenol PM Extra Strength] levothyroxine [Synthroid] 150 mcg PO DAILY 03/20/19 06/15/19 loratadine 10 mg PO DAILY PRN 03/20/19 06/15/19 multivitamin 1 cap PO DAILY 03/20/19 06/15/19 vitamin B complex 1 tab PO DAILY 03/20/19 06/15/19 metoprolol succinate 25 mg PO DAILY 05/25/19 06/15/19 aspirin 162 mg PO DAILY 06/15/19 06/15/19 azithromycin See Rx Instructions .ROUTE .COMPLEX 06/15/19 06/15/19 prednisone 20 mg PO DAILYX5 06/15/19 06/15/19 Previous Rx's Medication Instructions Recorded potassium chloride 20 meq PO DAILY #7 ea 05/29/19 lorazepam [Ativan] 0.5 mg PO Q6H PRN #60 tab 06/05/19 prochlorperazine maleate 10 mg PO Q6H PRN #90 tab 06/05/19 [Compazine] Allergies Allergy/AdvReac Type Severity Reaction Status Date / Time No Known Drug Allergies Allergy Verified 06/15/19 10:09 Review of Systems <JUSTINE Morris - Last Filed: 06/15/19 22:33> Review of Systems Narrative: REVIEW OF SYSTEMS: GENERAL: Denies fevers. HENT: No head trauma or hearing loss. EYES: No loss of vision, double vision, eye pain, irritation or discharge. CARDIOVASCULAR: No chest pain or syncope. RESPIRATORY: Reports shortness of breath, see HPI. GASTROINTESTINAL: No nausea, vomiting, diarrhea, or constipation. MUSCULOSKELETAL: Reports increasing weakness, see HPI. INTEGUMENTARY: No rash, lesions, or pruritus. NEURO: No memory loss, or confusion. Patient History <JUSTINE Morris - Last Filed: 06/15/19 22:33> Medical History Hyperlipidemia (Acute) Hypertension (Acute) Hypothyroidism (Acute) Stroke (Acute) Testicular cancer (Acute) Surgical History History of neck surgery (Acute ~1986) Hx of unilateral orchiectomy (Acute 02/23/19) Family History Mother Alzheimer disease Father Heart disease Social History household members: other occupational status: previously employed Smoking Status: Former smoker alcohol intake: former substance use type: does not use Smoking Status: Former smoker alcohol intake frequency: 0-2 drinks per day Substance Use Type: does not use Exam <JUSTINE Morris - Last Filed: 06/15/19 22:33> Initial Vital Signs Initial Vital Signs: Vital Signs Temperature 97.4 F L 01/30/20 10:09 Pulse Rate 95 H 06/15/19 10:09 Respiratory Rate 15 06/15/19 10:09 Blood Pressure 163/77 H 06/15/19 10:09 Pulse Oximetry 95 06/15/19 10:09 PHYSICAL EXAMINATION: GENERAL: Well groomed, alert, and cooperative. AO x3. Answers questions promptly and appropriately. Vital signs noted. HENT: Normocephalic, atraumatic. Ear canals patent. TMs intact without mucus or erythema. Oropharynx without erythema. Tonsils are not present. EYES: Conjunctiva pink, sclera white, no periorbital swelling. No discharge. CHEST: Normal to inspection and without deformities. CARDIOVASCULAR: S1 and S2 sounds normal. Regular rate and rhythm, no murmurs, clicks, or bruits. RESPIRATORY: Normal respiratory rate, trachea midline, airway patent. No stridor, nasal flaring or accessory muscle use. Able to speak in full sentences. Lungs with lower bilateral crackles, heard worse on the right than the left. Patient is tachypneic when asked to move around in the bed. No cough heard during examination. MUSCULOSKELETAL: Normal gait and coordination. Equal tone and mass bilaterally. EXTREMITIES: Moves all extremities. SKIN: Warm, dry, soft, appropriate color for ethnicity. No lesions, rashes, or wounds to visualized areas. NEURO: Alert and Oriented X 3. Good coordination. No ataxia or cognitive issues. PSYCH: Appropriate affect and mood. <Andre Salazar MD - Last Filed: 06/16/19 10:37> Initial Vital Signs Initial Vital Signs: Vital Signs Temperature 97.4 F L 06/15/19 10:09 Pulse Rate 95 H 06/15/19 10:09 Respiratory Rate 15 06/15/19 10:09 Blood Pressure 163/77 H 06/15/19 10:09 Pulse Oximetry 95 06/15/19 10:09 Scores <JUSTINE Morris - Last Filed: 06/15/19 22:33> qSOFA Altered Mental Status (GCS <15): No Respiratory rate greater than/equal to 22: No Systolic blood pressure less than or equal to 100: No qSOFA Total: 0 0-1 Not High Risk 1-3 High risk Course <JUSTINE Morris - Last Filed: 06/15/19 22:33> Course Course Narrative: Patient was not initially given antibiotics as he reported taking his Levaquin this morning, he has not vomited since taking his medication. The 1 L of fluids was administered due to BNP level. Patient was given a Duoneb to help with SOB symptoms. Nursing reported that patient had decreased oxygen saturations with movement to the high 80's% while on 4L NC. However, patient remains at 94% while at rest with 4L NC. No BiPAP indicated at this time. I discussed with patient that BiPAP and/or intubation may be needed if his condition does not improve, encouraged patient to think about what his future wishes were in terms of these interventions. Orders Ordered: Acetaminophen (Tylenol) 650 mg PO Q6HR PRN PRN Reason: Fever/Mild Pain (1-3) Aspirin (Aspirin Ec) 162 mg PO DAILY [facility] Last Admin: 06/16/19 08:13 Dose: 162 mg Documented by: EDITH Benzocaine (Cepacol Lozenge) 1 each PO PRN PRN PRN Reason: Sore Throat Enoxaparin Sodium (Lovenox) 40 mg SUBCUT DAILY [facility] Last Admin: 06/16/19 08:13 Dose: 40 mg Documented by: EDITH Azithromycin 250 mg/ Dextrose 250 mls @ 250 mls/hr IV Q24H [facility] Last Admin: 06/16/19 08:18 Dose: 250 mls/hr Documented by: EDITH Ceftriaxone Sodium/Dextrose (Rocephin) 1 gm in 50 mls @ 100 mls/hr IV Q24H [facility] Last Infusion: 06/16/19 08:10 Dose: 0 mls/hr Documented by: Admin: 06/15/19 18:28 Dose: 100 mls/hr Documented by: SARAH Levothyroxine Sodium (Synthroid) 150 mcg PO DAILY [facility] Last Admin: 06/16/19 08:13 Dose: 150 mcg Documented by: EDITH Metoprolol Succinate (Toprol Xl) 25 mg PO DAILY [facility] Last Admin: 06/16/19 08:13 Dose: 25 mg Documented by: EDITH Naloxone HCl (Narcan) 0.2 mg IV Q2MIN PRN PRN Reason: Opiate Reversal Potassium Chloride (Klor-Con M20) 20 meq PO DAILY [facility] Last Admin: 06/16/19 08:13 Dose: 20 meq Documented by: EDITH Prednisone (Deltasone) 60 mg PO DAILY [facility] Last Admin: 06/16/19 08:17 Dose: 60 mg Documented by: EDITH Discontinued Medications Albuterol (Ventolin) 2.5 mg INH NOW ONE Stop: 06/15/19 13:43 Last Admin: 06/15/19 13:48 Dose: 2.5 mg Documented by: NAJMA Sodium Chloride (Normal Saline 0.9%) 1,000 mls @ 1,000 mls/hr IV BOLUS ONE Stop: 06/15/19 13:20 Last Infusion: 06/15/19 13:30 Dose: 0 mls/hr Documented by: Admin: 06/15/19 12:34 Dose: 1,000 mls/hr Documented by: MARIXA Prednisone (Deltasone) 60 mg PO NOW ONE Stop: 06/15/19 17:26 Last Admin: 06/15/19 18:29 Dose: 60 mg Documented by: SARAH Consultations Consultation #1: Patient was staffed with Dr. Salazar Consultation #2: Patient was admitted to Dr. Hopkins Vital Signs Vital signs: Vital Signs - 8 hr 06/15/19 14:38 06/15/19 14:46 06/15/19 15:33 Pulse Rate 96 H 90 Respiratory Rate 24 27 H Blood Pressure [Right Arm] 140/67 140/67 Pulse Oximetry 90 L 84 L 94 06/15/19 16:53 Pulse Rate 94 H Respiratory Rate 25 H Blood Pressure [Right Arm] 127/65 Pulse Oximetry 92 <Andre Salazar MD - Last Filed: 06/16/19 10:37> Orders Ordered: Acetaminophen (Tylenol) 650 mg PO Q6HR PRN PRN Reason: Fever/Mild Pain (1-3) Aspirin (Aspirin Ec) 162 mg PO DAILY [facility] Last Admin: 06/16/19 08:13 Dose: 162 mg Documented by: EDITH Benzocaine (Cepacol Lozenge) 1 each PO PRN PRN PRN Reason: Sore Throat Enoxaparin Sodium (Lovenox) 40 mg SUBCUT DAILY [facility] Last Admin: 06/16/19 08:13 Dose: 40 mg Documented by: EDITH Azithromycin 250 mg/ Dextrose 250 mls @ 250 mls/hr IV Q24H [facility] Last Admin: 06/16/19 08:18 Dose: 250 mls/hr Documented by: EDITH Ceftriaxone Sodium/Dextrose (Rocephin) 1 gm in 50 mls @ 100 mls/hr IV Q24H [facility] Last Infusion: 06/16/19 08:10 Dose: 0 mls/hr Documented by: Admin: 06/15/19 18:28 Dose: 100 mls/hr Documented by: SARAH Levothyroxine Sodium (Synthroid) 150 mcg PO DAILY [facility] Last Admin: 06/16/19 08:13 Dose: 150 mcg Documented by: EDITH Metoprolol Succinate (Toprol Xl) 25 mg PO DAILY [facility] Last Admin: 06/16/19 08:13 Dose: 25 mg Documented by: EDITH Naloxone HCl (Narcan) 0.2 mg IV Q2MIN PRN PRN Reason: Opiate Reversal Potassium Chloride (Klor-Con M20) 20 meq PO DAILY [facility] Last Admin: 06/16/19 08:13 Dose: 20 meq Documented by: EDITH Prednisone (Deltasone) 60 mg PO DAILY [facility] Last Admin: 06/16/19 08:17 Dose: 60 mg Documented by: EDITH Discontinued Medications Albuterol (Ventolin) 2.5 mg INH NOW ONE Stop: 06/15/19 13:43 Last Admin: 06/15/19 13:48 Dose: 2.5 mg Documented by: NAJMA Sodium Chloride (Normal Saline 0.9%) 1,000 mls @ 1,000 mls/hr IV BOLUS ONE Stop: 06/15/19 13:20 Last Infusion: 06/15/19 13:30 Dose: 0 mls/hr Documented by: Admin: 06/15/19 12:34 Dose: 1,000 mls/hr Documented by: MARIXA Prednisone (Deltasone) 60 mg PO NOW ONE Stop: 06/15/19 17:26 Last Admin: 06/15/19 18:29 Dose: 60 mg Documented by: SARAH Vital Signs Vital signs: Vital Signs - 8 hr 06/15/19 14:38 06/15/19 14:46 06/15/19 15:33 Pulse Rate 96 H 90 Respiratory Rate 24 27 H Blood Pressure [Right Arm] 140/67 140/67 Pulse Oximetry 90 L 84 L 94 06/15/19 16:53 Pulse Rate 94 H Respiratory Rate 25 H Blood Pressure [Right Arm] 127/65 Pulse Oximetry 92 MDM - SOB/Dyspnea <Maribell De SouzaJUSTINE melgar - Last Filed: 06/15/19 22:33> Medical Records Attestation: I reviewed the patient's medical records. Lab Data Attestation: I reviewed the patient's lab results. Result diagrams: 06/16/19 06:10 06/16/19 06:10 Labs: Lab Results 06/15/19 06/15/19 06/15/19 Range/Units 10:19 10:19 10:19 WBC 17.3 H (4.5-11.0) X10^3/uL RBC 2.77 L (4.5-5.9) X10^6/uL Hgb 8.5 L (13.5-17.5) g/dL Hct 24.6 L (41-53) % MCV 89.0 (80-100) fL MCH 30.7 (26-34) PG MCHC 34.5 (30-36) % RDW 13.9 (11.6-14.8) % Plt Count 489 H (150-400) X10^3/uL Neut % (Auto) 93.9 H (50-75) % Lymph % (Auto) 2.4 L (25-40) % Lea % (Auto) 3.5 (3-14) % Eos % (Auto) 0.0 L (2-4) % Baso % (Auto) 0.2 (0-2) % Neut # (Auto) 01319 H (7230-7923) /uL Lymph # (Auto) 400 L (2288-9808) /uL Lea # (Auto) 600 (0-900) /uL Eos # (Auto) 0 (0-450) /uL Baso # (Auto) 0 (0-100) /uL Sodium 135 L (137-145) mmol/L Potassium 4.3 (3.4-5.1) mmol/L Chloride 102 (98-107) mmol/L Carbon Dioxide 24 (22-32) mmol/L BUN 28 H (9-20) mg/dL Creatinine 0.90 (0.66-1.25) mg/dL Estimated GFR > 60.0 (>60) mL/min BUN/Creatinine Ratio 31.1 H (6-22) Glucose 131 H (80-110) mg/dL Lactate 3.4 H (0.7-2.1) mmol/L Calcium 8.6 (8.4-10.2) mg/dL Total Bilirubin 0.3 (0.2-1.3) mg/dL AST 50 (17-59) IU/L ALT 18 (<50) IU/L Alkaline Phosphatase 93 (38-126) U/L Total Creatine Kinase (55-170) U/L CK-MB (CK-2) CK-MB (CK-2) Rel Index Troponin I (0.01-0.034) ng/mL NT-Pro-B Natriuret Pep (<125) pg/mL Total Protein 5.7 L (6.3-8.2) g/dL Albumin 2.8 L (3.5-5.0) g/dL Globulin 2.9 (1.7-4.1) g/dL Albumin/Globulin Ratio 1.0 (1.0-2.8) Procalcitonin (<0.5) ng/mL Influenza A (RT-PCR) (NEGATIVE) Influenza B (RT-PCR) (NEGATIVE) 06/15/19 06/15/19 06/15/19 Range/Units 10:19 10:19 10:22 WBC (4.5-11.0) X10^3/uL RBC (4.5-5.9) X10^6/uL Hgb (13.5-17.5) g/dL Hct (41-53) % MCV (80-100) fL MCH (26-34) PG MCHC (30-36) % RDW (11.6-14.8) % Plt Count (150-400) X10^3/uL Neut % (Auto) (50-75) % Lymph % (Auto) (25-40) % Lea % (Auto) (3-14) % Eos % (Auto) (2-4) % Baso % (Auto) (0-2) % Neut # (Auto) (1996-1000) /uL Lymph # (Auto) (9230-4539) /uL Lea # (Auto) (0-900) /uL Eos # (Auto) (0-450) /uL Baso # (Auto) (0-100) /uL Sodium (137-145) mmol/L Potassium (3.4-5.1) mmol/L Chloride (98-107) mmol/L Carbon Dioxide (22-32) mmol/L BUN (9-20) mg/dL Creatinine (0.66-1.25) mg/dL Estimated GFR (>60) mL/min BUN/Creatinine Ratio (6-22) Glucose (80-110) mg/dL Lactate (0.7-2.1) mmol/L Calcium (8.4-10.2) mg/dL Total Bilirubin (0.2-1.3) mg/dL AST (17-59) IU/L ALT (<50) IU/L Alkaline Phosphatase (38-126) U/L Total Creatine Kinase 66 (55-170) U/L CK-MB (CK-2) TNP CK-MB (CK-2) Rel Index TNP Troponin I < 0.012 (0.01-0.034) ng/mL NT-Pro-B Natriuret Pep 3150 H (<125) pg/mL Total Protein (6.3-8.2) g/dL Albumin (3.5-5.0) g/dL Globulin (1.7-4.1) g/dL Albumin/Globulin Ratio (1.0-2.8) Procalcitonin 0.15 (<0.5) ng/mL Influenza A (RT-PCR) (NEGATIVE) Influenza B (RT-PCR) (NEGATIVE) 06/15/19 06/15/19 Range/Units 12:35 12:55 WBC (4.5-11.0) X10^3/uL RBC (4.5-5.9) X10^6/uL Hgb (13.5-17.5) g/dL Hct (41-53) % MCV (80-100) fL MCH (26-34) PG MCHC (30-36) % RDW (11.6-14.8) % Plt Count (150-400) X10^3/uL Neut % (Auto) (50-75) % Lymph % (Auto) (25-40) % Lea % (Auto) (3-14) % Eos % (Auto) (2-4) % Baso % (Auto) (0-2) % Neut # (Auto) (2241-1119) /uL Lymph # (Auto) (9943-3139) /uL Lea # (Auto) (0-900) /uL Eos # (Auto) (0-450) /uL Baso # (Auto) (0-100) /uL Sodium (137-145) mmol/L Potassium (3.4-5.1) mmol/L Chloride (98-107) mmol/L Carbon Dioxide (22-32) mmol/L BUN (9-20) mg/dL Creatinine (0.66-1.25) mg/dL Estimated GFR (>60) mL/min BUN/Creatinine Ratio (6-22) Glucose (80-110) mg/dL Lactate 2.2 H (0.7-2.1) mmol/L Calcium (8.4-10.2) mg/dL Total Bilirubin (0.2-1.3) mg/dL AST (17-59) IU/L ALT (<50) IU/L Alkaline Phosphatase (38-126) U/L Total Creatine Kinase (55-170) U/L CK-MB (CK-2) CK-MB (CK-2) Rel Index Troponin I (0.01-0.034) ng/mL NT-Pro-B Natriuret Pep (<125) pg/mL Total Protein (6.3-8.2) g/dL Albumin (3.5-5.0) g/dL Globulin (1.7-4.1) g/dL Albumin/Globulin Ratio (1.0-2.8) Procalcitonin (<0.5) ng/mL Influenza A (RT-PCR) Flu a negative (NEGATIVE) Influenza B (RT-PCR) Flu b negative (NEGATIVE) Urine Dip Bedside Urine Glucose Negative Bedside Urine Bilirubin - Negative Bedside Urine Ketone - Negative Urine Specific Closplint 1.025 Bedside Urine Occult Blood - Negative Bedside Urine pH 6.0 Bedside Urine Protein - Negative Bedside Urine Urobilinogen - Negative Bedside Urine Nitrite - Negative Bedside Urine Leukocytes - Negative Esterase Imaging Data Chest x-ray: Radiologist's Impression: [address] [address] XRay Report Signed Patient: Alexander Zambrano Jr WMR#: [id number] : 6Acct:[id number] Age/Sex: 73 / MDate of Service: 06/15/19 Loc: ED Accession Number: [id number] Procedure: XR chest 2V Ordering Provider: Andre Salazar MD PROCEDURE: XR CHEST 2V INDICATIONS: shortness of breath TECHNIQUE: 2 views of the chest were acquired. COMPARISON: [facility], CT, CT CHEST WO CON, 06/13/2019, 13:28. [facility], CR, XR CHEST 1V, 05/15/2019, 10:18. [facility], CR, XR CHEST 1V, 04/26/2019, 15:04. FINDINGS: Surgical changes and devices: Left-sided port with the catheter tip in the lower third of the SVC. Lungs and pleura: Lower lobe predominant ill-defined opacity bilaterally. No pleural effusions or pneumothorax. Mediastinum: Mediastinal contours are normal. Heart size is normal. Bones and chest wall: No suspicious bony abnormalities. Soft tissues appear unremarkable. ACDF. IMPRESSION: Lower lobe predominant ill-defined airspace opacity. This may represent multifocal pneumonia, aspiration, atelectasis, with likely superimposed emphysematous change. Dictated by: Carlitos Almonte M.D. on 06/15/2019 at 10:48 Approved by: Carlitos Almonte M.D. on 06/15/2019 at 10:51 CTA angio.: Radiologist's Impression: [address] [place] [address] CT Scan Report Signed Patient: Alexander Zambrano Jr WMR#: [id number] : 6Acct:[id number] Age/Sex: 73 / MDate of Service: 06/15/19 Loc: ED Accession Number: [id number] Procedure: CT angio chest PE protocol Ordering Provider: Maribell Pena PROCEDURE: CT ANGIO CHEST PE PROTOCOL INDICATIONS: Hypoxia TECHNIQUE: After the administration of intravenous contrast, 2 mm thick sections acquired from the pulmonary apices to the posterior costophrenic angles. 3-dimensional maximum intensity projection (MIP) coronal and sagittal reformats were then acquired through the thorax. For radiation dose reduction, the following was used: automated exposure control, adjustment of mA and/or kV according to patient size. COMPARISON: [facility], CT, CT CHEST WO CON, 06/13/2019, 13:28. [facility], CT, CT CHEST ABD PEL W CON, 03/21/2019, 10:08. FINDINGS: Image quality: Excellent. Pulmonary arteries: Pulmonary arteries are normal in size, and demonstrate no intraluminal filling defects to suggest central pulmonary embolism. Lungs and pleura: There continue to be patchy areas of groundglass attenuation that is more pronounced within the bilateral lung bases, which has significantly increased in the interim. Areas of subpleural consolidation are identified. Intralobular septal thickening appears to be present. There is developing bronchiectasis. This appearance has progressed since the most recent examination from 06/13/19 and is completely new since the exam from 03/21/19. Mediastinum: Heart size is enlarged, without pericardial effusion. Coronary artery atherosclerosis is present. Multiple borderline prominent lymph nodes are identified within the hilar and mediastinal regions. The dominant lymph node is located within a right tracheobronchial region and measures up to approximately 1.0 cm in short axis, which is unchanged since previous exams. Thoracic aorta is normal in caliber and enhancement. There is moderate thickening of the wall of the esophagus with an associated moderate-sized hiatal hernia. A left-sided Port-A-Cath central line is again identified. Bones and chest wall: No suspicious bony lesions. Ribs and thoracic spine appear intact throughout. A T12 compression deformity appears unchanged. Thyroid gland is not enlarged or adequately evaluated. No axillary or supraclavicular adenopathy. Abdomen: Included portions of the upper abdomen are grossly unremarkable. However, there may be a very small diverticulum involving the 2nd portion of the duodenum. IMPRESSION: 1. No evidence of pulmonary emboli. 2. Abnormal groundglass attenuation and air space disease within the lungs has increased in the past 2 days and demonstrates increasing degree of areas of consolidation. While this appearance remains most suspicious for a developing organizing pneumonia or pulmonary fibrotic changes related to bleomycin treatment or other external factors, a superimposed infectious process or pulmonary edema cannot be excluded. 3. Cardiomegaly. 4. Wall thickening of the esophagus with an associated moderate-sized hiatal hernia. 5. Borderline prominent mediastinal and hilar lymph nodes are likely reactive to the process involving the lungs. Dictated by: David Cleary M.D. on 06/15/2019 at 14:05 Approved by: David Cleary M.D. on 06/15/2019 at 14:12 MDM Narrative Medical decision making narrative: 73-year-old male with a history of testicular cancer who is being treated with bleomycin. Patient developed shortness of breath and hypoxia less than 24 hours ago. He was started on prednisone and Levaquin outpatient. Patient presents to the emergency department for worsening symptoms. Patient exhibits hypoxia. Differential includes pneumonia versus fibrotic changes from bleomycin. Pneumonia is apparent on CT and x-ray, no antibiotics were initially given as patient took his Levaquin this morning and has tolerated P.O medications. There was increasing concern for PE due to hypoxia and history of cancer, patient's renal function was tolerable enough for a CT angio, CT was negative. Patient was admitted to DR Hopkins. <Andre Salazar MD - Last Filed: 06/16/19 10:37> Lab Data Labs: Lab Results 06/15/19 06/15/19 06/15/19 Range/Units 10:19 10:19 10:19 WBC 17.3 H (4.5-11.0) X10^3/uL RBC 2.77 L (4.5-5.9) X10^6/uL Hgb 8.5 L (13.5-17.5) g/dL Hct 24.6 L (41-53) % MCV 89.0 (80-100) fL MCH 30.7 (26-34) PG MCHC 34.5 (30-36) % RDW 13.9 (11.6-14.8) % Plt Count 489 H (150-400) X10^3/uL Neut % (Auto) 93.9 H (50-75) % Lymph % (Auto) 2.4 L (25-40) % Lea % (Auto) 3.5 (3-14) % Eos % (Auto) 0.0 L (2-4) % Baso % (Auto) 0.2 (0-2) % Neut # (Auto) 92774 H (8217-5221) /uL Lymph # (Auto) 400 L (0695-6886) /uL Lea # (Auto) 600 (0-900) /uL Eos # (Auto) 0 (0-450) /uL Baso # (Auto) 0 (0-100) /uL Sodium 135 L (137-145) mmol/L Potassium 4.3 (3.4-5.1) mmol/L Chloride 102 (98-107) mmol/L Carbon Dioxide 24 (22-32) mmol/L BUN 28 H (9-20) mg/dL Creatinine 0.90 (0.66-1.25) mg/dL Estimated GFR > 60.0 (>60) mL/min BUN/Creatinine Ratio 31.1 H (6-22) Glucose 131 H (80-110) mg/dL Lactate 3.4 H (0.7-2.1) mmol/L Calcium 8.6 (8.4-10.2) mg/dL Total Bilirubin 0.3 (0.2-1.3) mg/dL AST 50 (17-59) IU/L ALT 18 (<50) IU/L Alkaline Phosphatase 93 (38-126) U/L Total Creatine Kinase (55-170) U/L CK-MB (CK-2) CK-MB (CK-2) Rel Index Troponin I (0.01-0.034) ng/mL NT-Pro-B Natriuret Pep (<125) pg/mL Total Protein 5.7 L (6.3-8.2) g/dL Albumin 2.8 L (3.5-5.0) g/dL Globulin 2.9 (1.7-4.1) g/dL Albumin/Globulin Ratio 1.0 (1.0-2.8) Procalcitonin (<0.5) ng/mL Influenza A (RT-PCR) (NEGATIVE) Influenza B (RT-PCR) (NEGATIVE) 06/15/19 06/15/19 06/15/19 Range/Units 10:19 10:19 10:22 WBC (4.5-11.0) X10^3/uL RBC (4.5-5.9) X10^6/uL Hgb (13.5-17.5) g/dL Hct (41-53) % MCV (80-100) fL MCH (26-34) PG MCHC (30-36) % RDW (11.6-14.8) % Plt Count (150-400) X10^3/uL Neut % (Auto) (50-75) % Lymph % (Auto) (25-40) % Lea % (Auto) (3-14) % Eos % (Auto) (2-4) % Baso % (Auto) (0-2) % Neut # (Auto) (2700-5184) /uL Lymph # (Auto) (5233-0133) /uL Lea # (Auto) (0-900) /uL Eos # (Auto) (0-450) /uL Baso # (Auto) (0-100) /uL Sodium (137-145) mmol/L Potassium (3.4-5.1) mmol/L Chloride (98-107) mmol/L Carbon Dioxide (22-32) mmol/L BUN (9-20) mg/dL Creatinine (0.66-1.25) mg/dL Estimated GFR (>60) mL/min BUN/Creatinine Ratio (6-22) Glucose (80-110) mg/dL Lactate (0.7-2.1) mmol/L Calcium (8.4-10.2) mg/dL Total Bilirubin (0.2-1.3) mg/dL AST (17-59) IU/L ALT (<50) IU/L Alkaline Phosphatase (38-126) U/L Total Creatine Kinase 66 (55-170) U/L CK-MB (CK-2) TNP CK-MB (CK-2) Rel Index TNP Troponin I < 0.012 (0.01-0.034) ng/mL NT-Pro-B Natriuret Pep 3150 H (<125) pg/mL Total Protein (6.3-8.2) g/dL Albumin (3.5-5.0) g/dL Globulin (1.7-4.1) g/dL Albumin/Globulin Ratio (1.0-2.8) Procalcitonin 0.15 (<0.5) ng/mL Influenza A (RT-PCR) (NEGATIVE) Influenza B (RT-PCR) (NEGATIVE) 06/15/19 06/15/19 Range/Units 12:35 12:55 WBC (4.5-11.0) X10^3/uL RBC (4.5-5.9) X10^6/uL Hgb (13.5-17.5) g/dL Hct (41-53) % MCV (80-100) fL MCH (26-34) PG MCHC (30-36) % RDW (11.6-14.8) % Plt Count (150-400) X10^3/uL Neut % (Auto) (50-75) % Lymph % (Auto) (25-40) % Lea % (Auto) (3-14) % Eos % (Auto) (2-4) % Baso % (Auto) (0-2) % Neut # (Auto) (7017-3445) /uL Lymph # (Auto) (1633-9367) /uL Lea # (Auto) (0-900) /uL Eos # (Auto) (0-450) /uL Baso # (Auto) (0-100) /uL Sodium (137-145) mmol/L Potassium (3.4-5.1) mmol/L Chloride (98-107) mmol/L Carbon Dioxide (22-32) mmol/L BUN (9-20) mg/dL Creatinine (0.66-1.25) mg/dL Estimated GFR (>60) mL/min BUN/Creatinine Ratio (6-22) Glucose (80-110) mg/dL Lactate 2.2 H (0.7-2.1) mmol/L Calcium (8.4-10.2) mg/dL Total Bilirubin (0.2-1.3) mg/dL AST (17-59) IU/L ALT (<50) IU/L Alkaline Phosphatase (38-126) U/L Total Creatine Kinase (55-170) U/L CK-MB (CK-2) CK-MB (CK-2) Rel Index Troponin I (0.01-0.034) ng/mL NT-Pro-B Natriuret Pep (<125) pg/mL Total Protein (6.3-8.2) g/dL Albumin (3.5-5.0) g/dL Globulin (1.7-4.1) g/dL Albumin/Globulin Ratio (1.0-2.8) Procalcitonin (<0.5) ng/mL Influenza A (RT-PCR) Flu a negative (NEGATIVE) Influenza B (RT-PCR) Flu b negative (NEGATIVE) Urine Dip Bedside Urine Glucose Negative Bedside Urine Bilirubin - Negative Bedside Urine Ketone - Negative Urine Specific Closplint 1.025 Bedside Urine Occult Blood - Negative Bedside Urine pH 6.0 Bedside Urine Protein - Negative Bedside Urine Urobilinogen - Negative Bedside Urine Nitrite - Negative Bedside Urine Leukocytes - Negative Esterase Discharge Plan Departure Patient Disposition: Admitted As Inpatient Clinical Impression: Hypoxia, Seminoma of descended right testis Testicular cancer Qualifiers: Descendance of testis: descended Laterality: unspecified laterality Qualified Code(s): C62.10 - Malignant neoplasm of unspecified descended testis Pneumonia Qualifiers: Pneumonia type: due to unspecified organism Laterality: bilateral Lung location: lower lobe of lung Qualified Code(s): J18.9 - Pneumonia, unspecified organism Discharge Date/Time: 06/15/19 17:13 Referrals: Aaron Mesa MD [Primary Care Provider] - Admit Date/Time: 06/15/19 16:58 Admit Provider: Kenneth Hopkins
[2019-06-15 13:03] LABS: NT-proBNP (BNP-Adult 18+) 3150 pg/mL (<125)
[2019-06-15 13:19] LABS: Influenza A - CEPHEID Flu A NEGATIVE (NEGATIVE); Influenza B - CEPHEID Flu B NEGATIVE (NEGATIVE)
[2019-06-15 13:22] LABS: Lactate 2HR (Lactic Acid Rflx) 2.2 mmol/L (0.7-2.1)
[2019-06-15 13:23] LABS: Creatine Kinase 66 U/L (55-170)
[2019-06-15 13:35] LABS: Troponin I < 0.012 ng/mL (0.01-0.034)
[2019-06-15] MEDS: ALBUTEROL 2.5 MG/3 ML NEB (ADULT) INH (13:48)
--- NOTE | 2019-06-15 13:53 | PC.NURSE ---
portocath needle not power port acceptable, CT needed different needle for contrast, pt reaccessed with appropriate power needle
--- NOTE | 2019-06-15 14:50 | PC.NURSE ---
RT and PHLEBOTOMY MANAGER Jean notified that pt is dropping his sats to low 80s more often, PHLEBOTOMY MANAGER to see patient
--- NOTE | 2019-06-15 17:08 | PC.NURSE ---
report called to es on acute care, pt ready to transport
--- NOTE | 2019-06-15 17:50 | PC.NURSE ---
Pt admitted to Acute Care via stretcher. VSS. SBP 156. Pt denies pain. Oriented to room and floor. Preethi catch infusing with NS KVO.
[2019-06-15] MEDS: CEFTRIAXONE 1 GM/50 ML FROZ.PIGGY IV (18:28)
[2019-06-15] MEDS: predniSONE 20 MG TABLET 60 MG PO (18:29)
--- NOTE | 2019-06-15 18:33 | P.HP_ITS ---
History of Present Illness History of Present Illness Date Patient Seen: 06/15/19 Time Patient Seen: 17:30 Chief complaint: low saturation Narrative: Patient is a 73-year-old male with recently diagnosed metastatic testicular cancer, status post inguinal radical right orchiectomy on 02/23/2019, and started on BEP 04/16/2019. He started his 3rd cycle of BEP on 06/12/2019. His day 2 of 3rd cycle of BEP was canceled because patient was developing weakness, shortness of breath and cough. CT of chest without contrast showed peripheral interstitial changes. Dr. London saw patient for evaluation yesterday 06/14/2019 and noted patient did not appear in serious distress but was hypoxic with O2 sat 88% at room air and 79% with walking. He was concerned patient was developing pulmonary toxicity associated with bleomycin and possibly coexisting upper respiratory infection. His WBC was 26.2 although it could be partially elevated due to patient had received dexamethasone with his chemotherapy. Patient had home O2 arranged and was started on Zithromax and p rednisone 20 mg q.d. which he took the last doses this morning. However patient came into ER because of worsening shortness of breath and a nonproductive cough. His O2 sat was 84% on 4 L nasal cannula. A chest CTA did not show acute pulmonary embolism but there are areas of increasing consolidation in the lower lungs as well as developing bronchiectasis compared to CT from 06/13/2019. Patient is therefore being admitted for worsening acute hypoxic respiratory failure associated with lung toxicity due to bleomycin and possible superimposed pneumonia. Patient History Medical History Hyperlipidemia (Acute) Hypertension (Acute) Hypothyroidism (Acute) Stroke (Acute) Testicular cancer (Acute) Surgical History History of neck surgery (Acute ~1986) Hx of unilateral orchiectomy (Acute 02/23/19) Family & Social History Family History Mother Alzheimer disease Father Heart disease Social History: household members other Prior Living Arrangements House Safety & Behavioral: Feels Safe in Current Yes Environment Been Physically Hurt or No Threatened By a Person Suicidal Ideation Description None Tobacco & Substance use: Tobacco type cigarettes Smoking Status Former smoker alcohol intake former alcohol intake frequency 0-2 drinks per day Substance Use Type does not use Meds Home Medications and Allergies Home Medications Medication Instructions Recorded Confirmed Type acetaminophen [Tylenol Extra 1,000 mg PO QAM 03/20/19 06/15/19 History Strength] diphenhydramine-acetaminophen 2 tab PO BEDTIME PRN 03/20/19 06/15/19 History [Tylenol PM Extra Strength] levothyroxine [Synthroid] 150 mcg PO DAILY 03/20/19 06/15/19 History loratadine 10 mg PO DAILY PRN 03/20/19 06/15/19 History multivitamin 1 cap PO DAILY 03/20/19 06/15/19 History vitamin B complex 1 tab PO DAILY 03/20/19 06/15/19 History metoprolol succinate 25 mg PO DAILY 05/25/19 06/15/19 History potassium chloride 20 meq PO DAILY #7 ea 05/29/19 06/15/19 Rx lorazepam [Ativan] 0.5 mg PO Q6H PRN #60 tab 06/05/19 06/15/19 Rx prochlorperazine maleate 10 mg PO Q6H PRN #90 tab 06/05/19 06/15/19 Rx [Compazine] aspirin 162 mg PO DAILY 06/15/19 06/15/19 History azithromycin See Rx Instructions .ROUTE .COMPLEX 06/15/19 06/15/19 History prednisone 20 mg PO DAILYX5 06/15/19 06/15/19 History Allergies Allergy/AdvReac Type Severity Reaction Status Date / Time No Known Drug Allergies Allergy Verified 06/15/19 10:09 Review of Systems Review of Systems ROS Unobtainable: All systems reviewed & are unremarkable except as noted in HPI and below Exam Vital Signs (past 8 hours): - 06/15/19 11:34 06/15/19 13:00 06/15/19 13:49 Temperature Pulse Rate 67 86 83 Respiratory Rate 22 23 29 H Blood Pressure Blood Pressure [Right Arm] 163/77 H 140/68 Pulse Oximetry 98 96 91 06/15/19 14:38 06/15/19 14:46 06/15/19 15:33 Temperature Pulse Rate 96 H 90 Respiratory Rate 24 27 H Blood Pressure Blood Pressure [Right Arm] 140/67 140/67 Pulse Oximetry 90 L 84 L 94 06/15/19 16:53 06/15/19 17:34 Temperature 98.2 F Pulse Rate 94 H 95 H Respiratory Rate 25 H 17 Blood Pressure 156/89 H Blood Pressure [Right Arm] 127/65 Pulse Oximetry 92 94 Oxygen Delivery Method Room Air Oxygen Flow Rate 4 Narrative Exam Narrative: GENERAL: This is an alert but ill-appearing male. HEAD: Atraumatic. Normocephalic. EYES: Pupils equal, round and reactive. Extraocular motions intact. No scleral icterus. No injection or drainage. OROPHARYNX: moist mucosa NECK: Trachea midline. No JVD or lymphadenopathy. CARDIOVASCULAR: Regular rate and rhythm without murmurs, gallops, or rubs. RESPIRATORY: There is diminished breath sounds and bilateral lower lobe coarse crackles, no wheeze GASTROINTESTINAL: Abdomen nondistended, soft, non-tender. No hepato- splenomegaly, or palpable masses. EXTREMITIES: No pretibial edema. NEUROLOGICAL: Alert, well oriented, speech is intact, normal bilateral upper and lower extremity strength SKIN: warm, dry, no rash Objective Labs Result Diagrams: 06/15/19 10:19 06/15/19 10:19 Labs: Laboratory Results - last 24 hr 06/15/19 06/15/19 06/15/19 10:19 10:19 10:19 WBC 17.3 H RBC 2.77 L Hgb 8.5 L Hct 24.6 L MCV 89.0 MCH 30.7 MCHC 34.5 RDW 13.9 Plt Count 489 H Neut % (Auto) 93.9 H Lymph % (Auto) 2.4 L [place] % (Auto) 3.5 Eos % (Auto) 0.0 L Baso % (Auto) 0.2 Neut # (Auto) 37005 H Lymph # (Auto) 400 L [place] # (Auto) 600 Eos # (Auto) 0 Baso # (Auto) 0 Sodium 135 L Potassium 4.3 Chloride 102 Carbon Dioxide 24 BUN 28 H Creatinine 0.90 Estimated GFR > 60.0 BUN/Creatinine Ratio 31.1 H Glucose 131 H Lactate 3.4 H Calcium 8.6 Total Bilirubin 0.3 AST 50 ALT 18 Alkaline Phosphatase 93 Total Creatine Kinase CK-MB (CK-2) CK-MB (CK-2) Rel Index Troponin I NT-Pro-B Natriuret Pep Total Protein 5.7 L Albumin 2.8 L Globulin 2.9 Albumin/Globulin Ratio 1.0 Procalcitonin Influenza A (RT-PCR) Influenza B (RT-PCR) 06/15/19 06/15/19 06/15/19 10:19 10:19 10:22 WBC RBC Hgb Hct MCV MCH MCHC RDW Plt Count Neut % (Auto) Lymph % (Auto) [place] % (Auto) Eos % (Auto) Baso % (Auto) Neut # (Auto) Lymph # (Auto) [place] # (Auto) Eos # (Auto) Baso # (Auto) Sodium Potassium Chloride Carbon Dioxide BUN Creatinine Estimated GFR BUN/Creatinine Ratio Glucose Lactate Calcium Total Bilirubin AST ALT Alkaline Phosphatase Total Creatine Kinase 66 CK-MB (CK-2) TNP CK-MB (CK-2) Rel Index TNP Troponin I < 0.012 NT-Pro-B Natriuret Pep 3150 H Total Protein Albumin Globulin Albumin/Globulin Ratio Procalcitonin 0.15 Influenza A (RT-PCR) Influenza B (RT-PCR) 06/15/19 06/15/19 12:35 12:55 WBC RBC Hgb Hct MCV MCH MCHC RDW Plt Count Neut % (Auto) Lymph % (Auto) [place] % (Auto) Eos % (Auto) Baso % (Auto) Neut # (Auto) Lymph # (Auto) [place] # (Auto) Eos # (Auto) Baso # (Auto) Sodium Potassium Chloride Carbon Dioxide BUN Creatinine Estimated GFR BUN/Creatinine Ratio Glucose Lactate 2.2 H Calcium Total Bilirubin AST ALT Alkaline Phosphatase Total Creatine Kinase CK-MB (CK-2) CK-MB (CK-2) Rel Index Troponin I NT-Pro-B Natriuret Pep Total Protein Albumin Globulin Albumin/Globulin Ratio Procalcitonin Influenza A (RT-PCR) Flu a negative Influenza B (RT-PCR) Flu b negative Assessment & Plan Assessment & Plan narrative: Patient is a 73-year-old male with recently diagnosed metastatic testicular cancer, status post inguinal radical right orchiectomy on 02/23/2019, and started on BEP 04/16/2019. He started his 3rd cycle of BEP on 06/12/2019. His day 2 of 3rd cycle of BEP was canceled because patient was developing weakness, shortness of breath and cough.1 1. Acute hypoxic respiratory failure, present on admission -patient with O2 sat 84% on 4 L nasal cannula -etiology concerning for bleomycin lung toxicity and superimposed pneumonia -provide supplemental O2 and treat underlying etiologies -elevated NT proBNP 3150 but patient's clinical presentation is not consistent with CHF and echo not needed at this time 2. Bleomycin lung toxicity -CT scan with bilateral lower lobe ground-glass infiltrate -patient's onset of symptoms correlate with initiation of BEP -start prednisone 60 mg daily to taper as directed by Oncology 3. Bacterial pneumonia -he may have superimposed pneumonia based on rapidly worsening CT appearance -WBC 17.3 improved from 20/6 0.2 day prior -patient had elevated lactate 3.4 improved to 2.2 after hydration -received first 2 doses of Zithromax as outpatient -Rocephin 1 g IV daily and continue Zithromax 250 mg IV daily for broad-spectrum coverage 4. Anemia -admission hemoglobin 8.5, hematocrit 24.6 -patient is normotensive and tolerating the anemia -monitor CBC and transfuse if needed 5. History of paroxysmal atrial fibrillation -currently in sinus rhythm -continue metoprolol succinate 25 mg q.d. 6. Hypothyroidism -continue patient's levothyroxine 150 mcg q.d. Patient admitted to acute inpatient service with expected greater than 2 midnight stay due to severity of respiratory failure. Quality VTE Deep Vein Thrombosis/Pulmonary Embolism Present on Admission: No
--- NOTE | 2019-06-15 23:12 | PC.NURSE ---
Evening Shift Note Patient with oxygen saturation of 60% after being turned in bed for brief change. Patient with labored breathing, tachypneic and tachycardic, all other VSS. Patient switched to hi-flow NC at 10L, RT called to bedside. RT at bedside and patient switched to heated hi-flow 15L, Fio2 90%, O2 sats sustaining hi 80's. Patient switched to back to hi-flow NC at 15L and patient instructed to deep breath, O2 sats increased to 93% MD updated. Orders for tele, will continue to monitor.
[2019-06-16] VITALS (12 sets, daily range): BP systolic 116–145; BP diastolic 58–74; PULSE 71–103; RESP 16–18; TEMP 36.5–37.1; O2SAT 89–98; BMI 24.3
[2019-06-16 06:25] LABS: Add Manual Diff / Slide Review NO; Basophils Absolute Auto 0 /uL (0-100); Basophils Percent Auto 0.1 % (0-2); Eosinophils Absolute Auto 0 /uL (0-450); Hematocrit 22.2 % (41-53); Hemoglobin 7.6 g/dL (13.5-17.5); Lymphocytes Absolute Auto 400 /uL (1100-4500); Lymphocytes Percent Auto 2.7 % (25-40); Mean Corpuscular HGB Conc 34.3 % (30-36); Mean Corpuscular Hemoglobin 30.6 PG (26-34); Mean Corpuscular Volume 89.1 fL (80-100); Monocytes Absolute Auto 200 /uL (0-900); Monocytes Percent Auto 1.5 % (3-14); Neutrophils Absolute Auto 14200 /uL (1500-7000); Neutrophils Percent Auto 95.7 % (50-75); Platelet Count 335 X10^3/uL (150-400); Red Blood Cell Count 2.49 X10^6/uL (4.5-5.9); Red Cell Distribution Width 13.8 % (11.6-14.8); White Blood Cell Count 14.9 X10^3/uL (4.5-11.0)
[2019-06-16 06:35] LABS: Blood Urea Nitrogen 20 mg/dL (9-20); Calcium 8.3 mg/dL (8.4-10.2); Carbon Dioxide 29 mmol/L (22-32); Chloride 99 mmol/L (98-107); Estimated Glomerular Filt Rate > 60.0 mL/min (>60); Glucose 117 mg/dL (80-110); HEMOLYSIS < 15 (0-50); Potassium 4.2 mmol/L (3.4-5.1); Sodium 132 mmol/L (137-145)
[2019-06-16 06:52] LABS: Procalcitonin 0.13 ng/mL (<0.5)
[2019-06-16] MEDS: LEVOTHYROXINE 150 MCG TABLET PO (08:13)
[2019-06-16] MEDS: ENOXAPARIN 40 MG/0.4 ML SYRINGE SUBCUT (08:13)
[2019-06-16] MEDS: ASPIRIN EC 81 MG TABLET 162 MG PO (08:13)
[2019-06-16] MEDS: POTASSIUM CHLORIDE 20 MEQ TAB PO (08:13)
[2019-06-16] MEDS: METOPROLOL ER 25 MG TABLET PO (08:13)
[2019-06-16] MEDS: predniSONE 20 MG TABLET 60 MG PO (08:17)
[2019-06-16] MEDS: AZITHROMYCIN 250 MG in DEXTROSE 5% IN WATER 250 ML IV ×2 (08:18→11:12)
--- NOTE | 2019-06-16 10:18 | DI.ECHO.S_ITS ---
[facility]---------+ [facility] +---------+ : : [address] : : : : [place] : : : : [id number] : : : : Phone: [phone]+ Echocardiogram Report + + :Name: TUNDE BELLO Study Date: 06/17/2019 Height: 70 in : :[facility] Exam Location: [facility] Weight: 164 lb : : Gender: Male BSA: 1.9 m2 : :: 1945 Age: 73 yrs BP: 145/65 mmHg: :Reason For Study: Respiratory failure : :Ordering Physician: Homer : :Hospitalist Performed By: Virginia Page : :Referring: EDSON JETER : + + Interpretation Summary The left ventricle is normal in size and wall thickness. The left ventricle is hyperdynamic. The ejection fraction is estimated to be 70-75%. No significant change since prior study. There are no obvious focal wall motion abnormalities noted but poor endocardial definition reduces the sensitivity for the detection of such. There is a significant dyssynchronous contraction pattern, consistent with a conduction abnormality. The right ventricle is normal in size and function. The right ventricular systolic pressure is estimated to be at least 50 mmHg based on an estimated right atrial pressure of 3 mm Hg. The left atrium is mildly dilated. The right atrium grossly appears normal in size. There is mild to moderate mitral regurgitation. MR has slightly decreased since prior study. There is no other significant valvular heart disease. The aortic root is normal size. Procedure: A two-dimensional transthoracic echocardiogram with color flow and Doppler was performed. The study quality was technically adequate. Comparison is made with the echocardiogram of 05/16/2019. The suprasternal notch views were difficult to obtain and are suboptimal in quality. The heart rate ranged between 76-135 bpm during the study. Left Ventricle: The left ventricle is normal in size and wall thickness. The left ventricle is hyperdynamic. The ejection fraction is estimated to be 70- 75%. There are no obvious focal wall motion abnormalities noted but poor endocardial definition reduces the sensitivity for the detection of such. There is a significant dyssynchronous contraction pattern, consistent with a conduction abnormality. Right Ventricle: The right ventricle is normal in size and function. Atria: The left atrium is mildly dilated. The right atrium grossly appears normal in size. There is no Doppler evidence for an interatrial shunt. Mitral Valve: The mitral valve leaflets appear mildly thickened, but open well. There is mild to moderate mitral regurgitation. Aortic Valve: The aortic valve is trileaflet. The aortic valve opens well. The aortic valve is mildly calcified. No aortic regurgitation is present. Tricuspid Valve: The tricuspid valve is normal in structure and function. There is mild tricuspid regurgitation. The right ventricular systolic pressure is estimated to be at least 50 mmHg based on an estimated right atrial pressure of 3 mm Hg. Pulmonic Valve: The pulmonic valve is not well seen, but is grossly normal. There is trace pulmonic regurgitation. There is no other significant valvular heart disease. Great Vessels: The aortic root is normal size. The ascending aorta could not be visualized. The pulmonary artery is not well visualized, but is probably normal size. The IVC is of normal diameter and collapses greater than 50% with a sniff. This suggests a low right atrial pressure of 3 mm Hg. Pericardium/ Pleura There is no pericardial effusion. There is no pleural effusion. MMode/2D Measurements & Calculations LVIDd: 5.0 cm LVOT diam: 2.2 cm LVIDs: 3.4 cm Ao root diam: 3.7 cm FS: 32.1 % IVSd: 0.70 cm LVPWd: 0.72 cm LV [place]. diameter/BSA (cm/m^2): 2.6 LV sys. diameter/BSA (cm/m^2): 1.8 LA A2 area: 20.1 cm2 RA long axis: 6.1 cm LA A4 area: 29.1 cm2 RA area: 17.8 cm2 LA length (vol): 7.8 cm RA vol: 44.1 ml LA vol: 63.7 ml RA : 23.0 ml/m2 LA vol index: 33.2 ml/m2 IVC diam: 2.1 cm RVD1 (basal): 4.2 cm RVD2 (mid): 4.4 cm TAPSE: 2.1 cm Doppler Measurements & Calculations Ao V2 max: 135.0 cm/sec LVOT Max Zach: 114.2 cm/sec Ao V2 mean: 87.1 cm/sec LV V1 max P.3 mmHg Ao max P.3 mmHg LV V1 VTI: 19.9 cm Ao mean P.5 mmHg MARCIAL(I,D): 2.9 cm2 Ao V2 VTI: 26.0 cm MARCIAL(V,D): 3.2 cm2 sev ratio: 0.77 MARCIAL indexed to BSA (cm^2/m^2): 1.5 TR max zach: 341.2 cm/sec SV(LVOT): 74.9 ml TR max P.7 mmHg PA V2 max: 70.3 cm/sec PA V2 mean: 45.3 cm/sec PA mean P.93 mmHg PA Accel Time: 0.07 sec Reading Physician:04:23 PM
[2019-06-16] MEDS: BENZOCAINE/MENTHOL 1 LOZ PKT 1 EACH PO ×4 (11:12→19:49)
--- NOTE | 2019-06-16 12:18 | PM.PN.1 ---
Subjective Subjective Date Patient Seen: 06/16/19 Interval history: Patient is a 73-year-old male with recently diagnosed metastatic testicular cancer, status post inguinal radical right orchiectomy on 02/23/2019, and started on BEP 04/16/2019. He started his 3rd cycle of BEP on 06/12/2019. His day 2 of 3rd cycle of BEP was canceled because patient was developing weakness, shortness of breath and cough. Patient then presented to ER on 06/15 due to worsening dyspnea, cough and hypoxia with CT showing worsening of pulmonary airspace infiltrates. Patient notes persistent dry cough but states his breathing is a little better. He has been afebrile. Exam Vital Signs (past 8 hours): - 06/16/19 05:25 06/16/19 08:30 Temperature 98.1 F 97.9 F Pulse Rate 79 103 H Respiratory Rate 18 16 Blood Pressure 122/64 119/63 Pulse Oximetry 95 91 Oxygen Delivery Method High Flow Nasal Cannula Oxygen Flow Rate 13 Objective Labs Result Diagrams: 06/16/19 06:10 06/16/19 06:10 Labs: Laboratory Results - last 24 hr 06/15/19 06/15/19 06/15/19 10:19 10:19 10:22 WBC RBC Hgb Hct MCV MCH MCHC RDW Plt Count Neut % (Auto) Lymph % (Auto) [place] % (Auto) Eos % (Auto) Baso % (Auto) Neut # (Auto) Lymph # (Auto) [place] # (Auto) Eos # (Auto) Baso # (Auto) Sodium Potassium Chloride Carbon Dioxide BUN Creatinine Estimated GFR BUN/Creatinine Ratio Glucose Lactate Calcium Total Creatine Kinase 66 CK-MB (CK-2) TNP CK-MB (CK-2) Rel Index TNP Troponin I < 0.012 NT-Pro-B Natriuret Pep 3150 H Procalcitonin 0.15 Influenza A (RT-PCR) Influenza B (RT-PCR) 06/15/19 06/15/19 06/16/19 12:35 12:55 05:30 WBC RBC Hgb Hct MCV MCH MCHC RDW Plt Count Neut % (Auto) Lymph % (Auto) [place] % (Auto) Eos % (Auto) Baso % (Auto) Neut # (Auto) Lymph # (Auto) [place] # (Auto) Eos # (Auto) Baso # (Auto) Sodium Potassium Chloride Carbon Dioxide BUN Creatinine Estimated GFR BUN/Creatinine Ratio Glucose Lactate 2.2 H Calcium Total Creatine Kinase CK-MB (CK-2) CK-MB (CK-2) Rel Index Troponin I NT-Pro-B Natriuret Pep Procalcitonin 0.13 Influenza A (RT-PCR) Flu a negative Influenza B (RT-PCR) Flu b negative 06/16/19 06/16/19 06:10 06:10 WBC 14.9 H RBC 2.49 L Hgb 7.6 L Hct 22.2 L MCV 89.1 MCH 30.6 MCHC 34.3 RDW 13.8 Plt Count 335 Neut % (Auto) 95.7 H Lymph % (Auto) 2.7 L [place] % (Auto) 1.5 L Eos % (Auto) 0.0 L Baso % (Auto) 0.1 Neut # (Auto) 53928 H Lymph # (Auto) 400 L [place] # (Auto) 200 Eos # (Auto) 0 Baso # (Auto) 0 Sodium 132 L Potassium 4.2 Chloride 99 Carbon Dioxide 29 BUN 20 Creatinine 0.80 Estimated GFR > 60.0 BUN/Creatinine Ratio 25.0 H Glucose 117 H Lactate Calcium 8.3 L Total Creatine Kinase CK-MB (CK-2) CK-MB (CK-2) Rel Index Troponin I NT-Pro-B Natriuret Pep Procalcitonin Influenza A (RT-PCR) Influenza B (RT-PCR) Assessment & Plan Assessment & Plan narrative: Patient is a 73-year-old male with recently diagnosed metastatic testicular cancer, status post inguinal radical right orchiectomy on 02/23/2019, and started on BEP 04/16/2019. He started his 3rd cycle of BEP on 06/12/2019. His day 2 of 3rd cycle of BEP was canceled because patient was developing weakness, shortness of breath and cough. Patient then presented to ER on 06/15 due to worsening dyspnea, cough and hypoxia with CT showing worsening of pulmonary airspace infiltrates. 1. Acute hypoxic respiratory failure, present on admission -patient currently on 13 L high-flow cannula with sats 91-95%, presented initially with O2 sat 84% on 4 L nasal cannula -etiology concerning for bleomycin lung toxicity and superimposed pneumonia -provide supplemental O2 and treat underlying etiologies -elevated NT proBNP 3150 but patient's clinical presentation is not consistent with CHF -TTE ordered to more definitively evaluate cardiac status 2. Bleomycin lung toxicity -CT scan with bilateral lower lobe ground-glass infiltrate, increasing consolidation since CT 06/14/2019 -patient's onset of symptoms correlate with initiation of BEP -continue prednisone 60 mg daily to taper as directed by Oncology 3. Bacterial pneumonia -he may have superimposed pneumonia based on rapidly worsening CT appearance -last WBC 14.9 improved from 26.2 on 06/15 -patient had elevated lactate 3.4 improved to 2.2 after hydration -received first 2 doses of Zithromax as outpatient -continue Rocephin 1 g IV daily and Zithromax 500 mg IV daily for broad-spectrum coverage 4. Anemia -current hemoglobin 7.6, hematocrit 22.2 versus admission hemoglobin 8.5, hematocrit 24.6 -patient seems to be tolerating the anemia -monitor CBC and transfuse if counts keep dropping 5. History of paroxysmal atrial fibrillation -this was associated with electrolyte disturbances on prior hospitalization -currently in sinus rhythm -continue metoprolol succinate 25 mg q.d. 6. Hypothyroidism -continue patient's levothyroxine 150 mcg q.d. Quality VTE Deep Vein Thrombosis/Pulmonary Embolism Present on Admission: No
--- NOTE | 2019-06-16 12:30 | CM.DANOTE ---
Addendum entered by Kimberli Cowan LPN 06/16/19 16:14: Have not been able to see pt today as planned. Due to lateness of hour will defer to DCP team on for the weekend to follow up. Original Note: Discharge Planning/Care Management Case received, EMR reviewed. Discussed in Team Rounds. Pt is a 73 year old male who admitted yesterday late afternoon to care of hospitalist team. PCP: Aaron Mesa Oncology care: [facility] Saw Dr. London on 06/14/19 and has been with the Onology center for a few months. Pt has a referral into [facility] Palliative care program: place by oncology TONY Sanchez on 06/13. Payer: Medicare and of Life Admission status: INPT: Confirmed by UR ARINA Bowman. P: check in with pt to continue the bedside DCP assessment process. CM Discharge Assessment Start: 06/16/19 12:23 Freq: Status: Active Protocol: Document 06/16/19 12:23 ITV (Rec: 06/16/19 12:30 ITV [id number]) Discharge Planning Assessment Advance Directives? Yes History Provided By Medical Record Prior Living Arrangements House Community Services used prior to Social Work admission: Comment Sees TEMPLATE WORKER/Navigator Heidi Watkins at [facility]/ Last seen: 06/13/19. VM is left for her re pt's presence in hospital so that she can follow prn in partnership with the CM/DCP team. DME Already Rented / Owned Oxygen Comment just set up by oncology center . Review Status In Process
--- NOTE | 2019-06-16 14:12 | PC.NURSE ---
Patient alert and oriented this shift. Chest port dressing CDI. Patient continues to need supplemental oxygen. Patient reports PRN lozenges helpful for throat discomfort. Care is ongoing.
--- NOTE | 2019-06-16 17:02 | DIET.PN ---
Dietary Progress Note Assessment: 73y M recently dx c met testicular Ca admitted for weakness, SOB, cough, diarrhea. Pt reports sudden drop in appetite and associated wt loss. Usually eats one meal per day (breakfast) then not hungry rest of day. HT: 175.2cm WT: 74.6kg UBW: 180# BMI: 24.2 Labs: Na 132 L, hgb 7.6 L MNA: 88 Dylan: 21 Nutrition Diagnosis: Severe Acute PCM r/t loss of appetite secondary to met testicular Ca aeb 7% unintentional wt loss in 4w, eats one meal per day, pt reports weakness, saggy skin throughout indicative of sudden wt loss. Interventions: 1. Recc ONS vanilla protein milkshake daily, ONS ensure with meal trays to support PCM Diet Order: general EER: 2200kcal, 100g PRO (1.3g/kg per maln), 2.3L fluids Monitoring/Evaluations: POs, ONS tolerance
[2019-06-16] MEDS: CEFTRIAXONE 1 GM/50 ML FROZ.PIGGY IV (18:03)
--- NOTE | 2019-06-16 22:56 | PC.NURSE ---
Pt is a&o x3, pleasant and cooperative at times. Patient has only had 100ml UOP on guille shift, provider is aware. No action to be taken at this time, only to cont. to monitor patient. Mult. opportunities have been given to patient to get up and try to pee in urinal standing up and asked to check brief to change, in case of incont. patient has refused to do both of these interventions.
[2019-06-17] VITALS (22 sets, daily range): BP systolic 119–162; BP diastolic 54–88; PULSE 82–110; RESP 15–36; TEMP 36.2–37.1; O2SAT 87–100
--- NOTE | 2019-06-17 02:50 | PC.NURSE ---
Patient dangled at bedside at 0015 to use the urinal and oxygen saturation dropped between 75-80% on 15L O2 per nasal cannula. Respiratory therapy notified. Josefina, RT. put the patient on 15L heated high flow with an FI02 of 90%. JUSTINE Aguilera notified. Patient is maintaing oxygen saturation between 86-90%. Blood gas ordered today 06/17/2019 at 0600.
[2019-06-17 05:43] LABS: Add Manual Diff / Slide Review NO; Basophils Absolute Auto 0 /uL (0-100); Basophils Percent Auto 0.1 % (0-2); Eosinophils Absolute Auto 0 /uL (0-450); Hematocrit 23.8 % (41-53); Hemoglobin 8.1 g/dL (13.5-17.5); Lymphocytes Absolute Auto 800 /uL (1100-4500); Lymphocytes Percent Auto 3.6 % (25-40); Mean Corpuscular HGB Conc 33.9 % (30-36); Mean Corpuscular Hemoglobin 30.1 PG (26-34); Mean Corpuscular Volume 88.7 fL (80-100); Monocytes Absolute Auto 400 /uL (0-900); Neutrophils Absolute Auto 19800 /uL (1500-7000); Neutrophils Percent Auto 94.3 % (50-75); Platelet Count 314 X10^3/uL (150-400); Red Blood Cell Count 2.68 X10^6/uL (4.5-5.9); Red Cell Distribution Width 13.6 % (11.6-14.8)
[2019-06-17 06:31] LABS: Fractionated Inspired Oxygen 21; Oxygen Saturation ABG 85 % (95-100); PCO2 ABG 38.1 mmHg (35-45); PO2 ABG 46 mmHg (80-100); TCO2 ABG 30 mmol/L (21-31); pH ABG 7.49 (7.35-7.45)
[2019-06-17 06:32] LABS: HCO3 ABG 29 mmol/L (22-26)
--- NOTE | 2019-06-17 08:31 | PC.NURSE ---
Addendum entered by Fang Landis R.N. 06/17/19 09:55: Alarm going off in room, pt had removed HHFNC. On continuous pulse ox, desatted to low 50's within about 1 min. Recovered to 80's within about 2 min of putting O2 back on. Pt covinced he needs to get out of bed, will not sit in bed, states needs to use the urinal at the edge of the bed. Explained he can't move with the breathing issues he's having. RT present as well. Discussed with MD and will transfer to ICU for closer monitoring. Pt taken to room 230. Report given to ARINA Perry. Transferred all pt belongings with him. Original Note: Day Shift Pt reports he feels that his breathing is actually improving. He states he feels like it is easier to breath. Able to use urinal in bed, declined sotelo placement. HHFNC in place at RT settings. Will continue to monitor.
--- NOTE | 2019-06-17 09:46 | DI.RAD.S_ITS ---
PROCEDURE: XR CHEST 1V INDICATIONS: worsening short of breath/confusion TECHNIQUE: One view of the chest was acquired. COMPARISON: [facility], CT, CT ANGIO CHEST PE PROTOCOL, 06/15/2019, 14:19. [facility], CR, XR CHEST 2V, 06/15/2019, 10:20. FINDINGS: Surgical changes and devices: There is a stable left-sided chest port. Cervical spine fixation hardware is seen. Lungs and pleura: Lung volumes are low. Blunting of the costophrenic angles can be seen. Interstitial infiltrates are seen, primarily centrally and inferiorly. Mediastinum: The cardiac contours are obscured. The heart size is believed to be moderately enlarged. Atherosclerotic calcification of the aortic arch is noted. Bones and chest wall: No suspicious bony lesions. Age-appropriate bony degenerative changes are seen. Overlying soft tissues appear unremarkable. IMPRESSION: Concern is raised for congestive heart failure, with findings of: cardiomegaly, interstitial infiltrates, and likely small bilateral pleural effusions. Please correlate with physical examination findings, patient presentation, and laboratory values. Dictated by: Matt Kang M.D. on 06/17/2019 at 9:39 Approved by: Matt Kang M.D. on 06/17/2019 at 9:43
[2019-06-17] MEDS: LORazepam 2 MG/ML INJ 0.5 MG IV ×2 (10:15→20:31)
[2019-06-17] MEDS: LEVOTHYROXINE 150 MCG TABLET PO (10:40)
[2019-06-17] MEDS: ASPIRIN EC 81 MG TABLET 162 MG PO (10:40)
[2019-06-17] MEDS: ENOXAPARIN 40 MG/0.4 ML SYRINGE SUBCUT (10:40)
[2019-06-17] MEDS: METOPROLOL ER 25 MG TABLET PO (10:40)
[2019-06-17] MEDS: methylPREDNISolone 125 MG/2 ML VIAL 60 MG IV (10:40)
--- NOTE | 2019-06-17 11:04 | PC.NURSE ---
Addendum entered by Vicky Carey R.N. 06/17/19 14:39: tolerating blood transfusion well- visiting with sister in law and remains somewhat bewildered rather than confused r/t care and change in room- pt remains full code and on high flow ( heated ) oxygen- lungs diminished - pt received 20mg iv lasix between units of blood and continues to receive iv abx Original Note: PT TRANSFERRED TO ROOM 230 FROM 110- FOR INCREASED WORK LOAD OF BREATHING WELL INCREASED HR WITH FREQUENT PVC- PT IS ALERT AND MOSTLY ORIENTED - HE IS AGREEABLE TO RECEIVE 2U RBC AND HAVE MENA CATHETER PLACED- TELEPHONE CALL TO INFORM MARCO ( SITER IN LAW) RE: PT MOVE TO ICU- ALL OF HER QUESTIONS ANSWERED AT THIS TIME
--- NOTE | 2019-06-17 11:23 | CM.DPC ---
Addendum entered by Deb Albert R.N. 06/17/19 15:56: Spoke to Dr. Hopkins regarding patient's brother's concerns. Gave him Gilberto's phone number, he will give him a call. Brother did state that he is medical POA of patient. Addendum entered by Deb Albert R.N. 06/17/19 15:47: Patient's son, Gilberto Zambrano called regarding patient. He is calling from [place]. He stated that he will not be here until Wed or . Discussed condition, and explained some options for patient before going home, such as skilled rehab. Asked patient's brother if he is familiar with finances of brother regarding any private caregiving at home, and he stated he is not. Brother is concerned about his chemo, since everytime he receives it, he becomes weaker, and can barely stand. He also mentioned after his chemo, he is not eating and drinking like he should be. Asked brother if he has spoken with his oncologist regarding concerns, and stated he has not. Brother is hopeful that he can speak to hospitalist. Let brother know that patient may be working with P.T. before going home, for they are also part of the team that can make recommendations. Discussed Medicare, and skilled coverage. Had to explain to brother that Medicare does not cover home caregiving. Can see if hospitalist can call brother, but will need patient's permission. Original Note: DCP Cont: Patient sleeping, was moved to ICU unit secondary to respiratory failure. Called patient's sister, Alberto Zambrano, she is only newsperson, and she lives in [place] as well, to enable getting baseline health and living situation information. Spoke to alberto, introduced self and role. Alberto has been taking patient to his oncology appointments here at [facility], for patient no longer drives. She mentioned that patient had recently been getting weaker, and did have a recent fall at home. He just started using home oxygen, for his saturations have continued to drop. She was taking him to oncology last week, daily, to monitor his condition and respirations. Asked sister if he was involved in his appointments, if he went into room with patient. She mentioned that sometimes she would go in, but most of the time he would go in on his own. Confirmed that patient lives alone, and that he has a brother named Gilberto who lives in [place]. Asked Alberto if she was POA, or if he has POA. She stated that Gilberto is the POA. She gave his phone number which is: [phone]. She mentioned that he should be here tomorrow pm, for due to weather, he was able to come today. Asked sister if patient had any financial means if he needs personal caregivers at some point. Stated his brother should have that information. Also, patient may need skilled rehab before going home, but will be determined on how he does here in hospital. According to recent note, Heidi ADDICTIONS THERAPIST, has started [facility] referral. Will need to follow up with them as well, but it is anticipated that patient will be here for a few more days, since he is not yet medically stable. P: DCP to continue to follow closely, and see how patient progresses here in hospital Deb Albert RN/Assistant Drafter
--- NOTE | 2019-06-17 12:12 | PM.PN.1 ---
Subjective Subjective Date Patient Seen: 06/17/19 Interval history: Patient is a 73-year-old male with recently diagnosed metastatic testicular cancer, status post inguinal radical right orchiectomy on 02/23/2019, and started on BEP 04/16/2019. He started his 3rd cycle of BEP on 06/12/2019. His day 2 of 3rd cycle of BEP was canceled because patient was developing weakness, shortness of breath and cough. Patient then presented to ER on 06/15 due to worsening dyspnea, cough and hypoxia with CT showing worsening of pulmonary airspace infiltrates. Patient is on 15 L high-flow nasal cannula since yesterday morning. Overnight, h was having frequent desaturationsto the 70s and has been getting more anxious. While in the room talking to him, his saturation was in the 70s but after 5 minutes or so bumped up to the 90s for a while and then back down to low 80s. Per nursing staff, he desaturates with almost any movement. Exam Vital Signs (past 8 hours): - 06/17/19 05:05 06/17/19 06:00 06/17/19 07:00 Temperature 98.5 F 97.7 F Pulse Rate 88 103 H Respiratory Rate 19 18 Blood Pressure 144/82 H 148/54 H Pulse Oximetry 87 L 87 L 06/17/19 08:25 06/17/19 09:50 06/17/19 11:00 Temperature Pulse Rate 110 H Respiratory Rate 36 H Blood Pressure 134/58 L Pulse Oximetry 95 97 99 06/17/19 11:46 06/17/19 12:05 Temperature 98.3 F Pulse Rate 97 H Respiratory Rate 31 H Blood Pressure 134/58 L Pulse Oximetry 97 Fraction of Inspired Oxygen 100 Oxygen Delivery Method Heated High Flow Oxygen Flow Rate 55 Narrative Exam Narrative: General: Alert, somewhat anxious Lungs: Coarse crackles in the mid to lower lungs bilaterally, no wheeze Heart: Regular rhythm, no murmur Abdomen: Soft and nontender Extremities: No edema Objective Labs Result Diagrams: 06/17/19 05:30 06/16/19 06:10 Labs: Laboratory Results - last 24 hr 06/17/19 06/17/19 06/17/19 05:30 06:17 10:00 WBC 21.0 H RBC 2.68 L Hgb 8.1 L Hct 23.8 L MCV 88.7 MCH 30.1 MCHC 33.9 RDW 13.6 Plt Count 314 Neut % (Auto) 94.3 H Lymph % (Auto) 3.6 L Cotton % (Auto) 2.0 L Eos % (Auto) 0.0 L Baso % (Auto) 0.1 Neut # (Auto) 33336 H Lymph # (Auto) 800 L Cotton # (Auto) 400 Eos # (Auto) 0 Baso # (Auto) 0 ABG pH 7.49 H ABG pCO2 38.1 ABG pO2 46 L* ABG HCO3 29 H ABG Total CO2 30 ABG O2 Saturation 85 L ABG Base Excess 6.0 H FiO2 21 Nasal Screen MRSA (PCR) Negative for mrsa Blood Type Antibody Screen Crossmatch 06/17/19 10:08 WBC RBC Hgb Hct MCV MCH MCHC RDW Plt Count Neut % (Auto) Lymph % (Auto) Cotton % (Auto) Eos % (Auto) Baso % (Auto) Neut # (Auto) Lymph # (Auto) Cotton # (Auto) Eos # (Auto) Baso # (Auto) ABG pH ABG pCO2 ABG pO2 ABG HCO3 ABG Total CO2 ABG O2 Saturation ABG Base Excess FiO2 Nasal Screen MRSA (PCR) Blood Type A Negative Antibody Screen Negative Crossmatch See Detail Assessment & Plan Assessment & Plan narrative: Patient is a 73-year-old male with recently diagnosed metastatic testicular cancer, status post inguinal radical right orchiectomy on 02/23/2019, and started on BEP 04/16/2019. He started his 3rd cycle of BEP on 06/12/2019. His day 2 of 3rd cycle of BEP was canceled because patient was developing weakness, shortness of breath and cough. Patient then presented to ER on 06/15 due to worsening dyspnea, cough and hypoxia with CT showing worsening of pulmonary airspace infiltrates. 1. Acute hypoxic respiratory failure, present on admission -patient currently on 15L high-flow cannula with frequent desaturation, presented initially with O2 sat 84% on 4 L nasal cannula -etiology concerning for bleomycin lung toxicity and superimposed pneumonia -elevated NT proBNP 3150 but patient's clinical presentation is not consistent with CHF -transthoracic ECHO ordered to more definitively evaluate cardiac status -chest x-ray one view 06/17/2019 shows increased bilateral airspace infiltrates -continue high-flow O2 and treat underlying etiologies -lorazepam 0.5 mg IV as needed for respiratory distress anxiety -spoke to patient about real possibility he may end up needing to be intubated and put on the ventilator and possibility that we may not be able to take him off the ventilator, patient indicated he would want to have intubation and mechanical ventilation but we did not get to finish discussion regarding whether he would want to remain long-term on ventilator support, his brother and [id number] who live in [place] are DPOA 2. Bleomycin lung toxicity -CT scan with bilateral lower lobe ground-glass infiltrate, increasing consolidation since outpatient CT 06/14/2019 -patient's onset of symptoms correlate with initiation of BEP -continue steroid treatment -switched prednisone to Solu-Medrol 60 mg daily, tapering of steroids would be per oncology 3. Bacterial pneumonia -patient may have superimposed pneumonia based on rapidly worsening CT appearance -last WBC 21.0, increased from prior day, but improved from 26.2 on 06/15, elevated WBC also at least partly attributable to systemic steroids -patient had elevated lactate 3.4 improved to 2.2 after hydration -received first 2 doses of Zithromax as outpatient -continue Rocephin 1 g IV daily and Zithromax 500 mg IV daily for broad-spectrum coverage 4. Anemia -current hemoglobin 8.1, hematocrit 23.8 versus on admission hemoglobin 8.5, hematocrit 24.6 -ordered transfusion 2 units PRBC in light of patient's difficulties maintaining oxygenation in hopes of improving O2 delivery, Lasix 20 mg IV in between units 5. History of paroxysmal atrial fibrillation -this was associated with electrolyte disturbances on prior hospitalization -currently in sinus rhythm on heart monitor -continue metoprolol succinate 25 mg q.d. 6. Hypothyroidism -continue patient's levothyroxine 150 mcg q.d. As of this a.m. patient is being managed in the ICU due to worsening respiratory failure with possibility of needing intubation. Total critical care management of at least 60 minutes in today's visits. Quality VTE Deep Vein Thrombosis/Pulmonary Embolism Present on Admission: No
[2019-06-17] MEDS: FUROSEMIDE 20 MG/2 ML VIAL IV (13:29)
[2019-06-17] MEDS: AZITHROMYCIN 500 MG in DEXTROSE 5% IN WATER 250 ML IV (15:51)
[2019-06-17] MEDS: CEFTRIAXONE 1 GM/50 ML FROZ.PIGGY IV (17:27)
--- NOTE | 2019-06-17 22:40 | PC.NURSE ---
Patient A/Ox4 when properly awake but will repeatedly take of O2 when sleepy without understanding what he's doing. High flow NC FiO2 down to 95% and patient's spO2 staying 94-97% when he is not taking the mask off. Desats very quickly and is slow to return when O2 is off. Non-productive intermittent cough. Bed alarm on, call light within reach.
[2019-06-18] VITALS (16 sets, daily range): BP systolic 104–145; BP diastolic 62–83; PULSE 69–100; RESP 18–28; TEMP 36.3–36.7; O2SAT 89–98
[2019-06-18] MEDS: SODIUM CHLORIDE 0.9% FLUSH 10 ML IV ×3 (00:36→06:01)
[2019-06-18] MEDS: LORazepam 2 MG/ML INJ 0.5 MG IV ×3 (00:36→19:56)
[2019-06-18 04:53] LABS: Add Manual Diff / Slide Review NO; Basophils Absolute Auto 0 /uL (0-100); Basophils Percent Auto 0.2 % (0-2); Eosinophils Absolute Auto 0 /uL (0-450); Hemoglobin 9.5 g/dL (13.5-17.5); Lymphocytes Absolute Auto 600 /uL (1100-4500); Lymphocytes Percent Auto 3.5 % (25-40); Mean Corpuscular HGB Conc 33.9 % (30-36); Mean Corpuscular Hemoglobin 29.3 PG (26-34); Mean Corpuscular Volume 86.3 fL (80-100); Monocytes Absolute Auto 500 /uL (0-900); Neutrophils Absolute Auto 14800 /uL (1500-7000); Neutrophils Percent Auto 93.3 % (50-75); Platelet Count 242 X10^3/uL (150-400); Red Blood Cell Count 3.26 X10^6/uL (4.5-5.9); Red Cell Distribution Width 14.7 % (11.6-14.8); White Blood Cell Count 15.9 X10^3/uL (4.5-11.0)
[2019-06-18 04:57] LABS: Hematocrit 28.1 % (41-53)
[2019-06-18 04:58] LABS: BUN Creatinine Ratio 38.6 (6-22); Blood Urea Nitrogen 27 mg/dL (9-20); Carbon Dioxide 34 mmol/L (22-32); Chloride 94 mmol/L (98-107); Estimated Glomerular Filt Rate > 60.0 mL/min (>60); Glucose 114 mg/dL (80-110); HEMOLYSIS < 15 (0-50); Potassium 3.8 mmol/L (3.4-5.1); Sodium 131 mmol/L (137-145)
[2019-06-18] MEDS: BENZOCAINE/MENTHOL 1 LOZ PKT 1 EACH PO (06:01)
--- NOTE | 2019-06-18 06:08 | PC.NURSE ---
Trimming Cutter Machine Note-Patient remains on HHFNC FIO2 90-100% flow 55L, sats >90% at rest or while asleep, desats quickly to 78% when he removes cannula and is slow to recover. RR 20s, fine diminished crackles bases, verbally denies dyspnea or pain, but is mildly restless and fidgeting. Wakes disoriented to place and situation, but reorients well. 0.5mg IV Ativan given prn for anxiety. SR with frequent PACs and PVCs on monitor.
[2019-06-18 08:16] LABS: PCO2 ABG 40.4 mmHg (35-45); PO2 ABG 60 mmHg (80-100); pH ABG 7.48 (7.35-7.45)
[2019-06-18 08:17] LABS: Fractionated Inspired Oxygen 100; HCO3 ABG 30 mmol/L (22-26); Oxygen Saturation ABG 92 % (95-100); TCO2 ABG 31 mmol/L (21-31)
[2019-06-18] MEDS: ASPIRIN EC 81 MG TABLET 162 MG PO (09:08)
[2019-06-18] MEDS: LEVOTHYROXINE 150 MCG TABLET PO (09:08)
[2019-06-18] MEDS: ENOXAPARIN 40 MG/0.4 ML SYRINGE SUBCUT (09:08)
[2019-06-18] MEDS: METOPROLOL ER 25 MG TABLET PO (09:10)
[2019-06-18] MEDS: methylPREDNISolone 125 MG/2 ML VIAL 60 MG IV ×2 (09:22→16:55)
[2019-06-18] MEDS: guaiFENesin ER 600 MG TAB 1200 MG PO ×2 (09:22→19:57)
[2019-06-18 10:53] LABS: Adenovirus Not Detected (Not Detect); Bordetella pertussis Not Detected (Not Detect); Chlamydophila pneumoniae Not Detected (Not Detect); Coronavirus 229E Not Detected (Not Detect); Coronavirus HKU1 Not Detected (Not Detect); Coronavirus NL 63 Not Detected (Not Detect); Coronavirus OC43 Not Detected (Not Detect); Human Metapneumovirus Not Detected (Not Detect); Human Rhinovirus/Enterovirus Not Detected (Not Detect); Influenza A Not Detected (Not Detect); Influenza B Not Detected (Not Detect); Mycoplasma pneumoniae Not Detected (Not Detect); Parainfluenza Virus 1 Not Detected (Not Detect); Parainfluenza Virus 2 Not Detected (Not Detect); Parainfluenza Virus 3 Not Detected (Not Detect); Parainfluenza Virus 4 Not Detected (Not Detect); Respiratory Syncytial Virus Not Detected (Not Detect)
--- NOTE | 2019-06-18 10:54 | CM.DPC ---
DCP Cont: Discussed patient at team rounds. Noted the note from Dr. Hopkins yesterday, that patient wants all treatments done, intubation, trach, if necessary. Dr. Bhardwaj confirmed with patient this morning. She anticipates that patient will be here for at least several more days. He is on high flow oxygen, and she has put him on an increased dose of steroids. He is not yet medically stable enough to work with P.T. If patient is up to discussing skilled rehab, may have this conversation. Will see if patient's sister in law comes in, and can have this discussion. P: DCP to continue to follow. Patient may need correction at discharge. Is not yet able to work with P.T. If patient is able to converse later today, and if sister in law comes in, can discuss correction options. Deb Albert, RN/W[employer] Pot Tender
--- NOTE | 2019-06-18 11:42 | P.PN_ITS ---
Subjective Subjective Date Patient Seen: 06/18/19 Interval history: Alexander Zambrano is a 73-year-old male with recently diagnosed metastatic testicular cancer, status post inguinal radical right orchiectomy on 02/23/2019, and started on BEP 04/16/2019. He started his 3rd cycle of BEP on 06/12/2019. His day 2 of 3rd cycle of BEP was canceled because patient was developing weakness, shortness of breath and cough. Patient then presented to ER on 06/15 due to worsening dyspnea, cough and hypoxia with CT showing worsening of pulmonary airspace infiltrates. The patient is resting in bed comfortably. He reports that he is doing much better than he was yesterday. His breathing is not as labored and he does not feel as short of breath. He continues to require high amount of oxygen on heated high-flow with FiO2 1.0 now down to 0.9 and flow 55 L/min now down to 45 L/min. The patient's oxygenation seems to be improving with increase in IV steroids. He endorses rhinitis and sore throat, therefore, performed a respiratory PCR which was negative. He has no other complaints and denies headache, ear pain, chest pain, abdominal pain, nausea, vomiting, fever, chills, dysuria, or diarrhea. He is voiding and eliminating without difficulty. He has not had a bowel movement in 2 days and a bowel regimen has been implemented. He is up minimally and predominantly in bed. Exam Vital Signs (past 8 hours): - 06/18/19 03:47 06/18/19 04:30 06/18/19 04:31 Temperature 97.5 F L Pulse Rate 72 Respiratory Rate 22 Blood Pressure 126/64 Pulse Oximetry 89 L 95 95 06/18/19 08:00 06/18/19 09:10 06/18/19 10:38 Temperature 97.8 F Pulse Rate 78 96 H 100 H Respiratory Rate 28 H Blood Pressure 119/71 119/71 Pulse Oximetry 95 Fraction of Inspired Oxygen 1.0 Oxygen Delivery Method Heated High Flow Oxygen Flow Rate 55 Narrative Exam Narrative: General: Elderly gentleman sitting in bed and in no acute distress, well- developed, well-nourished, appropriately interactive. HEENT: Normocephalic, atraumatic. External ears without defect. Pupils equal, round, and reactive to light. Anicteric sclerae, moist conjunctivae, and no lid lag. Oropharynx free of erythema and cobble stoning with moist mucosa. Heated high-flow oxygen nasal cannula in place. Neck: Supple with full range of motion. No jugular venous distension. No bruits. No lymphadenopathy or thyromegaly. Cardiovascular: Regular rate and rhythm without murmurs, rubs, or gallops appreciated. Pulmonary: Significantly diminished throughout with little air movement and scattered crackles in lower lung garner. No wheezes or rhonchi. Abdomen: Soft, bowel sounds present, nontender, nondistended. No hepatosplenomegaly or masses appreciated. Extremities: No clubbing, cyanosis, or edema. Skin: Normal temperature, turgor, and texture; no rash, ulcers, or subcutaneous nodules appreciated. Neurological: Cranial nerves grossly intact. Psychiatric: Normal mood and affect. Alert and oriented to person, place, and time. Objective Labs Result Diagrams: 06/18/19 04:30 06/18/19 04:30 Labs: Laboratory Results - last 24 hr 06/17/19 06/17/19 06/18/19 06:15 10:08 04:30 WBC 15.9 H RBC 3.26 L Hgb 9.5 L Hct 28.1 L MCV 86.3 MCH 29.3 MCHC 33.9 RDW 14.7 Plt Count 242 Neut % (Auto) 93.3 H Lymph % (Auto) 3.5 L [place] % (Auto) 3.0 Eos % (Auto) 0.0 L Baso % (Auto) 0.2 Neut # (Auto) 76026 H Lymph # (Auto) 600 L [place] # (Auto) 500 Eos # (Auto) 0 Baso # (Auto) 0 ABG pH 7.49 H ABG pCO2 38.1 ABG pO2 46 L* ABG HCO3 29 H ABG Total CO2 30 ABG O2 Saturation 85 L ABG Base Excess 6.0 H FiO2 21 Sodium Potassium Chloride Carbon Dioxide BUN Creatinine Estimated GFR BUN/Creatinine Ratio Glucose Calcium Chlamy pneumoniae PCR Adenovirus (PCR) B.parapertussis DNA PCR Coronavirus OC43 (PCR) Coronavirus HKU1 (PCR) Coronavirus 229E (PCR) Coronavirus NL63 (PCR) Human Metapneumovir PCR Influenza Type A (PCR) Influenza Type B (PCR) M. pneumoniae (PCR) Parainfluenza 1 (PCR) Parainfluenza 2 (PCR) Parainfluenza 3 (PCR) Parainfluenza 4 (PCR) RSV (PCR) Entero/Rhino (PCR) Blood Type A Negative Antibody Screen Negative Crossmatch See Detail 06/18/19 06/18/19 06/18/19 04:30 07:59 09:25 WBC RBC Hgb Hct MCV MCH MCHC RDW Plt Count Neut % (Auto) Lymph % (Auto) [place] % (Auto) Eos % (Auto) Baso % (Auto) Neut # (Auto) Lymph # (Auto) [place] # (Auto) Eos # (Auto) Baso # (Auto) ABG pH 7.48 H ABG pCO2 40.4 ABG pO2 60 L ABG HCO3 30 H ABG Total CO2 31 ABG O2 Saturation 92 L ABG Base Excess 6.0 H FiO2 100 Sodium 131 L Potassium 3.8 Chloride 94 L Carbon Dioxide 34 H BUN 27 H Creatinine 0.70 Estimated GFR > 60.0 BUN/Creatinine Ratio 38.6 H Glucose 114 H Calcium 8.0 L Chlamy pneumoniae PCR Not detected Adenovirus (PCR) Not detected B.parapertussis DNA PCR Not detected Coronavirus OC43 (PCR) Not detected Coronavirus HKU1 (PCR) Not detected Coronavirus 229E (PCR) Not detected Coronavirus NL63 (PCR) Not detected Human Metapneumovir PCR Not detected Influenza Type A (PCR) Not detected Influenza Type B (PCR) Not detected M. pneumoniae (PCR) Not detected Parainfluenza 1 (PCR) Not detected Parainfluenza 2 (PCR) Not detected Parainfluenza 3 (PCR) Not detected Parainfluenza 4 (PCR) Not detected RSV (PCR) Not detected Entero/Rhino (PCR) Not detected Blood Type Antibody Screen Crossmatch Assessment & Plan Assessment & Plan narrative: Alexander Zambrano is a 73-year-old male with recently diagnosed metastatic testicular cancer, status post inguinal radical right orchiectomy on 02/23/2019, and started on BEP 04/16/2019. He started his 3rd cycle of BEP on 06/12/2019. His day 2 of 3rd cycle of BEP was canceled because patient was developing weakness, shortness of breath and cough. Patient then presented to ER on 06/15 due to worsening dyspnea, cough and hypoxia with CT showing worsening of pulmonary airspace infiltrates. 1. Acute hypoxemic respiratory failure, present on admission. Active. -Etiology likely due to bleomycin lung toxicity with superimposed pneumonia. -Elevated NT proBNP at 3150 but patient's clinical presentation is not consistent with CHF. Echocardiogram showed hyperdynamic LV without systolic or diastolic dysfunction. -CT scan with bilateral lower lobe ground-glass infiltrate and increasing consolidation since outpatient CT on 06/14/2019. -Continue heated high-flow oxygen and treat underlying etiologies as below. Continue to titrate off as tolerated. Goal oxygen saturation 88-92%. Currently on heated high-flow with FiO2 0.9 and 45 L/min flow which is slightly improved since yesterday. -Continue lorazepam 0.5 mg IV every 4 hours as needed for respiratory distress and/or anxiety. -Discussed the possibility of intubation and mechanical ventilation, as well as, the probability that we may not be able to take him off the ventilator for which the patient indicated that he would want to full code and be intubated and mechanically ventilated if necessary. He also informed me that he would want to be trached and to remain on long-term on ventilator support if necessary. His brother and [id number] who live in [place] are DPOA. 2. Acute bleomycin lung toxicity, present on admission. Active. -CT scan with bilateral lower lobe ground-glass infiltrate and increasing consolidation since outpatient CT on 06/14/2019. -Patient's onset of symptoms correlate with initiation of bleomycin. -Continue high-dose glucocorticoids and increased Solu-Medrol from 60 mg daily to 60 mg every 8 hours and will plan for slow taper of glucocorticoids over next several months. 3. Acute bacterial pneumonia, present on admission. Active. -Patient likely has superimposed bacterial pneumonia based on rapidly worsening CT appearance. -Initial WBC elevated at 17.3 and procalcitonin 0.15. WBC elevated in setting of high-dose glucocorticoids but trending down now 15.9. Continue to monitor WBC daily. -Patient had elevated lactate of 3.4 due to hypoxemic respiratory failure and resolved after IV fluid hydration. -Ordered complete pneumonia workup including: Respiratory PCR negative. Strep pneumoniae and Legionella urine antigens, pending. Blood cultures x2 have no growth. -Continue Rocephin 1 g IV daily and azithromycin 500 mg IV daily x 3 doses for broad-spectrum coverage and pulmonary anti-inflammatory effect. Received 2 doses of azithromycin as outpatient. 4. Anemia, chronic, present on admission. Stable. -Current hemoglobin 9.5 and hematocrit 28.1. -Status post 2 units PRBC with Lasix 20 mg IV in between which was given to flame cutting machine operator helper in oxygen delivery. 5. Paroxysmal atrial fibrillation, chronic, present on admission. Stable. -Patient previously had paroxysmal atrial fibrillation due to electrolyte disturbances on prior hospitalization. -Currently in sinus rhythm with frequent PVCs on telemetry. Continue to monitor closely on telemetry. -Continue metoprolol succinate 25 mg daily. 6. Hypothyroidism, chronic, present on admission. Stable. -TSH normal at 2.69. -Continue home levothyroxine 150 mcg daily. 7. Metastatic testicular cancer, status post orchiectomy, chronic, present on admission. Stable. -Patient is followed by Dr. London of oncology. -Patients by chemotherapy with bleomycin has been discontinued. Continue outpatient follow-up with oncology once patient recovers from acute illness. Code status: Full code DVT prophylaxis: SQ Enoxaparin Disposition: Patient remained inpatient and will likely be hospitalized for several more days to weeks until adequately treated for bleomycin lung toxicity and pneumonia. Quality VTE Deep Vein Thrombosis/Pulmonary Embolism Present on Admission: No
--- NOTE | 2019-06-18 12:16 | PC.NURSE ---
Addendum entered by Vicky Carey R.N. 06/18/19 15:20: RT DECREASED O2 TO 90% AND 45 LITERS- SPO2 95% Original Note: pt much more alert and oriented this shift ( as compared to yesterday day shift) able to carry on conversation without becoming dyspneic- continues to require heated high flow 02 @ 55L ( 100%), sotelo cath maintained and hr 74-100 bpm - sinus rhythm with freq pvc, pt denies pain but does become hypoxic even with turning in bed-
[2019-06-18 12:37] LABS: TSH w/ Reflex to FT4 2.69 uIU/mL (0.47-4.68)
[2019-06-18] MEDS: AZITHROMYCIN 500 MG in DEXTROSE 5% IN WATER 250 ML IV (13:09)
--- NOTE | 2019-06-18 14:00 | CM.DPC ---
DCP Cont: Met with patient today. He is feeling better. He is alert and oriented, engaging in conversation. He mentioned that his brother Gilberto, is to be coming today. Patient was sitting up in bed, on his oxygen. Confirmed that he does live alone. Discussed resources for when he is ready to go home. Mentioned possible assisted if he needs it, and let him know that this would be covered by his Medicare. Also mentioned home health as well. Gave him a Medicare Choice List to review. He is familiar with [facility]. He also has not yet been up with P.T. P: DCP will continue to check in. Patient has Medicare Choice List. Once P.T. is ordered, can collaborate with them as well regarding home versus skilled. Deb Albert RN/Education And Training Manager
[2019-06-18] MEDS: CEFTRIAXONE 1 GM/50 ML FROZ.PIGGY IV (16:56)
[2019-06-18] MEDS: DOCUSATE 100 MG CAPSULE PO (19:56)
--- NOTE | 2019-06-18 20:02 | PC.NURSE ---
Addendum entered by Christina Mak R.N. 06/18/19 21:55: Pt sats 86-90%, asymptomatic. Requesting RT to increase Heated Hi Flow settings Original Note: Pt tolerated boosting and repositioning well without desatting. Pt's VSS, Sats 95% on heated high flow. Denies pain and difficulty breathing.
[2019-06-19] VITALS (18 sets, daily range): BP systolic 121–137; BP diastolic 64–70; PULSE 72–98; RESP 18–34; TEMP 36.1–36.6; O2SAT 88–98
--- NOTE | 2019-06-19 00:48 | PC.NURSE ---
Addendum entered by Edgar Mcfarlane R.N. 06/19/19 05:23: 0515: Sleeping intermittently. Desats easily with any exertion, down to 84% and comes back up to 88-90 within 4-5 minutes. Remains on FiO2 of 95% with a flow of 40 on HHFNC. Original Note: Cancer Registry Manager Note: 0020: Awake, RT at bedside. Vital signs stable. Portacath needle intact in lt chest Portacath, with dressing cdi; heparin locked. Pt remains on HHFNC, currently at 98% FIO2 with flow decreased to 40 by RT due to pt c/o too much flow. Keane catheter patent, urine is clear jerrell. HOB elevated 45 degrees. Pt is alert, oriented.
[2019-06-19] MEDS: methylPREDNISolone 125 MG/2 ML VIAL 60 MG IV ×3 (03:30→21:59)
[2019-06-19 05:28] LABS: Add Manual Diff / Slide Review NO; Basophils Absolute Auto 0 /uL (0-100); Basophils Percent Auto 0.2 % (0-2); Eosinophils Absolute Auto 0 /uL (0-450); Hematocrit 28.5 % (41-53); Hemoglobin 9.8 g/dL (13.5-17.5); Lymphocytes Absolute Auto 400 /uL (1100-4500); Lymphocytes Percent Auto 2.4 % (25-40); Mean Corpuscular HGB Conc 34.5 % (30-36); Mean Corpuscular Hemoglobin 29.7 PG (26-34); Monocytes Absolute Auto 400 /uL (0-900); Monocytes Percent Auto 2.3 % (3-14); Neutrophils Absolute Auto 16200 /uL (1500-7000); Neutrophils Percent Auto 95.1 % (50-75); Platelet Count 237 X10^3/uL (150-400); Red Blood Cell Count 3.31 X10^6/uL (4.5-5.9); Red Cell Distribution Width 14.4 % (11.6-14.8)
[2019-06-19 05:55] LABS: Alanine Aminotransferase 241 IU/L (<50); Albumin 2.6 g/dL (3.5-5.0); Albumin Globulin Ratio 0.9 (1.0-2.8); Alkaline Phosphatase 103 U/L (38-126); Aspartate Aminotransferase 242 IU/L (17-59); BUN Creatinine Ratio 41.4 (6-22); Bilirubin Total 0.4 mg/dL (0.2-1.3); Blood Urea Nitrogen 29 mg/dL (9-20); Calcium 8.3 mg/dL (8.4-10.2); Carbon Dioxide 33 mmol/L (22-32); Chloride 93 mmol/L (98-107); Estimated Glomerular Filt Rate > 60.0 mL/min (>60); Glucose 127 mg/dL (80-110); HEMOLYSIS < 15 (0-50); Magnesium 1.6 mg/dL (1.6-2.3); Sodium 131 mmol/L (137-145); Total Protein 5.6 g/dL (6.3-8.2)
[2019-06-19 06:08] LABS: Procalcitonin 0.22 ng/mL (<0.5)
--- NOTE | 2019-06-19 09:43 | DI.RAD.S_ITS ---
PROCEDURE: XR CHEST 1V INDICATIONS: decreased spo2 TECHNIQUE: One view of the chest was acquired. COMPARISON: [facility], CT, CT CHEST ABD PEL W CON, 03/21/2019, 10:08. [facility], CT, CT ANGIO CHEST PE PROTOCOL, 06/15/2019, 14:19. [facility], CR, XR CHEST 1V, 06/17/2019, 9:49. FINDINGS: Surgical changes and devices: Left-sided port with the catheter tip terminating in the lower third of the SVC. ACDF. Lungs and pleura: Slight improvement in lung volumes and interstitial markings bilaterally. Mild bibasilar opacity. No pleural effusions or pneumothorax. Mediastinum: Mediastinal contours appear normal. Heart size is prominent. Bones and chest wall: No suspicious bony lesions. Overlying soft tissues appear unremarkable. IMPRESSION: Slight interval improvement in the interstitial markings bilaterally. Mild persistent bibasilar opacity. Findings likely due to improving fluid overload/CHF. Dictated by: Carlitos Almonte M.D. on 06/19/2019 at 10:23 Approved by: Carlitos Almonte M.D. on 06/19/2019 at 10:26
[2019-06-19] MEDS: ENOXAPARIN 40 MG/0.4 ML SYRINGE SUBCUT (09:55)
[2019-06-19] MEDS: LEVOTHYROXINE 150 MCG TABLET PO (09:56)
[2019-06-19] MEDS: METOPROLOL ER 25 MG TABLET PO (09:56)
[2019-06-19] MEDS: polyethylene glycoL 3350 17 GM POWD.PACK PO (09:56)
[2019-06-19] MEDS: guaiFENesin ER 600 MG TAB 1200 MG PO ×2 (09:56→21:59)
[2019-06-19] MEDS: DOCUSATE 100 MG CAPSULE PO ×2 (09:56→21:59)
[2019-06-19] MEDS: ASPIRIN EC 81 MG TABLET 162 MG PO (09:56)
[2019-06-19 10:18] LABS: HCO3 ABG 26 mmol/L (22-26); PCO2 ABG 33.8 mmHg (35-45); PO2 ABG 44 mmHg (80-100); TCO2 ABG 27 mmol/L (21-31); pH ABG 7.49 (7.35-7.45)
--- NOTE | 2019-06-19 10:18 | PC.NURSE ---
Addendum entered by Vicky Carey R.N. 06/19/19 13:42: PT ALERT/ORIENTED AND REQUESTING AN ENEMA- INSTRUCTED THAT WE MAY START WITH WI SUPPOSITORY AND WOULD BE USING BEDPAN ONLY DUE TO EARLIER EVENT WHILE ATTEMPTING TO USE BSC- CONTINUES TO DENY PAIN BUT CONTINUES TO DESAT WITH ANY MOVEMENT EVEN PASSIVE ROM AND PULLING UP IN BED BY STAFF- DR HOANG Addendum entered by Vicky Carey R.N. 06/19/19 11:22: REMOVAL OF NRB AFTER APPROX 1 HOUR PER MD ORDERS - ABG IN ONE HOUR FROM NOW- PT TALKATIVE AND SPO2 97% ON HHFNC Original Note: PT ALERT AND ORIENTED THIS AM AND TOLERATING HEATED HIGH FLOW CANNULA AT 90% & 40LITERS WITH SPO2 LOW-MID 90%- AFTER CONVERSATION WITH PT HE WISHED TO ATTEMPT BM ON BSC AND THIS ACTIVITY WAS VERY TAXING TO PT. HE BECAME HYPOXIC WITH SPO2 DOWN TO 77% ON ABOVE SETTINGS- WITH RR INCREASED TO 42 RPM- STAT ABG/CXR DONE AND IN ADDITION TO HHFNC WE ADDED NRB AT 15L - MD UPDATED AND ORDERS RECEIVED
[2019-06-19 10:19] LABS: Fractionated Inspired Oxygen 100; Oxygen Saturation ABG 84 % (95-100)
--- NOTE | 2019-06-19 11:24 | PM.CHAP ---
Nice visit with patient. Encouraged him to ask for hair blender visits at any time. Prayer and encouragement.
[2019-06-19 12:20] LABS: Fractionated Inspired Oxygen 100; HCO3 ABG 28 mmol/L (22-26); Oxygen Saturation ABG 95 % (95-100); PO2 ABG 71 mmHg (80-100); TCO2 ABG 29 mmol/L (21-31); pH ABG 7.48 (7.35-7.45)
--- NOTE | 2019-06-19 13:11 | PM.PN.1 ---
Subjective Subjective Date Patient Seen: 06/19/19 Time Patient Seen: 09:30 Interval history: Alexander Zambrano is a 73-year-old male with recently diagnosed metastatic testicular cancer, status post inguinal radical right orchiectomy on 02/23/2019, and started on BEP 04/16/2019. He started his 3rd cycle of BEP on 06/12/2019. His day 2 of 3rd cycle of BEP was canceled because patient was developing weakness, shortness of breath and cough. Patient then presented to ER on 06/15 due to worsening dyspnea, cough and hypoxia with CT showing worsening of pulmonary airspace infiltrates concerning for bleomycin toxicity. The patient is resting in bed comfortably. He reports that he is doing better than he was yesterday. His breathing is not as labored and he does not feel as short of breath at rest. He continues to require high amount of oxygen on heated high-flow. This morning, the patient attempted to get out of bed and had prolonged desaturations. It took about a half an hour of rest, with high-flow and non-rebreather mass before the patient returned to baseline, he was very close to needing to be intubated. He is to remain in the bed the rest of the day. Exam Vital Signs (past 8 hours): - 06/19/19 05:25 06/19/19 07:40 06/19/19 08:30 Temperature 97.7 F Pulse Rate 88 Respiratory Rate 34 H 20 Blood Pressure 133/70 Pulse Oximetry 95 88 L 96 06/19/19 09:00 06/19/19 09:56 06/19/19 10:00 Temperature Pulse Rate 98 H Respiratory Rate Blood Pressure 133/70 Pulse Oximetry 91 91 06/19/19 10:05 06/19/19 10:18 06/19/19 11:16 Temperature 97.8 F Pulse Rate 97 H 84 Respiratory Rate 24 25 H Blood Pressure 137/67 Pulse Oximetry 94 91 96 06/19/19 11:21 06/19/19 12:00 Temperature Pulse Rate 84 Respiratory Rate Blood Pressure 137/67 Pulse Oximetry 93 Fraction of Inspired Oxygen 100 Oxygen Delivery Method Heated High Flow Oxygen Flow Rate 55 Narrative Exam Narrative: General: Elderly gentleman sitting in bed and in no acute distress, well-developed, well-nourished, appropriately interactive. HEENT: Normocephalic, atraumatic. External ears without defect. Pupils equal, round, and reactive to light. Anicteric sclerae, moist conjunctivae, and no lid lag. Oropharynx free of erythema and cobble stoning with moist mucosa. Heated high-flow oxygen nasal cannula in place. Neck: Supple with full range of motion. No jugular venous distension. No bruits. No lymphadenopathy or thyromegaly. Cardiovascular: Regular rate and rhythm without murmurs, rubs, or gallops appreciated. Pulmonary: Significantly diminished throughout with little air movement and scattered crackles in lower lung garner. No wheezes or rhonchi. Abdomen: Soft, bowel sounds present, nontender, nondistended. No hepatosplenomegaly or masses appreciated. Extremities: No clubbing, cyanosis, or edema. Skin: Normal temperature, turgor, and texture; no rash, ulcers, or subcutaneous nodules appreciated. Neurological: Cranial nerves grossly intact. Psychiatric: Normal mood and affect. Alert and oriented to person, place, and time. Objective Labs Result Diagrams: 06/19/19 05:10 06/19/19 05:10 Labs: Laboratory Results - last 24 hr 06/19/19 06/19/19 06/19/19 05:10 05:10 05:10 WBC 17.0 H RBC 3.31 L Hgb 9.8 L Hct 28.5 L MCV 86.0 MCH 29.7 MCHC 34.5 RDW 14.4 Plt Count 237 Neut % (Auto) 95.1 H Lymph % (Auto) 2.4 L [place] % (Auto) 2.3 L Eos % (Auto) 0.0 L Baso % (Auto) 0.2 Neut # (Auto) 88778 H Lymph # (Auto) 400 L [place] # (Auto) 400 Eos # (Auto) 0 Baso # (Auto) 0 ABG pH ABG pCO2 ABG pO2 ABG HCO3 ABG Total CO2 ABG O2 Saturation ABG Base Excess FiO2 Sodium 131 L Potassium 4.0 Chloride 93 L Carbon Dioxide 33 H BUN 29 H Creatinine 0.70 Estimated GFR > 60.0 BUN/Creatinine Ratio 41.4 H Glucose 127 H Calcium 8.3 L Magnesium 1.6 Total Bilirubin 0.4 AST 242 H ALT 241 H Alkaline Phosphatase 103 Total Protein 5.6 L Albumin 2.6 L Globulin 3.0 Albumin/Globulin Ratio 0.9 L Procalcitonin 0.22 06/19/19 06/19/19 09:55 12:04 WBC RBC Hgb Hct MCV MCH MCHC RDW Plt Count Neut % (Auto) Lymph % (Auto) [place] % (Auto) Eos % (Auto) Baso % (Auto) Neut # (Auto) Lymph # (Auto) [place] # (Auto) Eos # (Auto) Baso # (Auto) ABG pH 7.49 H 7.48 H ABG pCO2 33.8 L 38.0 ABG pO2 44 L* 71 L ABG HCO3 26 28 H ABG Total CO2 27 29 ABG O2 Saturation 84 L* 95 ABG Base Excess 3.0 H 5.0 H FiO2 100 100 Sodium Potassium Chloride Carbon Dioxide BUN Creatinine Estimated GFR BUN/Creatinine Ratio Glucose Calcium Magnesium Total Bilirubin AST ALT Alkaline Phosphatase Total Protein Albumin Globulin Albumin/Globulin Ratio Procalcitonin Assessment & Plan Assessment & Plan narrative: Alexander Zambrano is a 73-year-old male with recently diagnosed metastatic testicular cancer, status post inguinal radical right orchiectomy on 02/23/2019, and started on BEP 04/16/2019. He started his 3rd cycle of BEP on 06/12/2019. His day 2 of 3rd cycle of BEP was canceled because patient was developing weakness, shortness of breath and cough. Patient then presented to ER on 06/15 due to worsening dyspnea, cough and hypoxia with CT showing worsening of pulmonary airspace infiltrates. 1. Acute hypoxemic respiratory failure, present on admission. Active. -Etiology likely due to bleomycin lung toxicity with superimposed pneumonia. -Elevated NT proBNP at 3150 but patient's clinical presentation is not consistent with CHF. Echocardiogram showed hyperdynamic LV without systolic or diastolic dysfunction. -CT scan with bilateral lower lobe ground-glass infiltrate and increasing consolidation since outpatient CT on 06/14/2019. -Continue heated high-flow oxygen and treat underlying etiologies as below. Continue to titrate off as tolerated. Goal oxygen saturation 88-92%. Currently on heated high-flow. Slightly worse compared to yesterday after acute decompensation with getting out of bed. Continue steroid therapy for now. -Continue lorazepam 0.5 mg IV every 4 hours as needed for respiratory distress and/or anxiety. -Discussed the possibility of intubation and mechanical ventilation, as well as, the probability that we may not be able to take him off the ventilator for which the patient indicated that he would want to full code and be intubated and mechanically ventilated if necessary. He also informed provider that he would want to be trached and to remain on long-term on ventilator support if necessary. His brother and [id number] who live in [place] are DPOA. 2. Acute bleomycin lung toxicity, present on admission. Active. -CT scan with bilateral lower lobe ground-glass infiltrate and increasing consolidation since outpatient CT on 06/14/2019. -Patient's onset of symptoms correlate with initiation of bleomycin. -Continue high-dose glucocorticoids with Solu-Medrol 60 mg every 8 hours and will plan for slow taper of glucocorticoids over next several months. He improved slightly when dosing was increased from daily to q8hr. 3. Acute bacterial pneumonia, present on admission. Active. -Patient likely has superimposed bacterial pneumonia based on rapidly worsening CT appearance. -Initial WBC elevated at 17.3 and procalcitonin 0.15. WBC elevated in setting of high-dose glucocorticoids but trending down now 15.9. Continue to monitor WBC daily. -Patient had elevated lactate of 3.4 due to hypoxemic respiratory failure and resolved after IV fluid hydration. -Ordered complete pneumonia workup including: Respiratory PCR negative. Strep pneumoniae and Legionella urine antigens, pending. Blood cultures x2 have no growth. -Continue Rocephin 1 g IV daily and azithromycin 500 mg IV daily x 3 doses for broad-spectrum coverage and pulmonary anti-inflammatory effect. Received 2 doses of azithromycin as outpatient. 4. Anemia, chronic, present on admission. Stable. -Current hemoglobin 9.5 and hematocrit 28.1. -Status post 2 units PRBC with Lasix 20 mg IV in between which was given to carton forming machine helper in oxygen delivery. 5. Paroxysmal atrial fibrillation, chronic, present on admission. Stable. -Patient previously had paroxysmal atrial fibrillation due to electrolyte disturbances on prior hospitalization. -Currently in sinus rhythm with frequent PVCs on telemetry. Continue to monitor closely on telemetry. -Continue metoprolol succinate 25 mg daily. 6. Hypothyroidism, chronic, present on admission. Stable. -TSH normal at 2.69. -Continue home levothyroxine 150 mcg daily. 7. Metastatic testicular cancer, status post orchiectomy, chronic, present on admission. Stable. -Patient is followed by Dr. London of oncology. -Patients by chemotherapy with bleomycin has been discontinued. Continue outpatient follow-up with oncology once patient recovers from acute illness. Code status: Full code DVT prophylaxis: SQ Enoxaparin Disposition: Patient remained inpatient and will likely be hospitalized for several more days to weeks until adequately treated for bleomycin lung toxicity and pneumonia. Plan for likely SNF upon discharge once medically ready. Quality VTE Deep Vein Thrombosis/Pulmonary Embolism Present on Admission: No
[2019-06-19] MEDS: AZITHROMYCIN 500 MG in DEXTROSE 5% IN WATER 250 ML IV (13:24)
--- NOTE | 2019-06-19 15:59 | CM.DPC ---
DCP continued: EMR reviewed: CM/RN spoke with Heidi JIMENEZ in Oncology and she stated she placed a referral to [place] [facility] last week and that Patient at time of her last visit was not interested in hospice. Today during Am rounds patient continued to Desat and patient was placed on Bi-pap. Dr. Austin is determining if patient needs to be intubated at this time. CM/Rn called patients Sister in law and left a message at [phone] to get SNF choice as a back up plan to home with palliative care. Since patient was having difficulty with breathing. CM did attempt to get patients first choice but he was not able to participate at that time. CM/RN called palliative care in [place] and left a voice message. CM department to follow up and establish needed D/C plan. Dr Austin stated patient will be in the hospital a few more days Monisha Wills RN
[2019-06-19] MEDS: CEFTRIAXONE 1 GM/50 ML FROZ.PIGGY IV (17:25)
--- NOTE | 2019-06-19 18:01 | PC.NURSE ---
Evening Shift Note: Pt received laying in bed, on 100% FiO2 heated hiflow NC with flow rate of 55 L. Pt denies SOB, RR 19, appears comfortable and unlabored in bed. Pt denies pain, denies nausea, poor appetite. Pt with constipation. Given bowel meds on hi. Pt resting at this time. Call light in reach. Pt is on bedrest per provider orders. Will continue to monitor, notify MD with changes.
[2019-06-20] VITALS (41 sets, daily range): BP systolic 69–198; BP diastolic 49–86; PULSE 53–97; RESP 16–25; TEMP 36.1–36.6; O2SAT 84–98
[2019-06-20] MEDS: BENZOCAINE/MENTHOL 1 LOZ PKT 1 EACH PO (01:02)
[2019-06-20] MEDS: SODIUM CHLORIDE 0.9% FLUSH 10 ML IV ×2 (01:02→04:49)
[2019-06-20] MEDS: LORazepam 2 MG/ML INJ 0.5 MG IV (01:02)
--- NOTE | 2019-06-20 01:39 | PC.NURSE ---
Addendum entered by Pam Harmon R.N. 06/20/19 05:23: 0510-Patient awake oriented during 2nd assessment, turned to Lt side, desatted to 80% with activity, RR 20s, denies dyspnea, and able to converse without difficulty, color remains pink, slight cyanosis to lips, HR 80s-90s, added NRB at 15L, slowly recovering to high 80%. Original Note: Director Of Adult Epilepsy Note- Patient is A/Ox4, used call light for assist onto bedpan, no BM, is passing flatus, denies nausea. Denies pain, does say he is little anxious agreed to IV Ativan per prn for anxiety and sleep. Remains on HHFNC at 100% with 55L flow. SpO2 >92% at rest, but did desat to 84% during activity while in bed. RR 20s, SR with frequent PACs and occasional PVCs.
[2019-06-20] MEDS: methylPREDNISolone 125 MG/2 ML VIAL 60 MG IV ×2 (04:49→13:24)
[2019-06-20 08:37] LABS: Add Manual Diff / Slide Review NO; Basophils Absolute Auto 0 /uL (0-100); Basophils Percent Auto 0.2 % (0-2); Eosinophils Absolute Auto 0 /uL (0-450); Hematocrit 30.1 % (41-53); Hemoglobin 10.4 g/dL (13.5-17.5); Lymphocytes Absolute Auto 300 /uL (1100-4500); Lymphocytes Percent Auto 1.8 % (25-40); Mean Corpuscular HGB Conc 34.6 % (30-36); Mean Corpuscular Hemoglobin 29.8 PG (26-34); Mean Corpuscular Volume 85.9 fL (80-100); Monocytes Absolute Auto 600 /uL (0-900); Monocytes Percent Auto 3.8 % (3-14); Neutrophils Absolute Auto 14400 /uL (1500-7000); Neutrophils Percent Auto 94.2 % (50-75); Platelet Count 251 X10^3/uL (150-400); Red Cell Distribution Width 14.5 % (11.6-14.8); White Blood Cell Count 15.3 X10^3/uL (4.5-11.0)
[2019-06-20 08:56] LABS: Alanine Aminotransferase 200 IU/L (<50); Albumin 2.7 g/dL (3.5-5.0); Albumin Globulin Ratio 0.9 (1.0-2.8); Alkaline Phosphatase 99 U/L (38-126); Aspartate Aminotransferase 107 IU/L (17-59); Bilirubin Total 0.5 mg/dL (0.2-1.3); Blood Urea Nitrogen 33 mg/dL (9-20); Calcium 8.4 mg/dL (8.4-10.2); Carbon Dioxide 30 mmol/L (22-32); Chloride 93 mmol/L (98-107); Estimated Glomerular Filt Rate > 60.0 mL/min (>60); Globulin 3.1 g/dL (1.7-4.1); Glucose 120 mg/dL (80-110); HEMOLYSIS 35 (0-50); Potassium 4.2 mmol/L (3.4-5.1); Sodium 131 mmol/L (137-145); Total Protein 5.8 g/dL (6.3-8.2)
[2019-06-20 09:13] LABS: Procalcitonin 0.17 ng/mL (<0.5)
--- NOTE | 2019-06-20 10:30 | CM.DPC ---
DCP: continued: Case received and discussed in Team Rounds. Dr. Austin stated he has been working on a transfer of pt to the [facility]. He is coordinating same with RN coordinator Andrew and the ICU staff. P: as per above when all is in place.
[2019-06-20] MEDS: ASPIRIN EC 81 MG TABLET 162 MG PO (11:05)
[2019-06-20] MEDS: METOPROLOL ER 25 MG TABLET PO (11:05)
[2019-06-20] MEDS: guaiFENesin ER 600 MG TAB 1200 MG PO (11:06)
[2019-06-20] MEDS: DOCUSATE 100 MG CAPSULE PO (11:06)
[2019-06-20] MEDS: LEVOTHYROXINE 150 MCG TABLET PO (11:06)
[2019-06-20] MEDS: ENOXAPARIN 40 MG/0.4 ML SYRINGE SUBCUT (11:06)
[2019-06-20] MEDS: polyethylene glycoL 3350 17 GM POWD.PACK PO (11:08)
--- NOTE | 2019-06-20 12:00 | PM.CHAP ---
Feeling much better today. Hopeful for good results from care in [place]. Prayer with patient.
--- NOTE | 2019-06-20 14:39 | PM.DS.1 ---
History of Present Illness History of Present Illness Date Patient Seen: 06/20/19 Time Patient Seen: 14:39 Chief complaint: low saturation Narrative: As per Dr. Hopkins: Patient is a 73-year-old male with recently diagnosed metastatic testicular cancer, status post inguinal radical right orchiectomy on 02/23/2019, and started on BEP 04/16/2019. He started his 3rd cycle of BEP on 06/12/2019. His day 2 of 3rd cycle of BEP was canceled because patient was developing weakness, shortness of breath and cough. CT of chest without contrast showed peripheral interstitial changes. Dr. London saw patient for evaluation yesterday 06/14/2019 and noted patient did not appear in serious distress but was hypoxic with O2 sat 88% at room air and 79% with walking. He was concerned patient was developing pulmonary toxicity associated with bleomycin and possibly coexisting upper respiratory infection. His WBC was 26.2 although it could be partially elevated due to patient had received dexamethasone with his chemotherapy. Patient had home O2 arranged and was started on Zithromax and prednisone 20 mg q.d. which he took the last doses this morning. However patient came into ER because of worsening shortness of breath and a nonproductive cough. His O2 sat was 84% on 4 L nasal cannula. A chest CTA did not show acute pulmonary embolism but there are areas of increasing consolidation in the lower lungs as well as developing bronchiectasis compared to CT from 06/13/2019. Patient is therefore being admitted for worsening acute hypoxic respiratory failure associated with lung toxicity due to bleomycin and possible superimposed pneumonia. Discharge Providers Provider Date of admission: 06/15/19 16:58 Discharge Date: 06/20/19 Primary care physician: Aaron Mesa MD Consults: 06/15/19 17:49 Consult to Dietitian, Adult Routine Comment: Reason For Exam: per protocol of admission >6lb weight Discharge provider: Braxton Austin DO Summary Hospital Course Discharge Diagnosis: 1. Acute hypoxemic respiratory failure, present on admission. Active. 2. Acute bleomycin lung toxicity, present on admission. Active. 3. Acute bacterial pneumonia, present on admission. Active. 4. Anemia, chronic, present on admission. Stable. 5. Paroxysmal atrial fibrillation, chronic, present on admission. Stable. 6. Hypothyroidism, chronic, present on admission. Stable. 7. Metastatic testicular cancer, status post orchiectomy, chronic, present on admission. Stable. Hospital Course: Alexander Zambrano is a 73-year-old male with recently diagnosed metastatic testicular cancer (seminoma), status post inguinal radical right orchiectomy on 02/23/2019, and started on BEP 04/16/2019. He started his 3rd cycle of BEP on 06/12/2019. On day 2 of 3rd cycle of BEP was canceled because patient was developing weakness, shortness of breath and cough. Patient then presented to ER on 06/15 due to worsening dyspnea, cough and hypoxia with CT showing worsening of pulmonary airspace infiltrates with ground glass appearance consistent with Bleomycin induced pulmonary toxicity. He was initially started on methylprednisolone 60 mg daily, and he remained on high-flow nasal cannula at 55 liters/minute and 100%. Methylprednisone was increased to 60 mg t.i.d. starting on 06/18/2019. The following day his oxygenation requirements dip slightly, down to 90% FiO2 at 45 liters/minute. However, the next morning (06/19) the patient attempted to get out of bed and had a prolonged desaturation lasting about 30 minutes. Since the episode he has remained at 55 L and 100% again. His oxygen saturation continues to drop whenever he moves in his bed. Given no further improvement after steroids, and need for pulmonology consultation, patient will be transferred to [facility] in the ICU, accepting physician Dr. Melton, for a higher level of care. His respiratory status is tenuous at this time, and after discussion with Dr. Melton and clinical staff, for the safety of the patient he was intubated prior to transport. Discussion with patient and his brother was done prior to intubation regarding the risks and benefits of the procedure, including the possibility that he may have a prolonged intubation requiring tracheostomy, and they were in agreement to proceed. 1. Acute hypoxemic respiratory failure, present on admission. Active. -Etiology likely due to bleomycin lung toxicity with superimposed pneumonia. -Elevated NT proBNP at 3150 but patient's clinical presentation is not consistent with CHF. Echocardiogram showed hyperdynamic LV without systolic or diastolic dysfunction, however there was a dyssynchronous pattern consistent with a conduction delay. He does not appear volume overloaded currently. -CT scan with bilateral lower lobe ground-glass infiltrate and increasing consolidation since outpatient CT on 06/14/2019, concerning for bleomycin induced toxicity. Cannot rule out underlying infection, and patient has been treated with ceftriaxone and azithromycin as noted below. -Continue heated high-flow oxygen and treat underlying etiologies as below if able to after transport. He remained stable but still on 100% and 55 liters/minute, which had not improved since admission. As noted above, patient was intubated prior to transport as this is likely the safest option for him. He is now on 100% FiO2, with a PEEP of 5, and saturating well. Tidal volume is 450. He is currently breathing over a set rate of 14. Further we are titrating his propofol, and he is getting as needed doses of benzodiazepines currently. -Discussed the possibility of intubation and mechanical ventilation, as well as the probability that we may not be able to take him off the ventilator for which the patient indicated that he would want to full code and be intubated and mechanically ventilated if necessary. He also informed provider that he would want to be trached and to remain on long-term on ventilator support if necessary. His brother and [id number] who live in [place] are DPOA. 2. Acute bleomycin lung toxicity / drug induced pneumonitis , present on admission. Active. -CT scan with bilateral lower lobe ground-glass infiltrate and increasing consolidation since outpatient CT on 06/14/2019. -Patient's onset of symptoms correlate with initiation of bleomycin. -Continue high-dose glucocorticoids with Solu-Medrol 60 mg every 8 hours and will plan for slow taper of glucocorticoids over next several months. He improved slightly when dosing was increased from daily to q8hr. -patient will be transferred for higher level of care and further consultation with pulmonology for this. 3. Acute bacterial pneumonia, present on admission. Active. -Patient likely has superimposed bacterial pneumonia based on rapidly worsening CT appearance. -Initial WBC elevated at 17.3 and procalcitonin 0.15. WBC elevated in setting of high-dose glucocorticoids but trending down now 15.3 Continue to monitor WBC daily. -Patient had elevated lactate of 3.4 due to hypoxemic respiratory failure and resolved after IV fluid hydration. -Ordered complete pneumonia workup including: Respiratory PCR negative. Strep pneumoniae and Legionella urine antigens, pending. Blood cultures x2 have no growth. -Continue Rocephin 1 g IV daily (first dose 06/15). He completed azithromycin 500 mg IV daily x 3 doses for broad-spectrum coverage and pulmonary anti-inflammatory effect. 4. Anemia, chronic, present on admission. Stable. -initial hemoglobin 8.5, Current hemoglobin 10.4 after 2 units PRBCs as noted below. -Status post 2 units PRBC with Lasix 20 mg IV in between which was given to dry cleaner helper in oxygen delivery. 5. Paroxysmal atrial fibrillation, chronic, present on admission. Stable. -Patient previously had paroxysmal atrial fibrillation due to electrolyte disturbances on prior hospitalization. -Currently in sinus rhythm with frequent PVCs on telemetry. Continue to monitor closely on telemetry. -Continue metoprolol succinate 25 mg daily. 6. Hypothyroidism, chronic, present on admission. Stable. -TSH normal at 2.69. -Continue home levothyroxine 150 mcg daily. 7. Metastatic testicular cancer, status post orchiectomy, chronic, present on admission. Stable. History as noted above. -Patient is followed by Dr. London of oncology. -Patients by chemotherapy with bleomycin has been discontinued. Continue outpatient follow-up with oncology once patient recovers from acute illness. -Patient was seen by Dr. Fox of oncology as an inpatient. Stated that the patient had minimal residual disease after orchidectomy, with some mild lymphadenopathy but was otherwise doing well. He anticipates a good prognosis if patient recovers from toxicity. 8. Severe Acute protein calorie malnutrition - r/t loss of appetite secondary to met testicular Ca aeb 7% unintentional wt loss in 4w, eats one meal per day, pt reports weakness, saggy skin throughout indicative of sudden wt loss. -appreciate Nutrition recommendations - vanilla protein milkshake daily, ONS ensure with meal trays to support PCM 9. Transaminitis, acute -unclear etiology, patient had AST and ALT elevations into the 200s on 2. These improved into the 100s on 06/20. Most likely etiology at this time is prolonged hypoxia. Code status: Full code DVT prophylaxis: SQ Enoxaparin Disposition: Accepted to [facility] ICU for higher level of care and pulmonology evaluation. Accepting physician is Dr. Melton. I spent 45 minutes providing critical care management this patient. This excludes time spent in performing separately billed procedures. Status at Discharge Cognitive/behavioral status at discharge: oriented Time Spent with Patient Time spent: Greater than 30 minutes Exam Vital Signs (past 8 hours): - 06/20/19 07:30 06/20/19 09:00 06/20/19 12:00 Temperature 97.7 F 97.8 F Pulse Rate 84 95 H Respiratory Rate 18 18 Blood Pressure 143/79 H 139/73 Pulse Oximetry 94 92 98 06/20/19 13:00 Temperature Pulse Rate Respiratory Rate Blood Pressure Pulse Oximetry 93 Fraction of Inspired Oxygen 101.1 Oxygen Delivery Method High Flow Nasal Cannula,Heated High Flow Oxygen Flow Rate 55 Narrative Exam Narrative: General: Elderly gentleman sitting in bed and in no acute distress, well-developed, well-nourished, appropriately interactive. HEENT: Normocephalic, atraumatic. External ears without defect. Pupils equal, round, and reactive to light. Anicteric sclerae, moist conjunctivae, and no lid lag. Oropharynx free of erythema and cobble stoning with moist mucosa. Heated high-flow oxygen nasal cannula in place. Neck: Supple with full range of motion. No jugular venous distension. No bruits. No lymphadenopathy or thyromegaly. Cardiovascular: Regular rate and rhythm without murmurs, rubs, or gallops appreciated. Pulmonary: Significantly diminished throughout with little air movement and scattered crackles in lower lung garner. No wheezes or rhonchi. Abdomen: Soft, bowel sounds present, nontender, nondistended. No hepatosplenomegaly or masses appreciated. Extremities: No clubbing, cyanosis, or edema. Skin: Normal temperature, turgor, and texture; no rash, ulcers, or subcutaneous nodules appreciated. Neurological: Cranial nerves grossly intact. Psychiatric: Normal mood and affect. Alert and oriented to person, place, and time. Objective Labs Result Diagrams: 06/20/19 08:20 06/20/19 08:20 Labs: Laboratory Results - last 24 hr 06/20/19 06/20/19 06/20/19 08:20 08:20 08:20 WBC 15.3 H RBC 3.50 L Hgb 10.4 L Hct 30.1 L MCV 85.9 MCH 29.8 MCHC 34.6 RDW 14.5 Plt Count 251 Neut % (Auto) 94.2 H Lymph % (Auto) 1.8 L Coal % (Auto) 3.8 Eos % (Auto) 0.0 L Baso % (Auto) 0.2 Neut # (Auto) 09835 H Lymph # (Auto) 300 L Coal # (Auto) 600 Eos # (Auto) 0 Baso # (Auto) 0 Sodium 131 L Potassium 4.2 Chloride 93 L Carbon Dioxide 30 BUN 33 H Creatinine 0.60 L Estimated GFR > 60.0 BUN/Creatinine Ratio 55.0 H Glucose 120 H Calcium 8.4 Total Bilirubin 0.5 AST 107 H ALT 200 H Alkaline Phosphatase 99 Total Protein 5.8 L Albumin 2.7 L Globulin 3.1 Albumin/Globulin Ratio 0.9 L Procalcitonin 0.17 Discharge Plan Discharge Plan Disposition: [facility] Hospital Discharge orders & Medications Follow up/Referrals: Aaron Mesa MD [Primary Care Provider] - Discharge Health Status Health Concerns: Bleomycin toxicity, acute respiratory failure Discharge Data Primary Care Provider: Aaron Mesa Quality VTE Deep Vein Thrombosis/Pulmonary Embolism Present on Admission: No
--- NOTE | 2019-06-20 15:33 | PC.NURSE ---
Am shift Pt is on Heated flow with 55L 100% Fio2. Lungs are dim, Pt not moving much air posteriorly. Bedrest due to activity intolerance Pt is A/o x4. Making needs known. Working on transport to [facility]. NRB trial 15L for 1 hr, tolerating with Spo2 90-92%. Report called into Aaron [employer] Bed [id number].
[2019-06-20] MEDS: MIDAZOLAM 5 MG/ML VIAL 10 MG (16:15)
--- NOTE | 2019-06-20 16:24 | P.PCN_ITS ---
Procedures Date/Time Date of procedure: 06/20/19 Time of procedure: 16:10 Intubation Time out performed: Yes Sedative: versed Mg given: 1 (1 mg given in pre-induction and 1 mg given post-induction. (total of 2 mg)) Paralytic: rocuronium (10mg rocuronium, 100mg succinyl choline) Laryngoscope: Miranda (Miranda 2) ET tube size: 7.5 ET tube uncuffed: No Tube secured depth (cm): 23 Tube secured location: teeth Tube placement confirmation: visualized tube passing through cords, equal breath sounds bilaterally and confirmation by capnometry Patient tolerated procedure: well Intubation complications: none Additional comments: Patient with respiratory failure secondary to chemotherapy given for testicular cancer. He is on non-rebreather O2 at high volume. Patient is being transferred to [facility] for further management and intubation requested by hospitalist in anticipation of transport. Discussed procedure; patient understands and questions answered. Pre-O2 for 3 minutes with high-flow ambu. IV sedation and intubation meds given as listed above. Uneventful except for transient drop in O2 sat to 86% which responded quickly to ventilation. Patient placed on titrated propofol infusion. 2 mg Vasopressin IV given for drop in BP (secondary to IV sedation needed).
--- NOTE | 2019-06-20 16:45 | DI.RAD.S_ITS ---
PROCEDURE: XR CHEST 1V INDICATIONS: intubated TECHNIQUE: One view of the chest was acquired. COMPARISON: [facility], CR, XR CHEST 1V, 06/19/2019, 9:49. FINDINGS: Surgical changes and devices: An endotracheal tube is identified with the tip positioned approximately 3.5 cm above the level of the jer. A left-sided central line catheter is identified with the tip overlying the mid superior vena cava. The bibasilar airspace disease is identified that partially obscure the diaphragms and is similar to the prior study. No large effusion or pneumothorax is evident. Lungs and pleura: Lungs are clear. No pleural effusions or pneumothorax. Mediastinum: Mediastinal contours appear normal. Heart size is normal. Bones and chest wall: No suspicious bony lesions. Overlying soft tissues appear unremarkable. IMPRESSION: 1. Endotracheal tube appears to be in appropriate position. 2. Bibasilar airspace disease may represent scarring, atelectasis, atypical edema, or pneumonia. Dictated by: David Cleary M.D. on 06/20/2019 at 16:18 Approved by: David Cleary M.D. on 06/20/2019 at 16:22
[2019-06-20] MEDS: PHENYLEPHRINE 20,000 MCG in DEXTROSE 5% IN WATER 250 ML 75 ML IV (16:50)
[2019-06-20] MEDS: ROCURONIUM 50 MG/5 ML INJ 10 MG IV (17:20)
[2019-06-20] MEDS: VASOPRESSIN 20 UNIT/ML VIAL (17:30)
--- NOTE | 2019-06-20 18:55 | PC.NURSE ---
md discussed with pt and poa ( pts brother) and plan for intubation prior to transfer to [facility] for further pulmonary care - easy intubation with 7.5 tube 24 at teeth, no secretions- blood pressure dropped with intubation meds and clif-synephrine gtt intitiated - transferred to [facility] AND UPDATE PHONE CALL GIVEN TO ACCEPTING RN WITH THESE UPDATES- DISCHARGED FROM HOSPITAL AT [id number]
[2019-06-20] MEDS: MORPHINE 4 MG/ML INJ (19:04)
[2019-06-20] MEDS: propofoL 1,000 MG/100 ML VIAL 22.38 MG IV (19:07)
[2019-06-20] MEDS: SUCCINYLCHOLINE 100 MG/5 ML INJ IV (19:07)
[2019-06-21 15:56] LABS: Strep pneumoniae Ag, Urine NOT DETECTED
== END 2019-06-20 18:39 | disposition short-term general hospital (02) | DRG 208 ==
LOC: ED 16:09 → AC 16:59 → ICU 06-19 14:56
PROVIDERS: Emergency Medicine; Internal Medicine; Nurse Practitioner Adult Health; Admitting Provider Internal Medicine; Emergency Provider Nurse Practitioner; PCP Family Medicine; Visit Provider Internal Medicine
DX: J70.2 Acute drug-induced interstitial lung disorders (principal); J96.01 Acute respiratory failure with hypoxia; E43 Unspecified severe protein-calorie malnutrition; C79.9 Secondary malignant neoplasm of unspecified site; J15.9 Unspecified bacterial pneumonia; C62.11 Malignant neoplasm of descended right testis; I11.9 Hypertensive heart disease without heart failure; I48.0 Paroxysmal atrial fibrillation; D63.0 Anemia in neoplastic disease; T45.1X5A Adverse effect of antineoplastic and immunosuppressive drugs, initial encounter; I51.7 Cardiomegaly; K44.9 Diaphragmatic hernia without obstruction or gangrene; I70.0 Atherosclerosis of aorta; I25.10 Atherosclerotic heart disease of native coronary artery without angina pectoris; E03.9 Hypothyroidism, unspecified; R94.5 Abnormal results of liver function studies; Z87.891 Personal history of nicotine dependence; Z68.24 Body mass index [BMI] 24.0-24.9, adult
CPT/HCPCS: 36430; 36591; 36592; 36600; 71045; 71046; 71250; 71275; 80048; 80053; 81003; 82550; 82805; 83605; 83735; 83880; 84145; 84443; 84484; 85025; 86850; 86900; 86901; 87040; 87449; 87502; 87633; 87797; 93005; 93306; 94002; 94618; 94640; 94760; 94762; 96360; 96361; 96374; 96375; 96411; 96413; 96415; 96417; 99214; 99285; P9016; J0330; J1100; J1453; J1642; J1650; J1940; J2060; J2150; J2250; J2270; J2405; J2704; J2930; J3475; J3480; J7613; J9040; J9060; J9181; Q9967